=== PATIENT | male | born 1945 | race Caucasian/White ===

== ENCOUNTER 2017-03-20 10:05 | Inpatient (IN) | payer OTHER ==
[2017-03-20] MEDS ORDERED: PHARMACY CONSULT - DOSE _____ XX SCH (12:16)
[2017-03-20] MEDS ORDERED: TUSSIONEX PENNKINETIC SUSP PO PRN (12:16)
[2017-03-20] MEDS ORDERED: NS 1/2 1000 ML IV 1,000 ML IV ONE (12:22)
[2017-03-20] MEDS: NS 1/2 1000 ML IV 1,000 ML IV SCH (12:49)
[2017-03-20] MEDS: ROBITUSSIN DM PO SCH ×3 (12:49→21:16)
[2017-03-20] MEDS ORDERED: DUONEB 0.5 MG/3 MG ONE (12:56)
[2017-03-20] MEDS: DUONEB 0.5 MG/3 MG NEB SCH ×3 (13:00→20:25)
[2017-03-20 13:03] LABS: BASOPHILS # (AUTO) 0.1 X10^3/uL (0.0-0.1); BASOPHILS % (AUTO) 1.4 % (0.2-1.0); EOSINOPHILS # (AUTO) 0.2 x10^3/uL (0.0-0.2); HEMATOCRIT 32.6 % (42.0-54.0); HEMOGLOBIN 10.9 g/dL (13.5-18.0); LYMPHOCYTES # (AUTO) 0.4 X10^3/uL (1.3-2.9); LYMPHOCYTES % (AUTO) 7.9 % (21.0-51.0); MEAN CORPUSCULAR HEMOGLOBIN 26.4 pg (27.0-34.0); MEAN CORPUSCULAR HGB CONC 33.4 g/dL (33.0-35.0); MEAN CORPUSCULAR VOLUME 79.1 fL (80.0-100.0); MONOCYTES # (AUTO) 0.5 x10^3/uL (0.3-0.8); NEUTROPHILS # (AUTO) 4.2 x10^3/uL (2.2-4.8); NEUTROPHILS % (AUTO) 77.7 % (42.0-75.0); PLATELET COUNT 160 X10^3/uL (150.0-450.0); RED BLOOD COUNT 4.12 X10^6/uL (4.7-6.0); RED CELL DISTRIBUTION WIDTH 15.4 % (11.6-16.5); WHITE BLOOD COUNT 5.4 X10^3/uL (3.6-10.0)
[2017-03-20 13:10] LABS: ALANINE AMINOTRANSFERASE 14 Units/L (12-78); ALBUMIN 3.1 g/dL (3.4-5.0); ALKALINE PHOSPHATASE 97 Units/L (46-116); ASPARTATE AMINO TRANSFERASE 10 Units/L (15-37); BLOOD UREA NITROGEN 24 mg/dL (7-18); CARBON DIOXIDE 28.5 mmol/L (21-32); CHLORIDE 102 mmol/L (98-107); COR CA(FOR HYPOALB) 9.7 mg/dL (8.5-10.1); COR NA(FOR HYPERGLY) 138 mmol/L (136-145); CREATININE 0.86 mg/dL (0.70-1.30); SODIUM 136 mmol/L (136-145); TOTAL PROTEIN 6.6 g/dL (6.4-8.2); eGFR BLACK RACES > 60 (>60); eGFR NON BLACK RACES > 60 (>60)
[2017-03-20] MEDS ORDERED: SALINE 3% 15 ML NEB TX ONE (13:26)
[2017-03-20] MEDS ORDERED: SALINE 3% 15 ML NEB TX NEB ONE (13:27)
[2017-03-20] MEDS: LEVAQUIN PREMIX IV 750 MG 750 MG/150 ML BAG IV SCH (13:53)
[2017-03-20] MEDS: FORTAZ or TAZICEF INJ 1 GM in NS 100 ML IV + SPIKE MINIBAG* 100 ML IV SCH ×2 (13:53→21:16)
[2017-03-20 16:23] VITALS: BMI 35.6
--- NOTE | 2017-03-20 18:06 | RAD ---
CHEST RADIOGRAPHS PA AND LATERAL VIEWS CLINICAL HISTORY: 71-year-old male with shortness of breath and pneumonia. COMPARISON: None. FINDINGS: Partially imaged right shoulder arthroplasty. Right chest wall chemo port via subclavian ap proach with distal tip overlying the superior vena cava. The cardiopericardial silhouette is enlarged and silhouetted on the left secondary to elevation of left hemidiaphragm, basilar atelectasis and co nsolidation with air bronchograms within the left suprahilar distribution. No pneumothorax or large e ffusion. The lungs are well inflated. Pulmonary vascularity is normal. Imaged osseous structures are intact. Soft tissues are unremarkable. IMPRESSION: Consolidation left suprahilar distribution with air bronchograms with elevated left hemidiaphragm and left basilar airspace opacities. Consider CT thorax to evaluate for underlying neoplastic process pr oducing postobstructive atelectasis versus multifocal multi lobar pneumonia. Reported By:
[2017-03-20] MEDS: TYLENOL 325 MG TAB PO PRN (21:16)
[2017-03-20] MEDS: VALIUM PO PRN (22:55)
[2017-03-21] MEDS: DUONEB 0.5 MG/3 MG NEB SCH ×6 (00:57→20:16)
[2017-03-21] MEDS: NS 1/2 1000 ML IV 1,000 ML IV SCH ×2 (04:10→16:56)
[2017-03-21] MEDS: FORTAZ or TAZICEF INJ 1 GM in NS 100 ML IV + SPIKE MINIBAG* 100 ML IV SCH ×3 (06:07→21:05)
--- NOTE | 2017-03-21 06:27 | RAD ---
Examination: Portable AP chest History: SOB Comparison 03/20/2017 Findings: Stable cardiac size and position. Grossly clear right lung. No change in position of right subclavian catheter. Persistent low volume left lung with extensive areas of airspace consolidation, left diaphragm elevation. No complicating pneumothorax. Impression: No change since 1 day prior. See previously offered differential. Chest CT recommended if diagnosis has not been established. Reported By:
[2017-03-21 06:33] LABS: BASOPHILS # (AUTO) 0.1 X10^3/uL (0.0-0.1); BASOPHILS % (AUTO) 1.4 % (0.2-1.0); EOSINOPHILS # (AUTO) 0.2 x10^3/uL (0.0-0.2); EOSINOPHILS % (AUTO) 3.9 % (0.9-2.9); HEMATOCRIT 29.6 % (42.0-54.0); HEMOGLOBIN 10.2 g/dL (13.5-18.0); LYMPHOCYTES # (AUTO) 0.5 X10^3/uL (1.3-2.9); LYMPHOCYTES % (AUTO) 10.6 % (21.0-51.0); MEAN CORPUSCULAR HEMOGLOBIN 26.6 pg (27.0-34.0); MEAN CORPUSCULAR HGB CONC 34.3 g/dL (33.0-35.0); MEAN CORPUSCULAR VOLUME 77.6 fL (80.0-100.0); MEAN PLATELET VOLUME 7.1 fL (7.4-11.0); MONOCYTES # (AUTO) 0.5 x10^3/uL (0.3-0.8); MONOCYTES % (AUTO) 9.7 % (0.0-13.0); NEUTROPHILS # (AUTO) 3.6 x10^3/uL (2.2-4.8); NEUTROPHILS % (AUTO) 74.4 % (42.0-75.0); PLATELET COUNT 141 X10^3/uL (150.0-450.0); RED BLOOD COUNT 3.81 X10^6/uL (4.7-6.0); RED CELL DISTRIBUTION WIDTH 15.6 % (11.6-16.5); WHITE BLOOD COUNT 4.8 X10^3/uL (3.6-10.0)
[2017-03-21 06:50] LABS: ALANINE AMINOTRANSFERASE 13 Units/L (12-78); ALBUMIN 2.9 g/dL (3.4-5.0); ALKALINE PHOSPHATASE 84 Units/L (46-116); ASPARTATE AMINO TRANSFERASE 11 Units/L (15-37); BLOOD UREA NITROGEN 18 mg/dL (7-18); CALCIUM 8.4 mg/dL (8.5-10.1); CARBON DIOXIDE 25.1 mmol/L (21-32); CHLORIDE 103 mmol/L (98-107); COR CA(FOR HYPOALB) 9.3 mg/dL (8.5-10.1); COR NA(FOR HYPERGLY) 136 mmol/L (136-145); CREATININE 0.75 mg/dL (0.70-1.30); SODIUM 135 mmol/L (136-145); TOTAL PROTEIN 6.2 g/dL (6.4-8.2); eGFR BLACK RACES > 60 (>60); eGFR NON BLACK RACES > 60 (>60)
[2017-03-21] MEDS: ROBITUSSIN DM PO SCH ×4 (08:51→21:06)
[2017-03-21] MEDS: TYLENOL 325 MG TAB PO PRN (08:55)
[2017-03-21] MEDS: LEVAQUIN PREMIX IV 750 MG 750 MG/150 ML BAG IV SCH (13:32)
[2017-03-21] MEDS: HumuLIN R SUBCUT PRN ×3 (14:00→21:07)
[2017-03-21] MEDS: ALBUMIN HUMAN 25%- 100ML 100 ML IV SCH (14:16)
[2017-03-21] MEDS: HEMOCYTE-PLUS PO SCH (14:17)
[2017-03-21] MEDS: LYRICA CAP 75 MG PO SCH ×2 (14:17→21:07)
[2017-03-21] MEDS: ZOCOR TAB 40 MG PO SCH ×2 (16:11→21:07)
[2017-03-21] MEDS ORDERED: NS 1/2 1000 ML IV 1,000 ML IV ONE (16:53)
[2017-03-21] MEDS ORDERED: COLACE CAP 100 MG PO SCH (19:00)
[2017-03-21] MEDS: PULMICORT NEB TX 0.5 MG NEB SCH (20:16)
[2017-03-21] MEDS: MILK OF MAGNESIA PO SCH (21:06)
[2017-03-21] MEDS: COLACE CAP 100 MG PO SCH (21:06)
[2017-03-21] MEDS: FLOMAX PO SCH (21:07)
[2017-03-21] MEDS: SNACK - Diabetic Appropriate PO SCH (22:14)
[2017-03-22] MEDS: DUONEB 0.5 MG/3 MG NEB SCH ×6 (00:10→20:44)
[2017-03-22] MEDS: FORTAZ or TAZICEF INJ 1 GM in NS 100 ML IV + SPIKE MINIBAG* 100 ML IV SCH ×3 (05:35→22:32)
[2017-03-22] MEDS: NS 1/2 1000 ML IV 1,000 ML IV SCH ×2 (05:35→19:39)
[2017-03-22] MEDS: HumuLIN R SUBCUT PRN ×4 (05:36→20:50)
[2017-03-22 06:17] LABS: BASOPHILS # (AUTO) 0.1 X10^3/uL (0.0-0.1); EOSINOPHILS # (AUTO) 0.2 x10^3/uL (0.0-0.2); EOSINOPHILS % (AUTO) 4.8 % (0.9-2.9); HEMOGLOBIN 10.1 g/dL (13.5-18.0); LYMPHOCYTES # (AUTO) 0.4 X10^3/uL (1.3-2.9); LYMPHOCYTES % (AUTO) 8.9 % (21.0-51.0); MEAN CORPUSCULAR HEMOGLOBIN 26.4 pg (27.0-34.0); MEAN CORPUSCULAR HGB CONC 33.8 g/dL (33.0-35.0); MEAN CORPUSCULAR VOLUME 78.3 fL (80.0-100.0); MONOCYTES # (AUTO) 0.5 x10^3/uL (0.3-0.8); MONOCYTES % (AUTO) 11.2 % (0.0-13.0); NEUTROPHILS # (AUTO) 3.6 x10^3/uL (2.2-4.8); NEUTROPHILS % (AUTO) 74.1 % (42.0-75.0); PLATELET COUNT 149 X10^3/uL (150.0-450.0); RED BLOOD COUNT 3.83 X10^6/uL (4.7-6.0); RED CELL DISTRIBUTION WIDTH 15.8 % (11.6-16.5); WHITE BLOOD COUNT 4.9 X10^3/uL (3.6-10.0)
[2017-03-22 06:55] LABS: ALANINE AMINOTRANSFERASE 14 Units/L (12-78); ALKALINE PHOSPHATASE 80 Units/L (46-116); ASPARTATE AMINO TRANSFERASE 10 Units/L (15-37); BLOOD UREA NITROGEN 14 mg/dL (7-18); CALCIUM 8.6 mg/dL (8.5-10.1); CHLORIDE 103 mmol/L (98-107); COR CA(FOR HYPOALB) 9.4 mg/dL (8.5-10.1); COR NA(FOR HYPERGLY) 139 mmol/L (136-145); CREATININE 0.74 mg/dL (0.70-1.30); SODIUM 137 mmol/L (136-145); TOTAL PROTEIN 6.3 g/dL (6.4-8.2); eGFR BLACK RACES > 60 (>60); eGFR NON BLACK RACES > 60 (>60)
[2017-03-22] MEDS: LYRICA CAP 75 MG PO SCH ×2 (08:32→20:50)
[2017-03-22] MEDS: MILK OF MAGNESIA PO SCH ×2 (08:32→20:49)
[2017-03-22] MEDS: ROBITUSSIN DM PO SCH ×4 (08:32→20:50)
[2017-03-22] MEDS: HEMOCYTE-PLUS PO SCH (08:32)
--- NOTE | 2017-03-22 08:32 | RAD ---
Examination: Chest, PA and lateral views History: Pneumonia Comparison 03/21/2017 Findings: Stable cardiac size with grossly clear right lung. Extensive masslike consolidation left up per lobe with internal air bronchogram. Elevation left diaphragm as before. No pneumothorax or large pleural effusion. Impression: Persistent masslike consolidation left upper lobe consistent with bacterial pneumonia n eoplasm should be excluded although the air bronchogram visualized is usually associated with benign pathology. Chest CT is recommended if definitive diagnosis has not been established. Reported By:
[2017-03-22] MEDS: ALBUMIN HUMAN 25%- 100ML 100 ML IV SCH (08:33)
[2017-03-22] MEDS: PULMICORT NEB TX 0.5 MG NEB SCH ×2 (08:50→20:44)
[2017-03-22] MEDS: LEVAQUIN PREMIX IV 750 MG 750 MG/150 ML BAG IV SCH (13:45)
[2017-03-22] MEDS: TYLENOL 325 MG TAB PO PRN ×2 (13:50→22:40)
[2017-03-22] MEDS ORDERED: NS 1/2 1000 ML IV 1,000 ML IV ONE (19:37)
[2017-03-22] MEDS: ZOCOR TAB 40 MG PO SCH (20:49)
[2017-03-22] MEDS: COLACE CAP 100 MG PO SCH (20:49)
[2017-03-22] MEDS: SNACK - Diabetic Appropriate PO SCH (22:31)
[2017-03-22] MEDS: FLOMAX PO SCH (22:32)
[2017-03-23] MEDS: VALIUM PO PRN ×3 (00:23→22:10)
[2017-03-23] MEDS: DUONEB 0.5 MG/3 MG NEB SCH ×6 (00:45→20:39)
[2017-03-23] MEDS: HumuLIN R SUBCUT PRN ×4 (06:08→21:11)
[2017-03-23] MEDS: FORTAZ or TAZICEF INJ 1 GM in NS 100 ML IV + SPIKE MINIBAG* 100 ML IV SCH ×3 (06:08→20:59)
[2017-03-23 06:29] LABS: BASOPHILS # (AUTO) 0.1 X10^3/uL (0.0-0.1); BASOPHILS % (AUTO) 1.1 % (0.2-1.0); EOSINOPHILS # (AUTO) 0.3 x10^3/uL (0.0-0.2); EOSINOPHILS % (AUTO) 5.8 % (0.9-2.9); HEMATOCRIT 30.1 % (42.0-54.0); HEMOGLOBIN 10.3 g/dL (13.5-18.0); LYMPHOCYTES # (AUTO) 0.5 X10^3/uL (1.3-2.9); LYMPHOCYTES % (AUTO) 10.7 % (21.0-51.0); MEAN CORPUSCULAR HEMOGLOBIN 26.8 pg (27.0-34.0); MEAN CORPUSCULAR HGB CONC 34.2 g/dL (33.0-35.0); MEAN CORPUSCULAR VOLUME 78.3 fL (80.0-100.0); MEAN PLATELET VOLUME 6.9 fL (7.4-11.0); MONOCYTES # (AUTO) 0.5 x10^3/uL (0.3-0.8); MONOCYTES % (AUTO) 10.5 % (0.0-13.0); NEUTROPHILS # (AUTO) 3.3 x10^3/uL (2.2-4.8); NEUTROPHILS % (AUTO) 71.9 % (42.0-75.0); PLATELET COUNT 148 X10^3/uL (150.0-450.0); RED BLOOD COUNT 3.84 X10^6/uL (4.7-6.0); RED CELL DISTRIBUTION WIDTH 15.3 % (11.6-16.5); WHITE BLOOD COUNT 4.6 X10^3/uL (3.6-10.0)
[2017-03-23 06:43] LABS: ALANINE AMINOTRANSFERASE 14 Units/L (12-78); ALBUMIN 3.2 g/dL (3.4-5.0); ALKALINE PHOSPHATASE 79 Units/L (46-116); ASPARTATE AMINO TRANSFERASE 9 Units/L (15-37); BLOOD UREA NITROGEN 15 mg/dL (7-18); CALCIUM 8.6 mg/dL (8.5-10.1); CARBON DIOXIDE 28.3 mmol/L (21-32); CHLORIDE 102 mmol/L (98-107); COR CA(FOR HYPOALB) 9.2 mg/dL (8.5-10.1); COR NA(FOR HYPERGLY) 138 mmol/L (136-145); CREATININE 0.74 mg/dL (0.70-1.30); SODIUM 136 mmol/L (136-145); TOTAL PROTEIN 6.6 g/dL (6.4-8.2); eGFR BLACK RACES > 60 (>60); eGFR NON BLACK RACES > 60 (>60)
--- NOTE | 2017-03-23 06:53 | RAD ---
Examination: AP chest History: Pneumonia Comparison 03/22/2017 Findings: There is persistent opacification in the left upper chest as before. Detail is limited; rad iographic artifact obscures portions of the left base. The right lung remains grossly clear. Impression: No definite change in [address] recommended if diagnosis of the left upper lobe les ion has not been previously established. Reported By:
[2017-03-23] MEDS: TYLENOL 325 MG TAB PO PRN ×2 (07:52→14:03)
[2017-03-23] MEDS: PULMICORT NEB TX 0.5 MG NEB SCH ×2 (08:51→20:39)
[2017-03-23] MEDS: HEMOCYTE-PLUS PO SCH (10:30)
[2017-03-23] MEDS: LYRICA CAP 75 MG PO SCH ×2 (10:30→20:50)
[2017-03-23] MEDS: ALBUMIN HUMAN 25%- 100ML 100 ML IV SCH (10:30)
[2017-03-23] MEDS: MILK OF MAGNESIA PO SCH ×2 (10:31→20:50)
[2017-03-23] MEDS: ROBITUSSIN DM PO SCH ×4 (10:31→20:50)
--- NOTE | 2017-03-23 10:57 | DR.UPDATE ---
H&P Update History and Physical Update: WAS SEEN IN THE OFFICE ON 03/19/2017. PATIENT RETURNED THE FOLLOWING DAY WITH SAME COMPLAINTS AND NO IMPROVEMENT IN SYMPTOMS. PATIENT WAS ADMITTED TO THE HOSPITAL ON THE PNEUMONIA PROTOCOL FOR FURTHER TREATMENT AND EVALUATION. H&P WAS COMPLETED PRIOR TO ADMISSION. PATIENT HAS BEEN SEEN AND EXAMINED WITH NO CHANGES NOTED TO H&P. Changes noted: NO Yes with the following:
[2017-03-23] MEDS: NS 1/2 1000 ML IV 1,000 ML IV SCH ×2 (11:25→19:25)
[2017-03-23] MEDS: LEVAQUIN PREMIX IV 750 MG 750 MG/150 ML BAG IV SCH (13:00)
--- NOTE | 2017-03-23 16:18 | CT ---
HISTORY: Lung cancer left upper lobe Study: CT chest with contrast Comparison: Same day radiograph Technique: Multiple axial images of the chest were obtained from the thoracic inlet to the upper abdo men after the administration of IV contrast. Dose reduction techniques including Automated Exposure Control (AEC) and adjustment of mA and kV were utilized. Findings: There is a right chest wall port terminating in the SVC. Normal-sized heart with calcified plaque see n in the coronary arteries. The aorta is normal in caliber. There is a small pericardial effusion. Th ere is left lung volume loss. There is consolidation with air bronchograms seen in the left perihilar region. The findings could represent pneumonia. Post treatment changes such as of the patient is pat ent history of previous radiation in this region could also have a similar appearance. There is a sma ll loculated effusion in the posterior left lung base. No bulky adenopathy is seen. There are degener ative changes of the bony thorax with diffuse osteopenia multilevel spondylosis noted. No acute findi ngs are seen in visualized upper abdomen. IMPRESSION: 1. Left lung volume loss with perihilar consolidation with air bronchograms that may represent pneumo chelsi. Post radiation changes may also have a similar appearance; Correlation with any previous cross-s ectional imaging, if available, may be beneficial to exclude recurrent disease. There is a small locu lated effusion at the posterior left lung base. 2. Small pericardial effusion. Reported By:
[2017-03-23] MEDS ORDERED: NS 1/2 1000 ML IV 1,000 ML IV ONE (19:26)
--- NOTE | 2017-03-23 20:33 | PCM.PROG ---
Progress Note - Progress Note for Day of Date: 03/21/17 - Subjective Subjective: IS BEING TREATED FOR BRONCHOPNEUMONIA. TODAY, HE IS ALERT AND ORIENTED, LYING IN BED ON MORNING ROUNDS. HE CONTINUES WITH COMPLAINTS OF SHORTNESS OF BREATH AND PRODUCTIVE COUGH. THICK, YELLOW SPUTUM IS NOTED IN CONTAINER AT BEDSIDE. ON EXAMINATION, HEART IS REGULAR IN RATE AND RHYTHM. BILATERAL LUNGS ARE NOTED WITH SCATTERED WHEEZING AND RHONCHI. HE IS CURRENTLY UTILIZING OXYGEN VIA NASAL CANNULA AT 2L/MIN. ABDOMEN IS ROUND, SOFT, AND NON- TENDER WITH NORMAL BOWEL SOUNDS NOTED IN ALL QUADRANTS. THERE IS NORMAL RANGE OF MOTION NOTED TO ALL EXTREMITIES. HIS VITALS THIS MORNING ARE 97.7-88-22-96%- 141/74. LABS WERE OBTAINED. ABNORMAL LAB VALUES INCLUDE THE FOLLOWING: RBC 3.81 , HGB 10.2, HCT 29.6, SODIUM 135, GLUCOSE 154, CALCIUM 8.4, AST 11, TOTAL PROTEIN 6.2, ALBUMIN 2.9. A CHEST XRAY WAS OBTAINED TODAY AND REPORTED PERSISTENT LOW VOLUME LEFT LUNG WITH EXTENSIVE AREAS OF AIRSPACE CONSOLIDATION, LEFT DIAPHRAGM ELEVATION. TODAY, WE WILL START ALBUMIN 25% IV DAILY, PULMCORT NEB TX, AND SLIDING SCALE INSULIN. WE WILL RESUME HOME MEDICATIONS. OTHERWISE, WE WILL CONTINUE WITH CURRENT PLAN OF CARE. WE PLAN TO FOLLOW UP WITH AM LABS AND CONTINUE TO MONITOR PATIENT. - Past Medical Family Social History Past Med/Fam/Surg Hx: No changes since H&P Allergies: Allergies No Known Drug Allergies Allergy (Verified 03/20/17 12:15) - Review of Systems ROS: No change since H&P - Vital Signs and I&O's Vital Signs: Temperature 98.4 F Pulse Rate [Left Brachial] 87 Pulse Rate [Left] 92 Pulse Rate [Right Brachial] 90 Pulse Rate 89 Respiratory Rate 20 Blood Pressure [Left Arm] 139/84 Blood Pressure [Right Arm] 185/95 O2 Sat by Pulse Oximetry 98 Intake and Output: Intake & Output 03/21/17 03/22/17 03/23/17 03/24/17 11:59 11:59 11:59 11:59 Intake Total 1515 3160 3320 1340 Output Total 925 3900 2725 850 Balance 590 -740 595 490 - Physical Exam Oriented: Normal Eyes: Normal. negative: Blurred Vision, Diplopia, Discharge, Pain, Redness, Photophobia, Other Ear: Normal. negative: Right, Left, Swelling, Ecchymosis, Hemotypanum, Abrasion , Laceration Nose: Normal Throat: Normal Respiratory: Right, Left, Generalized, Wheezes, Rhonchi Cardiovascular: Normal : Normal. negative: Dysuria, Hematuria, Frequency, Discharge, Testicular Pain , Bleeding, , Other Auscultation: Bowel Sounds: Normal. negative: Bruit, Absent, Increased, Decreased, High Pitched, Other Palpation: Normal Tenderness: Normal. negative: Rebound, Guarding, Rigidity Skin: Normal Musculoskeletal: Normal Psychiatric: Normal. negative: Anxiety, Depression, Agitation, Other Mood Description: Calm Affect: negative: Angry, Anxious, Depressed, Flat, Hysterical, Quiet, Violent, Normal Speech Pattern: Clear, Appropriate - Laboratory and Diagnostics Result Diagrams: 03/23/17 05:43 03/23/17 05:43 Labs: 03/20/17 12:45 Blood Blood Culture - Preliminary 03/20/17 12:38 Blood Blood Culture - Preliminary 03/20/17 14:00 Sputum - Expectorated Sputum Sputum Culture - Final 03/20/17 14:00 Sputum - Expectorated Sputum - Final Laboratory WBC 4.6 X10^3/uL (3.6-10.0) 03/23/17 05:43 RBC 3.84 X10^6/uL (4.7-6.0) L 03/23/17 05:43 Hgb 10.3 g/dL (13.5-18.0) L 03/23/17 05:43 Hct 30.1 % (42.0-54.0) L 03/23/17 05:43 MCV 78.3 fL (80.0-100.0) L 03/23/17 05:43 MCH 26.8 pg (27.0-34.0) L 03/23/17 05:43 MCHC 34.2 g/dL (33.0-35.0) 03/23/17 05:43 RDW 15.3 % (11.6-16.5) 03/23/17 05:43 Plt Count 148 X10^3/uL (150.0-450.0) L 03/23/17 05:43 MPV 6.9 fL (7.4-11.0) L 03/23/17 05:43 Neut % 71.9 % (42.0-75.0) 03/23/17 05:43 Lymph % 10.7 % (21.0-51.0) L 03/23/17 05:43 [place] % 10.5 % (0.0-13.0) 03/23/17 05:43 Eos % 5.8 % (0.9-2.9) H 03/23/17 05:43 Baso % 1.1 % (0.2-1.0) H 03/23/17 05:43 Neut # 3.3 x10^3/uL (2.2-4.8) 03/23/17 05:43 Lymph # 0.5 X10^3/uL (1.3-2.9) L 03/23/17 05:43 [place] # 0.5 x10^3/uL (0.3-0.8) 03/23/17 05:43 Eos # 0.3 x10^3/uL (0.0-0.2) H 03/23/17 05:43 Baso # 0.1 X10^3/uL (0.0-0.1) 03/23/17 05:43 Absolute Nucleated RBC 0.0 /100WBC 03/23/17 05:43 Sodium 136 mmol/L (136-145) 03/23/17 05:43 Corrected Sodium 138 mmol/L (136-145) 03/23/17 05:43 Potassium 4.6 mmol/L (3.5-5.1) 03/23/17 05:43 Chloride 102 mmol/L (98-107) 03/23/17 05:43 Carbon Dioxide 28.3 mmol/L (21-32) 03/23/17 05:43 BUN 15 mg/dL (7-18) 03/23/17 05:43 Creatinine 0.74 mg/dL (0.70-1.30) 03/23/17 05:43 Est GFR (MDRD) Af Amer > 60 (>60) 03/23/17 05:43 Est GFR (MDRD) Non-Af > 60 (>60) 03/23/17 05:43 Glucose 197 mg/dL (65-99) H 03/23/17 05:43 POC Glucose (mg/dL) 229 mg/dL (65-99) H 03/23/17 20:16 Calcium 8.6 mg/dL (8.5-10.1) 03/23/17 05:43 Corrected Calcium 9.2 mg/dL (8.5-10.1) 03/23/17 05:43 Total Bilirubin 0.40 mg/dL (0.2-1.0) 03/23/17 05:43 AST 9 Units/L (15-37) L 03/23/17 05:43 ALT 14 Units/L (12-78) 03/23/17 05:43 Alkaline Phosphatase 79 Units/L (46-116) 03/23/17 05:43 Total Protein 6.6 g/dL (6.4-8.2) 03/23/17 05:43 Albumin 3.2 g/dL (3.4-5.0) L 03/23/17 05:43 Globulin 3.4 g/dL (2.5-4.5) 03/23/17 05:43 Albumin/Globulin Ratio 0.9 Ratio (1.1-2.1) L 03/23/17 05:43 - Plan (1) Bronchopneumonia Status: Acute Plan: CONTINUE PNEUMONIA PROTOCOL, BREATHING TX, IV ANTIBIOTICS, SUPPLEMENTAL OXYGEN (2) Diabetes Status: Chronic Qualifiers: Diabetes mellitus type: type 2 Diabetes mellitus complication status: without complication Diabetes mellitus skilled nursing insulin use: with skilled nursing use Qualified Code(s): E11.9 - Type 2 diabetes mellitus without complications ; Z79.4 - shelter (current) use of insulin; Z79.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 of insulin; Z79.4 - shelter (current) use of insulin; Z79.4 - terminal gauger supervisor ( current) use of insulin Plan: SLIDING SCALE INSULIN, CONTINUE TO MONITOR (3) Anemia Status: Chronic Qualifiers: Anemia type: iron deficiency Iron deficiency anemia type: unspecified iron deficiency Qualified Code(s): D50.9 - Iron deficiency anemia, unspecified Plan: HEMOCYTE PLUS 1 TABLET DAILY, CONTINUE TO MONITOR (4) Diabetic neuropathy Status: Chronic Qualifiers: Diabetes mellitus type: type 2 Diabetes mellitus complication detail: diabetic autonomic neuropathy Qualified Code(s): E11.43 - Type 2 diabetes mellitus with diabetic autonomic (poly)neuropathy Plan: CONTINUE LYRICA, CONTINUE TO MONITOR (5) Hyperlipidemia Status: Chronic Qualifiers: Hyperlipidemia type: mixed hyperlipidemia Qualified Code(s): E78.2 - Mixed hyperlipidemia Plan: CONTINUE ZOCOR, CONTINUE TO MONITOR (6) Anxiety Status: Chronic Plan: CONTINUE VALIUM, CONTINUE TO MONITOR
[2017-03-23] MEDS: FLOMAX PO SCH (20:50)
[2017-03-23] MEDS: COLACE CAP 100 MG PO SCH (20:50)
[2017-03-23] MEDS: ZOCOR TAB 40 MG PO SCH (20:50)
[2017-03-23] MEDS: SNACK - Diabetic Appropriate PO SCH (21:05)
[2017-03-24] MEDS: DUONEB 0.5 MG/3 MG NEB SCH ×4 (00:58→11:55)
[2017-03-24] MEDS: TYLENOL 325 MG TAB PO PRN (00:59)
[2017-03-24] MEDS: NS 1/2 1000 ML IV 1,000 ML IV SCH (01:00)
[2017-03-24] MEDS: FORTAZ or TAZICEF INJ 1 GM in NS 100 ML IV + SPIKE MINIBAG* 100 ML IV SCH (05:58)
[2017-03-24] MEDS: HumuLIN R SUBCUT PRN ×3 (05:59→06:02)
[2017-03-24 06:16] LABS: EOSINOPHILS # (AUTO) 0.3 x10^3/uL (0.0-0.2); EOSINOPHILS % (AUTO) 6.6 % (0.9-2.9); HEMATOCRIT 31.8 % (42.0-54.0); HEMOGLOBIN 10.6 g/dL (13.5-18.0); LYMPHOCYTES # (AUTO) 0.5 X10^3/uL (1.3-2.9); LYMPHOCYTES % (AUTO) 10.1 % (21.0-51.0); MEAN CORPUSCULAR HEMOGLOBIN 26.2 pg (27.0-34.0); MEAN CORPUSCULAR HGB CONC 33.3 g/dL (33.0-35.0); MEAN CORPUSCULAR VOLUME 78.8 fL (80.0-100.0); MEAN PLATELET VOLUME 6.9 fL (7.4-11.0); MONOCYTES # (AUTO) 0.5 x10^3/uL (0.3-0.8); MONOCYTES % (AUTO) 10.3 % (0.0-13.0); NEUTROPHILS # (AUTO) 3.3 x10^3/uL (2.2-4.8); PLATELET COUNT 167 X10^3/uL (150.0-450.0); RED BLOOD COUNT 4.03 X10^6/uL (4.7-6.0); RED CELL DISTRIBUTION WIDTH 15.5 % (11.6-16.5); WHITE BLOOD COUNT 4.6 X10^3/uL (3.6-10.0)
[2017-03-24 06:40] LABS: ALANINE AMINOTRANSFERASE 15 Units/L (12-78); ALBUMIN 3.2 g/dL (3.4-5.0); ALKALINE PHOSPHATASE 82 Units/L (46-116); ASPARTATE AMINO TRANSFERASE 6 Units/L (15-37); BLOOD UREA NITROGEN 15 mg/dL (7-18); CALCIUM 8.8 mg/dL (8.5-10.1); CARBON DIOXIDE 28.9 mmol/L (21-32); CHLORIDE 100 mmol/L (98-107); COR CA(FOR HYPOALB) 9.4 mg/dL (8.5-10.1); COR NA(FOR HYPERGLY) 139 mmol/L (136-145); SODIUM 136 mmol/L (136-145); TOTAL PROTEIN 6.7 g/dL (6.4-8.2); eGFR BLACK RACES > 60 (>60); eGFR NON BLACK RACES > 60 (>60)
[2017-03-24] MEDS: PULMICORT NEB TX 0.5 MG NEB SCH (08:24)
[2017-03-24] MEDS: ALBUMIN HUMAN 25%- 100ML 100 ML IV SCH (10:01)
[2017-03-24] MEDS: LEVAQUIN PREMIX IV 750 MG 750 MG/150 ML BAG IV SCH (10:02)
[2017-03-24] MEDS: HEMOCYTE-PLUS PO SCH (10:02)
[2017-03-24] MEDS: LYRICA CAP 75 MG PO SCH (10:02)
[2017-03-24] MEDS: ROBITUSSIN DM PO SCH (10:03)
[2017-03-24] MEDS: MILK OF MAGNESIA PO SCH (10:03)
[2017-03-24 12:15] VITALS: BP 194/91
--- NOTE | 2017-03-24 12:18 | PCM.PROG ---
Progress Note - Progress Note for Day of Date: 03/22/17 - Subjective Subjective: IS BEING TREATED FOR BRONCHOPNEUMONIA. TODAY, HE IS ALERT AND ORIENTED, LYING IN BED ON MORNING ROUNDS. HE CONTINUES WITH COMPLAINTS OF SHORTNESS OF BREATH AND PRODUCTIVE COUGH. ON EXAMINATION, HEART IS REGULAR IN RATE AND RHYTHM. BILATERAL LUNGS ARE NOTED WITH SCATTERED WHEEZING AND RHONCHI. HE IS CURRENTLY UTILIZING OXYGEN VIA NASAL CANNULA AT 2L/MIN. ABDOMEN IS ROUND, SOFT, AND NON-TENDER WITH NORMAL BOWEL SOUNDS NOTED IN ALL QUADRANTS. THERE IS NORMAL RANGE OF MOTION NOTED TO ALL EXTREMITIES. HIS VITALS THIS MORNING ARE 98.0-94-22-97%-144/88. LABS WERE OBTAINED. ABNORMAL LAB VALUES INCLUDE THE FOLLOWING: RBC 3.83, HGB 10.1, HCT 30.0, PLT COUNT 149, GLUCOSE 197, AST 9, ALBUMIN 3.2. A CHEST XRAY WAS OBTAINED TODAY AND REPORTED PERSISTENT MASSLIKE CONSOLIDATION LEFT UPPER LOBE CONSISTENT WITH BACTERIAL PNEUMONIA. NEOPLASM SHOULD BE EXCLUDED ALTHOUGH THE AIR BRONCHOGRAM VISUALIZED IS USUALLY ASSOCIATED WITH BENIGN PATHOLOGY. TODAY, WE WILL CONTINUE WITH IV ANTIBIOTICS, RESPIRATORY TREATMENTS, AND CURRENT PLAN OF CARE. WE PLAN TO FOLLOW UP WITH AM LABS AND CHEST XRAY AND CONTINUE TO MONITOR PATIENT. - Past Medical Family Social History Past Med/Fam/Surg Hx: No changes since H&P Allergies: Allergies No Known Drug Allergies Allergy (Verified 03/20/17 12:15) - Review of Systems ROS: No change since H&P - Vital Signs and I&O's Vital Signs: Temperature 98 F Pulse Rate [Left Brachial] 100 Pulse Rate [Left] 92 Pulse Rate [Right Brachial] 90 Pulse Rate 89 Respiratory Rate 22 Blood Pressure [Left Arm] 194/91 Blood Pressure [Right Arm] 185/95 O2 Sat by Pulse Oximetry 99 Intake and Output: Intake & Output 03/22/17 03/23/17 03/24/17 03/25/17 11:59 11:59 11:59 11:59 Intake Total 3160 3320 2780 Output Total 3900 2725 3100 Balance -740 595 -320 - Physical Exam Oriented: Normal Eyes: Normal. negative: Blurred Vision, Diplopia, Discharge, Pain, Redness, Photophobia, Other Ear: Normal. negative: Right, Left, Swelling, Ecchymosis, Hemotypanum, Abrasion , Laceration Nose: Normal Throat: Normal Respiratory: Right, Left, Generalized, Wheezes, Rhonchi Cardiovascular: Normal : Normal. negative: Dysuria, Hematuria, Frequency, Discharge, Testicular Pain , Bleeding, , Other Auscultation: Bowel Sounds: Normal. negative: Bruit, Absent, Increased, Decreased, High Pitched, Other Palpation: Normal Tenderness: Normal. negative: Rebound, Guarding, Rigidity Skin: Normal Musculoskeletal: Normal Psychiatric: Normal. negative: Anxiety, Depression, Agitation, Other Mood Description: Calm Affect: negative: Angry, Anxious, Depressed, Flat, Hysterical, Quiet, Violent, Normal Speech Pattern: Clear, Appropriate - Laboratory and Diagnostics Result Diagrams: 03/24/17 05:40 03/24/17 05:40 Labs: 03/20/17 12:45 Blood Blood Culture - Preliminary 03/20/17 12:38 Blood Blood Culture - Preliminary 03/20/17 14:00 Sputum - Expectorated Sputum Sputum Culture - Final 03/20/17 14:00 Sputum - Expectorated Sputum - Final Laboratory WBC 4.6 X10^3/uL (3.6-10.0) 03/24/17 05:40 RBC 4.03 X10^6/uL (4.7-6.0) L 03/24/17 05:40 Hgb 10.6 g/dL (13.5-18.0) L 03/24/17 05:40 Hct 31.8 % (42.0-54.0) L 03/24/17 05:40 MCV 78.8 fL (80.0-100.0) L 03/24/17 05:40 MCH 26.2 pg (27.0-34.0) L 03/24/17 05:40 MCHC 33.3 g/dL (33.0-35.0) 03/24/17 05:40 RDW 15.5 % (11.6-16.5) 03/24/17 05:40 Plt Count 167 X10^3/uL (150.0-450.0) 03/24/17 05:40 MPV 6.9 fL (7.4-11.0) L 03/24/17 05:40 Neut % 72.0 % (42.0-75.0) 03/24/17 05:40 Lymph % 10.1 % (21.0-51.0) L 03/24/17 05:40 [place] % 10.3 % (0.0-13.0) 03/24/17 05:40 Eos % 6.6 % (0.9-2.9) H 03/24/17 05:40 Baso % 1.0 % (0.2-1.0) 03/24/17 05:40 Neut # 3.3 x10^3/uL (2.2-4.8) 03/24/17 05:40 Lymph # 0.5 X10^3/uL (1.3-2.9) L 03/24/17 05:40 [place] # 0.5 x10^3/uL (0.3-0.8) 03/24/17 05:40 Eos # 0.3 x10^3/uL (0.0-0.2) H 03/24/17 05:40 Baso # 0.0 X10^3/uL (0.0-0.1) 03/24/17 05:40 Absolute Nucleated RBC 0.0 /100WBC 03/24/17 05:40 Sodium 136 mmol/L (136-145) 03/24/17 05:40 Corrected Sodium 139 mmol/L (136-145) 03/24/17 05:40 Potassium 4.6 mmol/L (3.5-5.1) 03/24/17 05:40 Chloride 100 mmol/L (98-107) 03/24/17 05:40 Carbon Dioxide 28.9 mmol/L (21-32) 03/24/17 05:40 BUN 15 mg/dL (7-18) 03/24/17 05:40 Creatinine 0.80 mg/dL (0.70-1.30) 03/24/17 05:40 Est GFR (MDRD) Af Amer > 60 (>60) 03/24/17 05:40 Est GFR (MDRD) Non-Af > 60 (>60) 03/24/17 05:40 Glucose 241 mg/dL (65-99) H 03/24/17 05:40 POC Glucose (mg/dL) 249 mg/dL (65-99) H 03/24/17 11:49 Calcium 8.8 mg/dL (8.5-10.1) 03/24/17 05:40 Corrected Calcium 9.4 mg/dL (8.5-10.1) 03/24/17 05:40 Total Bilirubin 0.50 mg/dL (0.2-1.0) 03/24/17 05:40 AST 6 Units/L (15-37) L 03/24/17 05:40 ALT 15 Units/L (12-78) 03/24/17 05:40 Alkaline Phosphatase 82 Units/L (46-116) 03/24/17 05:40 Total Protein 6.7 g/dL (6.4-8.2) 03/24/17 05:40 Albumin 3.2 g/dL (3.4-5.0) L 03/24/17 05:40 Globulin 3.5 g/dL (2.5-4.5) 03/24/17 05:40 Albumin/Globulin Ratio 0.9 Ratio (1.1-2.1) L 03/24/17 05:40 - Plan (1) Bronchopneumonia Status: Acute Plan: CONTINUE PNEUMONIA PROTOCOL, BREATHING TX, IV ANTIBIOTICS, SUPPLEMENTAL OXYGEN (2) Diabetes Status: Chronic Qualifiers: Diabetes mellitus type: type 2 Diabetes mellitus complication status: without complication Diabetes mellitus petroleum terminal plant operator insulin use: with senior care use Qualified Code(s): E11.9 - Type 2 diabetes mellitus without complications ; Z79.4 - intermediate (current) use of insulin; Z79.4 - petroleum terminal plant operator (current) use of insulin; Z79.4 - petroleum terminal plant operator (current) use of insulin; Z79.4 - intermediate ( current) use of insulin Plan: SLIDING SCALE INSULIN, CONTINUE TO MONITOR (3) Anemia Status: Chronic Qualifiers: Anemia type: iron deficiency Iron deficiency anemia type: unspecified iron deficiency Qualified Code(s): D50.9 - Iron deficiency anemia, unspecified Plan: HEMOCYTE PLUS 1 TABLET DAILY, CONTINUE TO MONITOR (4) Diabetic neuropathy Status: Chronic Qualifiers: Diabetes mellitus type: type 2 Diabetes mellitus complication detail: diabetic autonomic neuropathy Qualified Code(s): E11.43 - Type 2 diabetes mellitus with diabetic autonomic (poly)neuropathy Plan: CONTINUE LYRICA, CONTINUE TO MONITOR (5) Hyperlipidemia Status: Chronic Qualifiers: Hyperlipidemia type: mixed hyperlipidemia Qualified Code(s): E78.2 - Mixed hyperlipidemia Plan: CONTINUE ZOCOR, CONTINUE TO MONITOR (6) Anxiety Status: Chronic Plan: CONTINUE VALIUM, CONTINUE TO MONITOR
--- NOTE | 2017-03-24 12:27 | PCM.PROG ---
Progress Note - Progress Note for Day of Date: 03/23/17 - Subjective Subjective: IS BEING TREATED FOR BRONCHOPNEUMONIA. TODAY, HE IS ALERT AND ORIENTED, LYING IN BED ON MORNING ROUNDS. HE CONTINUES WITH COMPLAINTS OF SHORTNESS OF BREATH AND PRODUCTIVE COUGH. HE REPORTS THAT THE SHORTNESS OF BREATH HAS INCREASED SINCE YESTERDAY. ON EXAMINATION, HEART IS REGULAR IN RATE AND RHYTHM. BILATERAL LUNGS CONTINUE WITH SCATTERED WHEEZING AND RHONCHI. HE IS CURRENTLY UTILIZING OXYGEN VIA NASAL CANNULA AT 2L/MIN. ABDOMEN IS ROUND, SOFT, AND NON-TENDER WITH NORMAL BOWEL SOUNDS NOTED IN ALL QUADRANTS. THERE IS NORMAL RANGE OF MOTION NOTED TO ALL EXTREMITIES. HIS VITALS THIS MORNING ARE 97.7-92-24 -97%-139/84. LABS WERE OBTAINED. HE REMAINS HEMODYNAMICALLY STABLE TODAY. A CHEST XRAY WAS OBTAINED TODAY AND REPORTED PERSISTENT OPACIFICATION IN THE LEFT UPPER CHEST. DUE TO INCREASED SHORTNESS OF BREATH AND HISTORY OF LUNG CANCER, A CHEST CT WITH CONTRAST WILL BE ORDERED FOR TODAY. OTHERWISE, WE WILL CONTINUE WITH IV ANTIBIOTICS, RESPIRATORY TREATMENTS, AND CURRENT PLAN OF CARE. WE PLAN TO FOLLOW UP WITH AM LABS AND CHEST XRAY AND CONTINUE TO MONITOR PATIENT. - Past Medical Family Social History Past Med/Fam/Surg Hx: No changes since H&P Allergies: Allergies No Known Drug Allergies Allergy (Verified 03/20/17 12:15) - Review of Systems ROS: No change since H&P - Vital Signs and I&O's Vital Signs: Temperature 98 F Pulse Rate [Left Brachial] 100 Pulse Rate [Left] 92 Pulse Rate [Right Brachial] 90 Pulse Rate 89 Respiratory Rate 22 Blood Pressure [Left Arm] 194/91 Blood Pressure [Right Arm] 185/95 O2 Sat by Pulse Oximetry 99 Intake and Output: Intake & Output 03/22/17 03/23/17 03/24/17 03/25/17 11:59 11:59 11:59 11:59 Intake Total 3160 3320 2780 Output Total 3900 2725 3100 Balance -740 595 -320 - Physical Exam Oriented: Normal Eyes: Normal. negative: Blurred Vision, Diplopia, Discharge, Pain, Redness, Photophobia, Other Ear: Normal. negative: Right, Left, Swelling, Ecchymosis, Hemotypanum, Abrasion , Laceration Nose: Normal Throat: Normal Respiratory: Right, Left, Generalized, Wheezes, Rhonchi Cardiovascular: Normal : Normal. negative: Dysuria, Hematuria, Frequency, Discharge, Testicular Pain , Bleeding, , Other Auscultation: Bowel Sounds: Normal. negative: Bruit, Absent, Increased, Decreased, High Pitched, Other Palpation: Normal Tenderness: Normal. negative: Rebound, Guarding, Rigidity Skin: Normal Musculoskeletal: Normal Psychiatric: Normal. negative: Anxiety, Depression, Agitation, Other Mood Description: Calm Affect: negative: Angry, Anxious, Depressed, Flat, Hysterical, Quiet, Violent, Normal Speech Pattern: Clear, Appropriate - Laboratory and Diagnostics Result Diagrams: 03/24/17 05:40 03/24/17 05:40 Labs: 03/20/17 12:45 Blood Blood Culture - Preliminary 03/20/17 12:38 Blood Blood Culture - Preliminary 03/20/17 14:00 Sputum - Expectorated Sputum Sputum Culture - Final 03/20/17 14:00 Sputum - Expectorated Sputum - Final Laboratory WBC 4.6 X10^3/uL (3.6-10.0) 03/24/17 05:40 RBC 4.03 X10^6/uL (4.7-6.0) L 03/24/17 05:40 Hgb 10.6 g/dL (13.5-18.0) L 03/24/17 05:40 Hct 31.8 % (42.0-54.0) L 03/24/17 05:40 MCV 78.8 fL (80.0-100.0) L 03/24/17 05:40 MCH 26.2 pg (27.0-34.0) L 03/24/17 05:40 MCHC 33.3 g/dL (33.0-35.0) 03/24/17 05:40 RDW 15.5 % (11.6-16.5) 03/24/17 05:40 Plt Count 167 X10^3/uL (150.0-450.0) 03/24/17 05:40 MPV 6.9 fL (7.4-11.0) L 03/24/17 05:40 Neut % 72.0 % (42.0-75.0) 03/24/17 05:40 Lymph % 10.1 % (21.0-51.0) L 03/24/17 05:40 [place] % 10.3 % (0.0-13.0) 03/24/17 05:40 Eos % 6.6 % (0.9-2.9) H 03/24/17 05:40 Baso % 1.0 % (0.2-1.0) 03/24/17 05:40 Neut # 3.3 x10^3/uL (2.2-4.8) 03/24/17 05:40 Lymph # 0.5 X10^3/uL (1.3-2.9) L 03/24/17 05:40 [place] # 0.5 x10^3/uL (0.3-0.8) 03/24/17 05:40 Eos # 0.3 x10^3/uL (0.0-0.2) H 03/24/17 05:40 Baso # 0.0 X10^3/uL (0.0-0.1) 03/24/17 05:40 Absolute Nucleated RBC 0.0 /100WBC 03/24/17 05:40 Sodium 136 mmol/L (136-145) 03/24/17 05:40 Corrected Sodium 139 mmol/L (136-145) 03/24/17 05:40 Potassium 4.6 mmol/L (3.5-5.1) 03/24/17 05:40 Chloride 100 mmol/L (98-107) 03/24/17 05:40 Carbon Dioxide 28.9 mmol/L (21-32) 03/24/17 05:40 BUN 15 mg/dL (7-18) 03/24/17 05:40 Creatinine 0.80 mg/dL (0.70-1.30) 03/24/17 05:40 Est GFR (MDRD) Af Amer > 60 (>60) 03/24/17 05:40 Est GFR (MDRD) Non-Af > 60 (>60) 03/24/17 05:40 Glucose 241 mg/dL (65-99) H 03/24/17 05:40 POC Glucose (mg/dL) 249 mg/dL (65-99) H 03/24/17 11:49 Calcium 8.8 mg/dL (8.5-10.1) 03/24/17 05:40 Corrected Calcium 9.4 mg/dL (8.5-10.1) 03/24/17 05:40 Total Bilirubin 0.50 mg/dL (0.2-1.0) 03/24/17 05:40 AST 6 Units/L (15-37) L 03/24/17 05:40 ALT 15 Units/L (12-78) 03/24/17 05:40 Alkaline Phosphatase 82 Units/L (46-116) 03/24/17 05:40 Total Protein 6.7 g/dL (6.4-8.2) 03/24/17 05:40 Albumin 3.2 g/dL (3.4-5.0) L 03/24/17 05:40 Globulin 3.5 g/dL (2.5-4.5) 03/24/17 05:40 Albumin/Globulin Ratio 0.9 Ratio (1.1-2.1) L 03/24/17 05:40 - Plan (1) Bronchopneumonia Status: Acute Plan: CONTINUE PNEUMONIA PROTOCOL, BREATHING TX, IV ANTIBIOTICS, SUPPLEMENTAL OXYGEN (2) Shortness of breath Status: Acute Plan: OBTAIN CHEST CT WITH CONTRAST, CONTINUE TO MONITOR (3) Diabetes Status: Chronic Qualifiers: Diabetes mellitus type: type 2 Diabetes mellitus complication status: without complication Diabetes mellitus keno terminal operator insulin use: with keno terminal operator use Qualified Code(s): E11.9 - Type 2 diabetes mellitus without complications ; Z79.4 - terminal press operator (current) use of insulin; Z79.4 - half-way (current) use of insulin; Z79.4 - terminal press operator (current) use of insulin; Z79.4 - terminal press operator ( current) use of insulin Plan: SLIDING SCALE INSULIN, CONTINUE TO MONITOR (4) Anemia Status: Chronic Qualifiers: Anemia type: iron deficiency Iron deficiency anemia type: unspecified iron deficiency Qualified Code(s): D50.9 - Iron deficiency anemia, unspecified Plan: HEMOCYTE PLUS 1 TABLET DAILY, CONTINUE TO MONITOR (5) Diabetic neuropathy Status: Chronic Qualifiers: Diabetes mellitus type: type 2 Diabetes mellitus complication detail: diabetic autonomic neuropathy Qualified Code(s): E11.43 - Type 2 diabetes mellitus with diabetic autonomic (poly)neuropathy Plan: CONTINUE LYRICA, CONTINUE TO MONITOR (6) Hyperlipidemia Status: Chronic Qualifiers: Hyperlipidemia type: mixed hyperlipidemia Qualified Code(s): E78.2 - Mixed hyperlipidemia Plan: CONTINUE ZOCOR, CONTINUE TO MONITOR (7) Anxiety Status: Chronic Plan: CONTINUE VALIUM, CONTINUE TO MONITOR
== END 2017-03-24 12:30 | disposition home or self-care (01) | DRG 195 ==
LOC: MED/SURG 10:05 → UNDOADMIN 10:05 → MED/SURG 11:44
PROVIDERS: ADMIT Internal Medicine; ATTEND Internal Medicine
DX: J18.0 Bronchopneumonia, unspecified organism (principal); E11.65 Type 2 diabetes mellitus with hyperglycemia; E78.2 Mixed hyperlipidemia; R06.02 Shortness of breath; Z79.4 Long term (current) use of insulin; D50.9 Iron deficiency anemia, unspecified; E11.43 Type 2 diabetes mellitus with diabetic autonomic (poly)neuropathy; F41.8 Other specified anxiety disorders; Z85.118 Personal history of other malignant neoplasm of bronchus and lung
CPT/HCPCS: 36415; 71045; 71046; 71260; 80053; 85025; 87040; 87070; 87205; 94640; 94760; A4222; P9047; J0713; J1815; J1956; J7620; J7626

== ENCOUNTER → 2017-06-29 | Outpatient (CLI) | payer OTHER ==
[~2017-06-29] MED LIST: NS 100 ML IV 100 ML IV ONE
[2017-06-29 09:50] LABS: CREATININE 0.96 mg/dL (0.70-1.30)
--- NOTE | 2017-06-29 12:09 | CT ---
History: Increasing shortness of breath, history of left upper lobe cancer Study: CT chest with contrast Findings: [address] imaging through the chest is performed during the intravenous administratio n 100 mL of Omnipaque 350. Coronal and sagittal reformatted images are submitted as well. Comparison is made to a previous study of 03/23/2017. Myrtle artifacts from a right humeral head prosthesis is ag ain noted. The right subclavian Port-A-Cath remains in place. Consolidated lung within the left mid l trevor field is again noted and unchanged. Loss of left lung volume with elevation left hemidiaphragm is again noted. There has been decrease in size of a loculated left pleural effusion in the posterior i nferior aspect of the left catracho thorax. The right lung remains clear. Imaging through the upper abdom en demonstrates absence of the gallbladder. There are advanced spondylitic changes of the thoracic sp ine with resultant ankylosis as before. No lytic or sclerotic lesions are demonstrated. Impression: Chronic consolidation within the left upper lobe with loss of lung volume and elevation l eft hemidiaphragm is again noted. Decrease in size of a loculated left pleural effusion. Small to moderate-sized pericardial effusion is now demonstrated measuring almost 2 cm in maximal thi ckness. Previous cholecystectomy. Reported By:
== END | disposition home or self-care (01) ==
LOC: RAD 09:00
PROVIDERS: ATTEND Internal Medicine
DX: J44.9 Chronic obstructive pulmonary disease, unspecified (principal); C34.90 Malignant neoplasm of unspecified part of unspecified bronchus or lung; I31.3 Pericardial effusion (noninflammatory); R06.02 Shortness of breath; J98.4 Other disorders of lung
CPT/HCPCS: 36415; 71260; 82565; 84520; A4222

== ENCOUNTER 2018-04-23 17:20 | Inpatient (IN) ==
--- NOTE | 2018-04-23 18:03 | RAD ---
History: Shortness of breath Exam: Portable chest Comparison: 03/23/2017 Technique: Multiple grayscale and color flow Doppler images of the pelvis were obtained. Findings: The heart is mildly enlarged but unchanged. The pulmonary vessels are less prominent centrally . There is a right Port-A-Cath in place which is unchanged. There is volume loss throughout the left hemithorax with hazy and irregular left hilar fullness with perihilar opacity extending laterally and inferiorly which is less prominent . There is minimal blunting of left costophrenic sulcus which is less prominent. IMPRESSION: Left hilar fullness which is less prominent with hazy left perihilar and lower lobe opacities which have decreased. Recommend follow-up. Questionable tiny left pleural effusion which is less prominent. Stable mild cardiomegaly with resolving central pulmonary congestion. No change in the right Port-A-Cath. Reported By:
--- NOTE | 2018-04-23 18:04 | DR.GENAD ---
HPI Time Seen Time Seen by Provider: 04/23/18 17:56 PCP Primary Care Physician: syeda Complaint/Symptoms Chief Complaint Doctors Comments: Patient presents to the ED with complaint of severe shortness of breath. He has COPD on four liters; denies cigarettes. Shortness of breath onset this AM. He denies productive cough or fever. Chief Complaint:: pt stated he has been having speels of shortness of breath and light headed since thi morning Source History Provided: Patient Mode of Arrival Mode of Arrival: Ambulatory Timing Onset of Chief Complaint: 04/23/18 PMH PMH Past Medical History: Yes Past Medical History: COPD, Diabetes and Kidney Stones Past Surgical History: Yes Surgical History: Cholecystectomy, Ortho Surgery and Other Family History History of Family Medical Conditions: No Social History Does patient currently use any type of tobacco product: No Have you used tobacco products in the last 12 months: No Type of Tobacco Use: None Does any household member use tobacco: No Alcohol Use: None Do you use any recreational Drugs:: No Lives With: Family Lives Where: Home infectious screening In the last 2 months have you had wt loss of >10#?: NO Have you had fever, night sweats or hemotysis?: No Have you traveled outside the country in the last 6 months?: No Isolation: Standard PE Vital Signs Vitals: Temperature 98.1 F Pulse Rate [Left] 111 Pulse Rate 103 Respiratory Rate 20 Blood Pressure [Left Arm] 125/93 Blood Pressure [Right Arm] 185/95 Blood Pressure 123/71 O2 Sat by Pulse Oximetry 98 COURSE Consultation Called: 20:00 Consultation Comments: Dr. Baltazar agreed to admit for further evaluation and treatment ROR Labs Reviewed Laboratory Results Reviewed?: Yes Result Diagrams: 04/23/18 18:22 04/23/18 19:00 Laboratory: WBC 6.8 X10^3/uL (3.6-10.0) 04/23/18 18: RBC 2.16 X10^6/uL (4.7-6.0) L 04/23/18 18:22 Hgb 6.6 g/dL (13.5-18.0) L* 04/23/18 18: Hct 19.4 % (42.0-54.0) L* 04/23/18 18: MCV 89.9 fL (80.0-100.0) 04/23/18 18:22 MCH 30.6 pg (27.0-34.0) 04/23/18 18: MCHC 34.0 g/dL (33.0-35.0) 04/23/18 18: RDW 16.9 % (11.6-16.5) H 04/23/18 18: Plt Count 133 X10^3/uL (150.0-450.0) L 04/23/18 18: Plt Count Comment Adequate (ADEQUATE) 04/23/18: MPV 7.4 fL (7.4-11.0) 04/23/18 18: Neut % (Auto) 81.3 % (42.0-75.0) H 04/23/18 18: Lymph % (Auto) 8.0 % (21.0-51.0) L 04/23/18 18: [place] % (Auto) 8.8 % (0.0-13.0) 04/23/18 18: Eos % (Auto) 0.7 % (0.9-2.9) L 04/23/18 18: Baso % (Auto) 1.2 % (0.2-1.0) H 04/23/18 18: Neut # (Auto) 5.5 x10^3/uL (2.2-4.8) H 04/23/18 18:22 Lymph # (Auto) 0.5 X10^3/uL (1.3-2.9) L 04/23/18 18: [place] # (Auto) 0.6 x10^3/uL (0.3-0.8) 04/23/18 18: Eos # (Auto) 0.0 x10^3/uL (0.0-0.2) 04/23/18 18: Baso # (Auto) 0.1 X10^3/uL (0.0-0.1) 04/23/18 18: Absolute Nucleated RBC 0.1 /100WBC 04/23/18 18: Plt Morphology Comment Normal (NORMAL) 04/23/18 18: RBC Morphology Abnormal (NORMAL) 04/23/18 18: Hypochromasia 1+ A 04/23/18 18:22 Anisocytosis 1+ A 04/23/18 18:22 D-Dimer 655 ng/mL (0-400) H* 04/23/18 19:00 Sodium 141 mmol/L (136-145) 04/23/18 19:00 Corrected Sodium 142 mmol/L (136-145) 04/23/18 19:00 Potassium 4.8 mmol/L (3.5-5.1) 04/23/18 19:00 Chloride 107 mmol/L (98-107) 04/23/18 19:00 Carbon Dioxide 26.8 mmol/L (21-32) 04/23/18 19:00 BUN 75 mg/dL (7-18) H 04/23/18 19:00 Creatinine 1.07 mg/dL (0.70-1.30) 04/23/18 19:00 Est GFR (MDRD) Af Amer > 60 (>60) 04/23/18 19:00 Est GFR (MDRD) Non-Af > 60 (>60) 04/23/18 19:00 Glucose 143 mg/dL (65-99) H 04/23/18 19:00 Calcium 9.5 mg/dL (8.5-10.1) 04/23/18 19:00 Corrected Calcium 10.5 mg/dL (8.5-10.1) H 04/23/18 19:00 Total Bilirubin 0.30 mg/dL (0.2-1.0) 04/23/18 19:00 AST 18 Units/L (15-37) 04/23/18 19:00 ALT 21 Units/L (12-78) 04/23/18 19:00 Alkaline Phosphatase 99 Units/L (46-116) 04/23/18 19:00 B-Natriuretic Peptide 131 pg/mL (0-79) H 04/23/18 19:00 Total Protein 5.6 g/dL (6.4-8.2) L 04/23/18 19:00 Albumin 2.7 g/dL (3.4-5.0) L 04/23/18 19:00 Globulin 2.9 g/dL (2.5-4.5) 04/23/18 19:00 Albumin/Globulin Ratio 0.9 Ratio (1.1-2.1) L 04/23/18 19:00 Specimen Type Catherized urine 04/23/18 Urine Color Pale yellow (YELLOW) 04/23/18 Urine Appearance Clear (CLEAR) 04/23/18 Urine pH 6.0 (5.0 - 8.0) 04/23/18 Ur Specific [place] 1.005 (1.000-1.030) 04/23/18: Urine Protein 2+ (NEGATIVE) 04/23/18 Urine Glucose (UA) Negative (NEGATIVE) 04/23/18 Urine Ketones Negative (NEGATIVE) 04/23/18 Urine Occult Blood 1+ (NEGATIVE) 04/23/18 Urine Nitrite Negative (NEGATIVE) 04/23/18 Urine Bilirubin Negative (NEGATIVE) 04/23/18 Urine Urobilinogen Normal (NORMAL) 04/23/18 Ur Leukocyte Esterase 1+ (NEGATIVE) 04/23/18 Urine RBC 3-5 /HPF (NONE SEEN) 04/23/18 Urine WBC 3-5 /HPF (NONE SEEN) 04/23/18 Ur Squamous Epith Cells Rare /HPF (NEGATIVE) 04/23/18 Urine Bacteria Negative /HPF (NEGATIVE) 04/23/18 Hyaline Casts Few /LPF (NEGATIVE) 04/23/18 Ur Culture Indicated? No/not indicated 04/23/18 Blood Type O NEGATIVE 04/23/18 19:00 Antibody Screen Negative 04/23/18 19:00 Crossmatch See Detail 04/23/18 19:00 Other Results Comments: Chest compared to 03/23/17: The heart is mildly enlarged but unchanged. The pulmonary vessels are less prominent centrally. There is a right Port-A-Cath in place which is unchanged. There is volume loss throughout the left hemothorax with hazy and irregular left hilar fullness with perihilar opacity extending laterally and inferiorly which is less prominent. There is minimal blunting of left costophrenic sulcus which is less prominent. Impression: left hilar fullness which is less prominent with lazy left perihilar and lower lobe opacities which have decreased. Questionable tiny left pleural effusion which is less prominent. Stable mild cardiomegaly with resolving central pulmonary congnestion. No change in the right Port-A-Cath. 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 Moderate sized pericardial effusion and coronary atherosclerotic disease. Stable right infrahilar lymph node . Suboptimal contrast bolus timing. No large central pulmonary embolus identified however cannot evaluate segmental and subsegmental branches. XRAY XRAY Interpreted by: Radiologist Diagnosis Discharge Problem: Severe anemia, Dehydration, Elevated d-dimer COPD (chronic obstructive pulmonary disease) Qualifiers: COPD type: unspecified COPD Qualified Code(s): J44.9 - Chronic obstructive pulmonary disease, unspecified
[2018-04-23 18:53] LABS: ALANINE AMINOTRANSFERASE 21 Units/L (12-78); ALBUMIN 2.7 g/dL (3.4-5.0); ALKALINE PHOSPHATASE 99 Units/L (46-116); ASPARTATE AMINO TRANSFERASE 18 Units/L (15-37); BLOOD UREA NITROGEN 75 mg/dL (7-18); CALCIUM 9.5 mg/dL (8.5-10.1); CARBON DIOXIDE 26.8 mmol/L (21-32); CHLORIDE 107 mmol/L (98-107); COR CA(FOR HYPOALB) 10.5 mg/dL (8.5-10.1); COR NA(FOR HYPERGLY) 142 mmol/L (136-145); CREATININE 1.07 mg/dL (0.70-1.30); SODIUM 141 mmol/L (136-145); TOTAL PROTEIN 5.6 g/dL (6.4-8.2); eGFR NON BLACK RACES > 60 (>60)
[2018-04-23 18:57] LABS: B-TYPE NATRIURETIC PEPTIDE 131 pg/mL (0-79)
[2018-04-23 19:29] LABS: BASOPHILS # (AUTO) 0.1 X10^3/uL (0.0-0.1); BASOPHILS % (AUTO) 1.2 % (0.2-1.0); EOSINOPHILS % (AUTO) 0.7 % (0.9-2.9); LYMPHOCYTES # (AUTO) 0.5 X10^3/uL (1.3-2.9); MEAN CORPUSCULAR HEMOGLOBIN 30.6 pg (27.0-34.0); MEAN CORPUSCULAR VOLUME 89.9 fL (80.0-100.0); MEAN PLATELET VOLUME 7.4 fL (7.4-11.0); MONOCYTES # (AUTO) 0.6 x10^3/uL (0.3-0.8); MONOCYTES % (AUTO) 8.8 % (0.0-13.0); NEUTROPHILS # (AUTO) 5.5 x10^3/uL (2.2-4.8); NEUTROPHILS % (AUTO) 81.3 % (42.0-75.0); PLATELET COUNT 133 X10^3/uL (150.0-450.0); RED BLOOD COUNT 2.16 X10^6/uL (4.7-6.0); RED CELL DISTRIBUTION WIDTH 16.9 % (11.6-16.5); WHITE BLOOD COUNT 6.8 X10^3/uL (3.6-10.0)
[2018-04-23 19:32] LABS: HEMOGLOBIN 6.6 g/dL (13.5-18.0)
[2018-04-23 19:33] LABS: HEMATOCRIT 19.4 % (42.0-54.0)
[2018-04-23 19:34] LABS: ANISOCYTOSIS 1+; HYPOCHROMASIA 1+; PLATELET MORPHOLOGY COMMENT NORMAL (NORMAL)
[2018-04-23] MEDS ORDERED: NS 100 ML IV 100 ML ONE (20:48)
--- NOTE | 2018-04-23 21:36 | CT ---
HISTORY: Shortness of breath, lightheaded, history of left upper lobe cancer Study: CTA chest Comparison: 06/29/2017 Technique: Multiple axial images of the chest were obtained after the administration of IV contrast. 3D reconstructions were performed utilizing radial maximum intensity projection imaging. Dose reduction techniques including Automated Exposure Control (AEC) and adjustment of mA and kV were utilized. Findings: Contrast bolus timing is suboptimal. No large central pulmonary embolus is identified however cannot evaluate segmental and subsegmental branches. There are chronic post treatment changes in the left upper lobe with volume loss and consolidation that may be related to post radiation changes. Overall this has a stable appearance from prior exam. There is a moderate-sized pericardial effusion. Aorta is normal in caliber. There is callus fluid plaque in the coronary arteries. Right lung is clear. There is a stable right infrahilar lymph node measuring 2.9 x 1.8 cm. No new mass or adenopathy is identified. There are advanced degenerative changes of the bony thorax with severe degenerative changes of the spine without evidence of aggressive osseous lesion or pathologic fracture. Gallbladder is removed. There is a right chest wall port in place. IMPRESSION: 1. 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 2. Moderate-sized pericardial effusion and coronary atherosclerotic disease. 3. Stable right infrahilar lymph node as described. 4. Suboptimal contrast bolus timing. No large central pulmonary embolus identified however cannot evaluate segmental and subsegmental branches. Reported By:
[2018-04-23 22:40] LABS: BILIRUBIN,URINE NEGATIVE (NEGATIVE); BLOOD/HEMOGLOBIN,URINE 1+ (NEGATIVE); GLUCOSE, URINE NEGATIVE (NEGATIVE); KETONES,URINE NEGATIVE (NEGATIVE); LEUKOCYTE ESTERASE ,URINE 1+ (NEGATIVE); NITRITES,URINE NEGATIVE (NEGATIVE); PROTEIN,URINE 2+ (NEGATIVE); UROBILINOGEN,URINE NORMAL (NORMAL)
[2018-04-23] MEDS ORDERED: TYLENOL 325 MG TAB PO ONE ×2 (22:51→22:53)
[2018-04-23] MEDS ORDERED: BENADRYL INJ 50 MG VIAL IVP ONE (22:51)
[2018-04-23 22:52] LABS: APPEARANCE,URINE CLEAR (CLEAR); BACTERIA,URINE NEGATIVE /HPF (NEGATIVE); COLOR,URINE PALE YELLOW (YELLOW); HYALINE CASTS, URINE FEW /LPF (NEGATIVE); SQUAMOUS EPITHELIAL CELL,UR RARE /HPF (NEGATIVE)
[2018-04-23] MEDS ORDERED: BENADRYL INJ 50 MG VIAL ONE (22:53)
[2018-04-23] MEDS ORDERED: PATIENT'S HOME MEDICATION (Albuterol Sulfate [Proair Hfa] 2 PUFF) INH PRN (23:21)
[2018-04-24] MEDS ORDERED: NS 250 ML IV 250 ML ONE (00:06)
[2018-04-24] MEDS ORDERED: NS 500 ML IV 500 ML ONE ×2 (00:15→13:28)
[2018-04-24] MEDS: ATIVAN TAB 0.5 MG PO PRN ×2 (01:21→22:38)
[2018-04-24] MEDS ORDERED: VISTARIL PO ONE (04:33)
[2018-04-24] MEDS: VISTARIL PO PRN (04:37)
[2018-04-24] MEDS: NS 1000 ML 1,000 ML IV SCH ×2 (04:48→13:32)
[2018-04-24] MEDS: DUONEB 0.5 MG/3 MG NEB SCH ×5 (05:00→20:30)
[2018-04-24 05:34] LABS: ALANINE AMINOTRANSFERASE 21 Units/L (12-78); ALBUMIN 2.6 g/dL (3.4-5.0); ALKALINE PHOSPHATASE 82 Units/L (46-116); ASPARTATE AMINO TRANSFERASE 16 Units/L (15-37); BLOOD UREA NITROGEN 86 mg/dL (7-18); CALCIUM 8.9 mg/dL (8.5-10.1); CHLORIDE 106 mmol/L (98-107); COR NA(FOR HYPERGLY) 142 mmol/L (136-145); CREATININE 1.07 mg/dL (0.70-1.30); SODIUM 140 mmol/L (136-145); TOTAL PROTEIN 5.2 g/dL (6.4-8.2); eGFR NON BLACK RACES > 60 (>60)
[2018-04-24] MEDS ORDERED: GLUCOPHAGE ONE ×2 (06:17→17:06)
[2018-04-24] MEDS: GLUCOPHAGE PO SCH ×2 (06:26→17:17)
[2018-04-24] MEDS: TESSALON PERLES PO SCH ×3 (06:26→21:06)
[2018-04-24 08:26] LABS: STOOL FOR WBC NEGATIVE (NEGATIVE)
[2018-04-24] MEDS: MUCINEX EXPECTORANT PO SCH ×2 (08:26→21:06)
[2018-04-24] MEDS: LYRICA CAP 50 MG PO SCH ×2 (08:26→21:07)
[2018-04-24] MEDS: ACCUPRIL PO SCH (08:26)
[2018-04-24 08:48] VITALS: BMI 37.1
[2018-04-24] MEDS ORDERED: TIOTROPIUM BROMIDE INH SCH (09:00)
[2018-04-24 09:35] LABS: BASOPHILS # (AUTO) 0.1 X10^3/uL (0.0-0.1); BASOPHILS % (AUTO) 1.3 % (0.2-1.0); EOSINOPHILS # (AUTO) 0.1 x10^3/uL (0.0-0.2); EOSINOPHILS % (AUTO) 1.1 % (0.9-2.9); LYMPHOCYTES # (AUTO) 0.5 X10^3/uL (1.3-2.9); LYMPHOCYTES % (AUTO) 8.3 % (21.0-51.0); MEAN CORPUSCULAR HEMOGLOBIN 31.3 pg (27.0-34.0); MEAN CORPUSCULAR HGB CONC 34.2 g/dL (33.0-35.0); MEAN CORPUSCULAR VOLUME 91.5 fL (80.0-100.0); MEAN PLATELET VOLUME 7.8 fL (7.4-11.0); MONOCYTES # (AUTO) 0.6 x10^3/uL (0.3-0.8); MONOCYTES % (AUTO) 10.8 % (0.0-13.0); NEUTROPHILS # (AUTO) 4.6 x10^3/uL (2.2-4.8); NEUTROPHILS % (AUTO) 78.5 % (42.0-75.0); PLATELET COUNT 109 X10^3/uL (150.0-450.0); RED BLOOD COUNT 2.15 X10^6/uL (4.7-6.0); RED CELL DISTRIBUTION WIDTH 16.5 % (11.6-16.5); WHITE BLOOD COUNT 5.9 X10^3/uL (3.6-10.0)
[2018-04-24 09:38] LABS: HEMATOCRIT 19.7 % (42.0-54.0); HEMOGLOBIN 6.7 g/dL (13.5-18.0)
[2018-04-24] MEDS ORDERED: VALIUM INJ IVP PRN (09:54)
[2018-04-24] MEDS ORDERED: ROBITUSSIN DM ONE (10:00)
[2018-04-24] MEDS ORDERED: VALIUM ONE (10:02)
[2018-04-24] MEDS: ROBITUSSIN DM PO PRN (10:07)
[2018-04-24] MEDS: VALIUM PO PRN ×2 (10:07→21:07)
[2018-04-24] MEDS ORDERED: LASIX IVP ONE (10:55)
[2018-04-24] MEDS: PROVENTIL NEB TX 0.083% 2.5MG/ 3ML NEB PRN ×3 (12:13→16:50)
--- NOTE | 2018-04-24 12:30 | DR.H&P ---
H&P - History & Physical for Day of: H&P Date: 04/23/18 - Chief Complaint Chief Complaint: SOB, WEAKNESS - History of Present Illness History of Present Illness: 72WM ER ADMISSION WITH CO severe shortness of breath. He has COPD on four liters O2 at home; denies cigarettes. Shortness of breath onset this AM. He denies productive cough or fever. PT HAS PMH OF "CHF" DENIES ANY BYPASS OR STENT PLACEMENT. PT HAS HX OF LUNG CA, STATES HE IS IN REMISSION, UNDER THE CARE OF DR DE SOUZA. PT DENIES HX OF ANEMIA, HGB 6.6 IN ER. PT HAD CTA OF CHEST. PT ADMITTED FOR TREATMENT OF SYMPTOMATIC ANEMIA, RESP DISTRESS. - Past Medical History Past Medical History: Anxiety, Arthritis, COPD, Diabetes, GERD, Hypertension, Kidney Stones Additional Medical History: HX LUNG CANCER - Past Surgical History Surgical History: Cholecystectomy, Ortho Surgery, Other - Family History Family Medical History: Hypertension - Social History Does patient currently use any type of tobacco product: No Have you used tobacco products in the last 12 months: No Type of Tobacco Use: None Does any household member use tobacco: No Alcohol Use: None Drug Use: None - Medications Home Medications: No Known Drug Allergies Allergy (Verified 04/23/18 17:31) CONTINUE taking the following medications cholecalciferol (vitamin D3) 5,000 unit PO DAILY 04/23/18 [History] [id number] [Trelegy Ellipta] 1 inh INHALATION QDAY 04/23/18 [History] folic acid 1 mg PO BID 04/23/18 [History] furosemide 40 mg PO BID 04/23/18 [History] glycopyrrolate-formoterol [Bevespi Aerosphere] 2 inh INHALATION BID 04/23/18 [History] iron-folic acid-mv, min cmb#15 [Hemocyte-Plus] 1 cap PO DAILY 04/23/18 [History] magnesium oxide 250 mg PO BID 04/23/18 [History] - Review of Systems Constitutional: Weakness Eyes: No Symptoms Reported ENT: No Symptoms Reported Respiratory: Shortness of Breath, SOB with Excertion Cardiovascular: Edema, Light Headedness Gastrointestinal: Nausea Genitourinary: No Symptoms Reported Musculoskeletal: Back Pain Skin: No Symptoms Reported Neurological: Weakness - Physical Exam Vital Signs: Temperature 97.6 F Pulse Rate [Left] 93 Pulse Rate 101 Respiratory Rate 20 Blood Pressure [Left Arm] 125/93 Blood Pressure [Right Arm] 126/79 Blood Pressure 123/71 O2 Sat by Pulse Oximetry 98 Oriented: Normal Eyes: Normal Ear: Normal Nose: Normal Throat: Normal Respiratory: Diminished Throughout Cardiovascular: Tachycardia, Edema : Normal Auscultation: Bowel Sounds: Normal Palpation: Normal Tenderness: Normal Skin: Decreased Turgur Musculoskeletal: Back:Lumbar Psychiatric: Anxiety Affect: Anxious Speech Pattern: Clear, Appropriate, Excessive - Assessment/Plan (1) Severe anemia Status: Acute Plan: ADMIT, TRANSFUSE PRBC. ANEMIA PANEL, OCCULT STOOL. BP AND CARDIAC MONITORING. CTA CHEST IN ER ON ADMISSION. UA, CBC CMP. VERIFY HOME MEDICATION, RESP CONSULT (2) Respiratory distress Status: Acute (3) Hx of cancer of lung Status: Acute (4) Diabetes Qualifiers: Diabetes mellitus type: type 2 Diabetes mellitus edger machine operator insulin use: with edger machine operator use Diabetes mellitus complication status: without complication Qualified Code(s): E11.9 - Type 2 diabetes mellitus without complications; Z79.4 - navy fighter pilot (current) use of insulin; Z79.4 - prison (current) use of insulin; Z79.4 - prison (current) use of insulin; Z79.4 - navy fighter pilot (current) use of insulin Status: Chronic (5) Elevated d-dimer Status: Acute (6) COPD (chronic obstructive pulmonary disease) Qualifiers: COPD type: unspecified COPD Qualified Code(s): J44.9 - Chronic obstructive pulmonary disease, unspecified Status: Acute - Allergies Allergies/Adverse Reactions: Allergies Allergy/AdvReac Type Severity Reaction Status Date / Time No Known Drug Allergies Allergy Verified 04/23/18 17:31
--- NOTE | 2018-04-24 12:37 | PCM.PROG ---
Progress Note - Progress Note for Day of Date of Exam: 04/24/18 - Subjective Subjective: 72 WM ER ADMISSION WITH SOB, SYMPTOMATIC ANEMIA. PT IS S/P TRANSFUSION 2 UNITS PRBC. PT HGB ON ADMISSION 6.6, 6.7 THIS AM. PT CONTINUES WITH SOB, DIMINISHED LUNGS SOUNDS. PT CURRENTLY ON SUPPLEMENTAL O2. ABG ORDERED. RESP THERAPY, LASIX IV, INFUSE 3RD UNIT PRBC. OCCULT STOOL NEGATIVE. CONTINUE BP AND BS CONTROL - Past Medical Family Social History Past Med/Fam/Surg Hx: No changes since H&P Allergies: Allergies No Known Drug Allergies Allergy (Verified 04/23/18 17:31) - Review of Systems ROS: No change since H&P - Vital Signs and I&O's Vital Signs: Temperature 97.6 F Pulse Rate [Left] 93 Pulse Rate 101 Respiratory Rate 20 Blood Pressure [Left Arm] 125/93 Blood Pressure [Right Arm] 126/79 Blood Pressure 123/71 O2 Sat by Pulse Oximetry 98 Intake and Output: Intake & Output 04/22/18 04/23/18 04/24/18 04/25/18 11:59 11:59 11:59 11:59 Intake Total 354 / 354 Output Total 1000 / 1000 Balance -646 / -646 - Physical Exam Oriented: Normal Eyes: Normal Ear: Normal Nose: Normal Throat: Normal Respiratory: Diminished Cardiovascular: Tachycardia, Edema : Normal Auscultation: Bowel Sounds: Normal Tenderness: Normal Skin: Decreased Turgur Musculoskeletal: Back:Lumbar Psychiatric: Anxiety Affect: Anxious Speech Pattern: Clear, Appropriate, Excessive - Laboratory and Diagnostics Result Diagrams: 04/24/18 09:10 04/24/18 04:52 Labs: 04/24/18 11:40 Sputum - Expectorated Sputum - Final 04/24/18 07:42 Stool - Final Laboratory WBC 5.9 X10^3/uL (3.6-10.0) 04/24/18 09:10 RBC 2.15 X10^6/uL (4.7-6.0) L 04/24/18 09:10 Hgb 6.7 g/dL (13.5-18.0) L* 04/24/18 09:10 Hct 19.7 % (42.0-54.0) L* 04/24/18 09:10 MCV 91.5 fL (80.0-100.0) 04/24/18 09:10 MCH 31.3 pg (27.0-34.0) 04/24/18 09:10 MCHC 34.2 g/dL (33.0-35.0) 04/24/18 09:10 RDW 16.5 % (11.6-16.5) 04/24/18 09:10 Plt Count 109 X10^3/uL (150.0-450.0) L 04/24/18 09:10 Plt Count Comment Adequate (ADEQUATE) 04/23/18 18:22 MPV 7.8 fL (7.4-11.0) 04/24/18 09:10 Neut % (Auto) 78.5 % (42.0-75.0) H 04/24/18 09:10 Lymph % (Auto) 8.3 % (21.0-51.0) L 04/24/18 09:10 [place] % (Auto) 10.8 % (0.0-13.0) 04/24/18 09:10 Eos % (Auto) 1.1 % (0.9-2.9) 04/24/18 09:10 Baso % (Auto) 1.3 % (0.2-1.0) H 04/24/18 09:10 Neut # (Auto) 4.6 x10^3/uL (2.2-4.8) 04/24/18 09:10 Lymph # (Auto) 0.5 X10^3/uL (1.3-2.9) L 04/24/18 09:10 [place] # (Auto) 0.6 x10^3/uL (0.3-0.8) 04/24/18 09:10 Eos # (Auto) 0.1 x10^3/uL (0.0-0.2) 04/24/18 09:10 Baso # (Auto) 0.1 X10^3/uL (0.0-0.1) 04/24/18 09:10 Absolute Nucleated RBC 0.1 /100WBC 04/24/18 09:10 Plt Morphology Comment Normal (NORMAL) 04/23/18 18:22 RBC Morphology Abnormal (NORMAL) 04/23/18 18:22 Hypochromasia 1+ A 04/23/18 18:22 Anisocytosis 1+ A 04/23/18 18:22 D-Dimer 655 ng/mL (0-400) H* 04/23/18 19:00 Sodium 140 mmol/L (136-145) 04/24/18 04:52 Corrected Sodium 142 mmol/L (136-145) 04/24/18 04:52 Potassium 4.6 mmol/L (3.5-5.1) 04/24/18 04:52 Chloride 106 mmol/L (98-107) 04/24/18 04:52 Carbon Dioxide 26.0 mmol/L (21-32) 04/24/18 04:52 BUN 86 mg/dL (7-18) H 04/24/18 04:52 Creatinine 1.07 mg/dL (0.70-1.30) 04/24/18 04:52 Est GFR (MDRD) Af Amer > 60 (>60) 04/24/18 04:52 Est GFR (MDRD) Non-Af > 60 (>60) 04/24/18 04:52 Glucose 188 mg/dL (65-99) H 04/24/18 04:52 POC Glucose (mg/dL) 169 mg/dL (65-99) H 04/24/18 12:02 Calcium 8.9 mg/dL (8.5-10.1) 04/24/18 04:52 Corrected Calcium 10.0 mg/dL (8.5-10.1) 04/24/18 04:52 Total Bilirubin 0.70 mg/dL (0.2-1.0) 04/24/18 04:52 AST 16 Units/L (15-37) 04/24/18 04:52 ALT 21 Units/L (12-78) 04/24/18 04:52 Alkaline Phosphatase 82 Units/L (46-116) 04/24/18 04:52 B-Natriuretic Peptide 131 pg/mL (0-79) H 04/23/18 19:00 Total Protein 5.2 g/dL (6.4-8.2) L 04/24/18 04:52 Albumin 2.6 g/dL (3.4-5.0) L 04/24/18 04:52 Globulin 2.6 g/dL (2.5-4.5) 04/24/18 04:52 Albumin/Globulin Ratio 1.0 Ratio (1.1-2.1) L 04/24/18 04:52 Specimen Type Catherized urine 04/23/18 22: Urine Color Pale yellow (YELLOW) 04/23/18 22: Urine Appearance Clear (CLEAR) 04/23/18 22: Urine pH 6.0 (5.0 - 8.0) 04/23/18 22: Ur Specific [place] 1.005 (1.000-1.030) 04/23/18 22: Urine Protein 2+ (NEGATIVE) 04/23/18 22: Urine Glucose (UA) Negative (NEGATIVE) 04/23/18: Urine Ketones Negative (NEGATIVE) 04/23/18: Urine Occult Blood 1+ (NEGATIVE) 04/23/18: Urine Nitrite Negative (NEGATIVE) 04/23/18: Urine Bilirubin Negative (NEGATIVE) 04/23/18: Urine Urobilinogen Normal (NORMAL) 04/23/18 22: Ur Leukocyte Esterase 1+ (NEGATIVE) 04/23/18 22: Urine RBC 3-5 /HPF (NONE SEEN) 04/23/18 22: Urine WBC 3-5 /HPF (NONE SEEN) 04/23/18 22: Ur Squamous Epith Cells Rare /HPF (NEGATIVE) 04/23/18: Urine Bacteria Negative /HPF (NEGATIVE) 04/23/18: Hyaline Casts Few /LPF (NEGATIVE) 04/23/18 22: Ur Culture Indicated? No/not indicated 04/23/18 22: Stool Description See comment 04/24/18 07:42 Stl Occult Blood (IFOB) Negative (NEGATIVE) 04/24/18 07:42 Stool for White Cells Negative (NEGATIVE) 04/24/18 07:42 Blood Type O NEGATIVE 04/23/18 19:00 Antibody Screen Negative 04/23/18 19:00 Crossmatch See Detail 04/23/18 19:00 - Plan (1) Severe anemia Status: Acute Plan: TRANSFUSE PRBC. ANEMIA PANEL, OCCULT STOOL. BP AND CARDIAC MONITORING. CTA CHEST IN ER ON ADMISSION, IV LASIX, STRICT I & OS, MENA CATH CARE, CE AND EKG. UA, CBC CMP. VERIFY HOME MEDICATION, RESP CONSULT (2) Respiratory distress Status: Acute (3) Hx of cancer of lung Status: Acute (4) Diabetes Status: Chronic Qualifiers: Diabetes mellitus type: type 2 Diabetes mellitus fci insulin use: with moth exterminator use Diabetes mellitus complication status: without complication Qualified Code(s): E11.9 - Type 2 diabetes mellitus without complications; Z79.4 - retirement (current) use of insulin; Z79.4 - termite renewal inspector (current) use of insulin; Z79.4 - retirement (current) use of insulin; Z79.4 - termite renewal inspector (current) use of insulin (5) Elevated d-dimer Status: Acute (6) COPD (chronic obstructive pulmonary disease) Status: Acute Qualifiers: COPD type: unspecified COPD Qualified Code(s): J44.9 - Chronic obstructive pulmonary disease, unspecified
[2018-04-24 13:08] LABS: ABG ALLEN TEST POS; ABG BASE EXCESS 3.1 mmol/L (-2.0-2.0)
[2018-04-24 17:35] LABS: HEMATOCRIT 22.2 % (42.0-54.0); HEMOGLOBIN 7.6 g/dL (13.5-18.0)
[2018-04-24] MEDS: SNACK - Diabetic Appropriate PO SCH (21:00)
[2018-04-24] MEDS: ZOCOR TAB 40 MG PO SCH (21:06)
[2018-04-24] MEDS: FLOMAX PO SCH (21:07)
[2018-04-24] MEDS: LASIX IVP SCH (21:07)
[2018-04-24] MEDS: LANTUS SC SCH (22:36)
[2018-04-25] MEDS: NS 1000 ML 1,000 ML IV SCH (01:10)
[2018-04-25] MEDS ORDERED: PHENERGAN INJ 25 MG IM PRN (01:55)
[2018-04-25] MEDS ORDERED: NORCO 5/325 MG TAB ONE (02:07)
[2018-04-25] MEDS: VISTARIL PO PRN (02:13)
[2018-04-25] MEDS: NORCO 5/325 MG TAB PO PRN ×2 (02:14→08:17)
[2018-04-25] MEDS: DUONEB 0.5 MG/3 MG NEB SCH ×4 (05:00→20:42)
[2018-04-25] MEDS ORDERED: GLUCOPHAGE ONE (05:32)
[2018-04-25] MEDS: TESSALON PERLES PO SCH ×3 (05:43→21:48)
[2018-04-25 05:58] LABS: BASOPHILS # (AUTO) 0.1 X10^3/uL (0.0-0.1); BASOPHILS % (AUTO) 1.2 % (0.2-1.0); EOSINOPHILS # (AUTO) 0.2 x10^3/uL (0.0-0.2); EOSINOPHILS % (AUTO) 3.4 % (0.9-2.9); LYMPHOCYTES # (AUTO) 0.4 X10^3/uL (1.3-2.9); LYMPHOCYTES % (AUTO) 8.8 % (21.0-51.0); MEAN CORPUSCULAR HEMOGLOBIN 32.2 pg (27.0-34.0); MEAN PLATELET VOLUME 7.9 fL (7.4-11.0); MONOCYTES # (AUTO) 0.4 x10^3/uL (0.3-0.8); MONOCYTES % (AUTO) 8.5 % (0.0-13.0); NEUTROPHILS # (AUTO) 3.7 x10^3/uL (2.2-4.8); NEUTROPHILS % (AUTO) 78.1 % (42.0-75.0); PLATELET COUNT 87 X10^3/uL (150.0-450.0); RED BLOOD COUNT 1.99 X10^6/uL (4.7-6.0); RED CELL DISTRIBUTION WIDTH 16.7 % (11.6-16.5); WHITE BLOOD COUNT 4.8 X10^3/uL (3.6-10.0)
[2018-04-25 06:09] LABS: ALANINE AMINOTRANSFERASE 24 Units/L (12-78); ALBUMIN 2.6 g/dL (3.4-5.0); ALKALINE PHOSPHATASE 73 Units/L (46-116); ASPARTATE AMINO TRANSFERASE 20 Units/L (15-37); BLOOD UREA NITROGEN 65 mg/dL (7-18); CALCIUM 9.2 mg/dL (8.5-10.1); CARBON DIOXIDE 29.4 mmol/L (21-32); CHLORIDE 111 mmol/L (98-107); COR CA(FOR HYPOALB) 10.3 mg/dL (8.5-10.1); COR NA(FOR HYPERGLY) 147 mmol/L (136-145); CREATININE 1.08 mg/dL (0.70-1.30); SODIUM 146 mmol/L (136-145); TOTAL PROTEIN 5.4 g/dL (6.4-8.2); eGFR NON BLACK RACES > 60 (>60)
[2018-04-25 06:15] LABS: HEMATOCRIT 18.3 % (42.0-54.0)
[2018-04-25 06:16] LABS: HEMOGLOBIN 6.4 g/dL (13.5-18.0)
[2018-04-25] MEDS: GLUCOPHAGE PO SCH ×2 (06:23→18:42)
[2018-04-25 06:31] LABS: IRON 36 ug/dL (50-175)
--- NOTE | 2018-04-25 07:41 | RAD ---
HISTORY: Shortness of breath and lightheaded Study: Single-view chest Comparison: 04/23/2018 Findings: The trachea is midline. The cardiac silhouette is stable as is a right-sided Port-A-Cath.. There is a stable left hilar fullness which is unchanged probable small effusion associated infiltrate left lung base. These findings appear similar to prior.. The bony thorax is unremarkable. IMPRESSION: 1. Stable left hilar fullness and left lower lobe infiltrate/effusion. Reported By:
[2018-04-25] MEDS: LYRICA CAP 50 MG PO SCH ×2 (08:16→21:48)
[2018-04-25] MEDS: ACCUPRIL PO SCH (08:16)
[2018-04-25] MEDS: MUCINEX EXPECTORANT PO SCH ×2 (08:17→21:48)
[2018-04-25] MEDS: LASIX IVP SCH ×2 (08:17→21:47)
[2018-04-25] MEDS: ROBITUSSIN DM PO PRN (08:33)
[2018-04-25] MEDS: VALIUM PO PRN (08:33)
[2018-04-25] MEDS ORDERED: BENADRYL INJ 50 MG VIAL IVP ONE (09:28)
[2018-04-25] MEDS ORDERED: NS 250 ML IV 250 ML IV ONE (09:30)
[2018-04-25] MEDS ORDERED: NS 250 ML IV 250 ML ONE (10:32)
[2018-04-25] MEDS ORDERED: BENADRYL INJ 50 MG VIAL ONE (10:32)
[2018-04-25] MEDS: PROTONIX INJ 40 MG VIAL IVP SCH ×2 (14:49→21:47)
[2018-04-25] MEDS: PROVENTIL NEB TX 0.083% 2.5MG/ 3ML NEB PRN (16:22)
--- NOTE | 2018-04-25 18:59 | CT ---
HISTORY: Abdominal distension and anemia. Study: CT abdomen and pelvis without contrast Comparison: CT abdomen and pelvis without contrast dated 10/09/2017 Technique: Multiple axial images of the abdomen and pelvis were obtained from the lung bases to the pubic symphysis without the administration of IV contrast. Oral contrast was administered Findings: A ventral wall abdominal hernia containing loop of small bowel is similar in appearance to prior examination. Oral contrast is able to traverse this area arguing against obstruction. Decompressed stomach is unremarkable. Liver, spleen, pancreas and adrenals are similar in appearance to prior examination. The appendix is normal. Small pericardial effusion is present. Small bibasilar pleural effusions are evident. Moderate to severe aortoiliac atherosclerotic disease is present. A Covarrubias catheter is present. No destructive osseous process is apparent. Prior postsurgical appearances the lumbosacral spine. IMPRESSION: Ventral wall abdominal hernia contains loop of small bowel with oral contrast traversing this segment arguing against an obstructive process. Stable ancillary findings as above. Small pericardial effusion. Small bibasilar pleural effusions. Reported By:
[2018-04-25] MEDS ORDERED: NS 1/2 1000 ML IV 1,000 ML ONE (21:44)
[2018-04-25] MEDS: ZOCOR TAB 40 MG PO SCH (21:48)
[2018-04-25] MEDS: FLOMAX PO SCH (21:48)
[2018-04-25] MEDS: SNACK - Diabetic Appropriate PO SCH (21:48)
[2018-04-25] MEDS: NS 1/2 1000 ML IV 1,000 ML IV SCH (21:48)
[2018-04-25] MEDS: LANTUS SC SCH (22:00)
[2018-04-25 23:29] LABS: HEMATOCRIT 23.6 % (42.0-54.0); HEMOGLOBIN 8.1 g/dL (13.5-18.0)
[2018-04-26] MEDS: NORCO 5/325 MG TAB PO PRN (02:59)
[2018-04-26] MEDS: VISTARIL PO PRN (02:59)
[2018-04-26] MEDS ORDERED: GLUCOPHAGE ONE (04:51)
[2018-04-26] MEDS: TESSALON PERLES PO SCH ×3 (05:45→21:29)
[2018-04-26] MEDS: GLUCOPHAGE PO SCH ×2 (06:02→19:17)
[2018-04-26 06:04] LABS: ALANINE AMINOTRANSFERASE 26 Units/L (12-78); ALBUMIN 2.6 g/dL (3.4-5.0); ALKALINE PHOSPHATASE 72 Units/L (46-116); ASPARTATE AMINO TRANSFERASE 20 Units/L (15-37); BLOOD UREA NITROGEN 50 mg/dL (7-18); CALCIUM 9.1 mg/dL (8.5-10.1); CARBON DIOXIDE 30.1 mmol/L (21-32); CHLORIDE 109 mmol/L (98-107); COR CA(FOR HYPOALB) 10.2 mg/dL (8.5-10.1); COR NA(FOR HYPERGLY) 145 mmol/L (136-145); CREATININE 1.07 mg/dL (0.70-1.30); SODIUM 145 mmol/L (136-145); TOTAL PROTEIN 5.5 g/dL (6.4-8.2); eGFR NON BLACK RACES > 60 (>60)
[2018-04-26 06:09] LABS: BASOPHILS # (AUTO) 0.1 X10^3/uL (0.0-0.1); BASOPHILS % (AUTO) 1.2 % (0.2-1.0); EOSINOPHILS # (AUTO) 0.2 x10^3/uL (0.0-0.2); EOSINOPHILS % (AUTO) 3.3 % (0.9-2.9); HEMATOCRIT 22.3 % (42.0-54.0); HEMOGLOBIN 7.7 g/dL (13.5-18.0); LYMPHOCYTES # (AUTO) 0.4 X10^3/uL (1.3-2.9); LYMPHOCYTES % (AUTO) 8.1 % (21.0-51.0); MEAN CORPUSCULAR HEMOGLOBIN 31.9 pg (27.0-34.0); MEAN CORPUSCULAR HGB CONC 34.4 g/dL (33.0-35.0); MEAN CORPUSCULAR VOLUME 92.8 fL (80.0-100.0); MEAN PLATELET VOLUME 8.1 fL (7.4-11.0); MONOCYTES # (AUTO) 0.4 x10^3/uL (0.3-0.8); MONOCYTES % (AUTO) 8.3 % (0.0-13.0); NEUTROPHILS # (AUTO) 3.9 x10^3/uL (2.2-4.8); NEUTROPHILS % (AUTO) 79.1 % (42.0-75.0); PLATELET COUNT 82 X10^3/uL (150.0-450.0); RED CELL DISTRIBUTION WIDTH 16.1 % (11.6-16.5); WHITE BLOOD COUNT 4.9 X10^3/uL (3.6-10.0)
[2018-04-26] MEDS: DUONEB 0.5 MG/3 MG NEB SCH ×3 (06:20→20:16)
[2018-04-26 07:00] LABS: HYPOCHROMASIA SLIGHT; PLATELET MORPHOLOGY COMMENT NORMAL (NORMAL)
[2018-04-26] MEDS ORDERED: PEPCID 20 MG IV PREMIX* 20 MG/50 ML BAG ONE (08:20)
[2018-04-26] MEDS ORDERED: PATIENT'S HOME MEDICATION (Fluticasone-Umeclidin-Vilanter [Trelegy Ellipta] 1 INH) IN SCH (08:30)
[2018-04-26] MEDS: MUCINEX EXPECTORANT PO SCH ×2 (08:38→21:29)
[2018-04-26] MEDS: PEPCID 20 MG IV PREMIX* 20 MG/50 ML BAG IV SCH ×2 (08:38→21:29)
[2018-04-26] MEDS: ACCUPRIL PO SCH (08:38)
[2018-04-26] MEDS: LYRICA CAP 50 MG PO SCH ×2 (08:38→21:30)
[2018-04-26] MEDS: PROTONIX INJ 40 MG VIAL IVP SCH ×2 (08:39→21:29)
[2018-04-26] MEDS ORDERED: HEMOCYTE-PLUS PO SCH (09:00)
[2018-04-26] MEDS ORDERED: GLYCOPYRROLATE FORMOTEROL IN SCH (09:00)
[2018-04-26] MEDS ORDERED: MAGNESIUM OXIDE 250 MG PO SCH (09:00)
[2018-04-26] MEDS: MAG-OX TAB PO SCH ×2 (10:17→21:30)
[2018-04-26] MEDS ORDERED: STERILE WATER IRRIGATION ONE (13:01)
[2018-04-26] MEDS: VITAMIN D3 PO SCH (13:49)
[2018-04-26] MEDS: NS 1/2 1000 ML IV 1,000 ML IV SCH (14:21)
[2018-04-26] MEDS ORDERED: DIPRIVAN VIAL 20 ML ONE (14:42)
[2018-04-26] MEDS ORDERED: EPHEDRINE SULFATE INJ ONE (14:54)
[2018-04-26] MEDS ORDERED: NULYTELY or GO-LYTELY PO SCH (15:00)
--- NOTE | 2018-04-26 15:24 | OR.GENERIC ---
Post-Op Note Generic - Post-Op Note Operative Report: EGD was done .. finding : Gastro duodenitis .No active bleeding . no ulcers, newplasm or varices . will start bowel prep ,for colonoscopy in am..
[2018-04-26 17:14] LABS: HEMATOCRIT 23.6 % (42.0-54.0)
[2018-04-26] MEDS: PULMICORT NEB TX 0.5 MG NEB SCH (20:16)
[2018-04-26] MEDS: LANTUS SC SCH (21:30)
[2018-04-26] MEDS: ZOCOR TAB 40 MG PO SCH (21:30)
[2018-04-26] MEDS: SNACK - Diabetic Appropriate PO SCH (21:30)
[2018-04-26] MEDS: FLOMAX PO SCH (21:30)
[2018-04-26] MEDS: ATIVAN TAB 0.5 MG PO PRN (23:09)
[2018-04-27] MEDS: DUONEB 0.5 MG/3 MG NEB SCH ×4 (04:35→20:05)
[2018-04-27] MEDS: TESSALON PERLES PO SCH ×3 (05:48→22:31)
[2018-04-27 06:09] LABS: ALANINE AMINOTRANSFERASE 29 Units/L (12-78); ALBUMIN 2.7 g/dL (3.4-5.0); ALKALINE PHOSPHATASE 79 Units/L (46-116); ASPARTATE AMINO TRANSFERASE 28 Units/L (15-37); BLOOD UREA NITROGEN 36 mg/dL (7-18); CARBON DIOXIDE 31.3 mmol/L (21-32); CHLORIDE 109 mmol/L (98-107); CREATININE 1.06 mg/dL (0.70-1.30); SODIUM 146 mmol/L (136-145); TOTAL PROTEIN 5.6 g/dL (6.4-8.2); eGFR NON BLACK RACES > 60 (>60)
[2018-04-27 06:10] LABS: BASOPHILS % (AUTO) 0.9 % (0.2-1.0); EOSINOPHILS # (AUTO) 0.1 x10^3/uL (0.0-0.2); EOSINOPHILS % (AUTO) 3.2 % (0.9-2.9); HEMOGLOBIN 7.8 g/dL (13.5-18.0); LYMPHOCYTES # (AUTO) 0.4 X10^3/uL (1.3-2.9); LYMPHOCYTES % (AUTO) 10.1 % (21.0-51.0); MEAN CORPUSCULAR HEMOGLOBIN 31.8 pg (27.0-34.0); MEAN CORPUSCULAR HGB CONC 34.1 g/dL (33.0-35.0); MEAN CORPUSCULAR VOLUME 93.3 fL (80.0-100.0); MEAN PLATELET VOLUME 8.2 fL (7.4-11.0); MONOCYTES # (AUTO) 0.4 x10^3/uL (0.3-0.8); MONOCYTES % (AUTO) 9.4 % (0.0-13.0); NEUTROPHILS # (AUTO) 3.4 x10^3/uL (2.2-4.8); NEUTROPHILS % (AUTO) 76.4 % (42.0-75.0); PLATELET COUNT 90 X10^3/uL (150.0-450.0); RED BLOOD COUNT 2.46 X10^6/uL (4.7-6.0); RED CELL DISTRIBUTION WIDTH 16.1 % (11.6-16.5); WHITE BLOOD COUNT 4.5 X10^3/uL (3.6-10.0)
[2018-04-27] MEDS ORDERED: D50W ABBOJECT SYR IV ONE (06:11)
[2018-04-27] MEDS: GLUCOPHAGE PO SCH ×2 (06:24→17:05)
[2018-04-27 06:51] LABS: ANISOCYTOSIS SLIGHT; HYPOCHROMASIA SLIGHT; PLATELET MORPHOLOGY COMMENT NORMAL (NORMAL)
[2018-04-27] MEDS: PROVENTIL NEB TX 0.083% 2.5MG/ 3ML NEB PRN ×2 (09:00→16:48)
[2018-04-27] MEDS: PULMICORT NEB TX 0.5 MG NEB SCH ×2 (09:00→20:05)
--- NOTE | 2018-04-27 09:13 | PCM.PROG ---
Progress Note - Progress Note for Day of Date of Exam: 04/26/18 - Subjective Subjective: WAS ADMITTED FOR SYMPTOMATIC ANEMIA, DEHYDRATION, AND COPD. HE HAS RECEIVED 5 UNITS OF PACKED RED BLOOD CELLS SINCE ADMISSION. TODAY, HE IS ALERT AND ORIENTED, LYING IN BED ON MORNING ROUNDS. HE REPORTS GENERALIZED WEAKNESS, SHORTNESS OF BREATH, AND DARK, TARRY STOOLS TODAY. ON EXAMINATION, HEART IS REGULAR IN RATE AND RHYTHM. BILATERAL LUNGS ARE NOTED WITH DIMINISHED LUNG SOUNDS THROUGHOUT. ABDOMEN IS ROUND, SOFT, AND NOTED WITH MILD, DIFFUSE TENDERNESS. NORMAL BOWEL SOUNDS NOTED IN ALL QUADRANTS. HIS VITALS THIS MORNING ARE 97.4-80-22-98%-159/55. LABS WERE OBTAINED. ABNORMAL LAB VALUES INCLUDE THE FOLLOWING: RBC 2.40, HGB7.7, HCT 22.3, PLT COUNT 82, CHLORIDE 109, BUN 50, GLUCOSE 112, TOTAL PROTEIN 5.5, ALBUMIN 2.6. AN ABDOMEN/PELVIS CT WAS OBTAINED ON ADMISSION AND REVALED: Ventral wall abdominal hernia contains loop of small bowel with oral contrast traversing this segment arguing against an obstructive process. Stable ancillary findings as above. Small pericardial effusion. Small bibasilar pleural effusions. TODAY, WE WILL CONSULT , GENERAL SURGEON FOR EGD AND COLONOSCOPY. WE WILL OBTAIN STOOL STUDIES AND START PEPCID 20MG IV BID. OTHERWISE, WE WILL CONTINUE WITH CURRENT PLAN OF CARE. WE PLAN TO FOLLOW UP WITH AM LABS AND CONTINUE TO MONITOR. - Past Medical Family Social History Past Med/Fam/Surg Hx: No changes since H&P Allergies: Allergies No Known Drug Allergies Allergy (Verified 04/23/18 17:31) - Review of Systems ROS: No change since H&P - Vital Signs and I&O's Vital Signs: Temperature 98.9 F Pulse Rate [Left] 88 Pulse Rate 88 Respiratory Rate 19 Blood Pressure [Left Arm] 159/55 Blood Pressure [Right Arm] 172/83 Blood Pressure 123/71 O2 Sat by Pulse Oximetry 99 Intake and Output: Intake & Output 04/24/18 04/25/18 04/26/18 04/27/18 11:59 11:59 11:59 11:59 Intake Total 354 / 354 3150 / 3150 2680 / 2680 3465 / 3465 Output Total 1000 / 1000 3550 / 3550 4025 / 4025 1045 / 1045 Balance -646 / -646 -400 / -400 -1345 / -1345 2420 / 2420 - Physical Exam Oriented: Normal Eyes: Normal Ear: Normal Nose: Normal Throat: Normal Respiratory: Diminished Cardiovascular: Normal : Normal Auscultation: Bowel Sounds: Normal Tenderness: Normal Skin: Decreased Turgur Musculoskeletal: Back:Lumbar Psychiatric: Anxiety Affect: Anxious Speech Pattern: Clear, Appropriate - Laboratory and Diagnostics Result Diagrams: 04/27/18 05:39 04/27/18 05:39 Labs: 04/24/18 07:42 Stool Stool Culture - Final 04/24/18 07:42 Stool - Final 04/24/18 11:40 Sputum - Expectorated Sputum Sputum Culture - Final 04/24/18 11:40 Sputum - Expectorated Sputum - Final Laboratory WBC 4.5 X10^3/uL (3.6-10.0) 04/27/18 05:39 RBC 2.46 X10^6/uL (4.7-6.0) L 04/27/18 05:39 Hgb 7.8 g/dL (13.5-18.0) L 04/27/18 05:39 Hct 23.0 % (42.0-54.0) L 04/27/18 05:39 MCV 93.3 fL (80.0-100.0) 04/27/18 05:39 MCH 31.8 pg (27.0-34.0) 04/27/18 05:39 MCHC 34.1 g/dL (33.0-35.0) 04/27/18 05:39 RDW 16.1 % (11.6-16.5) 04/27/18 05:39 Plt Count 90 X10^3/uL (150.0-450.0) L 04/27/18 05:39 Plt Count Comment Decreased (ADEQUATE) 04/27/18 05:39 MPV 8.2 fL (7.4-11.0) 04/27/18 05:39 Neut % (Auto) 76.4 % (42.0-75.0) H 04/27/18 05:39 Lymph % (Auto) 10.1 % (21.0-51.0) L 04/27/18 05:39 [place] % (Auto) 9.4 % (0.0-13.0) 04/27/18 05:39 Eos % (Auto) 3.2 % (0.9-2.9) H 04/27/18 05:39 Baso % (Auto) 0.9 % (0.2-1.0) 04/27/18 05:39 Neut # (Auto) 3.4 x10^3/uL (2.2-4.8) 04/27/18 05:39 Lymph # (Auto) 0.4 X10^3/uL (1.3-2.9) L 04/27/18 05:39 [place] # (Auto) 0.4 x10^3/uL (0.3-0.8) 04/27/18 05:39 Eos # (Auto) 0.1 x10^3/uL (0.0-0.2) 04/27/18 05:39 Baso # (Auto) 0.0 X10^3/uL (0.0-0.1) 04/27/18 05:39 Absolute Nucleated RBC 0.2 /100WBC 04/27/18 05:39 Plt Morphology Comment Normal (NORMAL) 04/27/18 05:39 RBC Morphology Abnormal (NORMAL) 04/27/18 05:39 Hypochromasia Slight A 04/27/18 05:39 Anisocytosis Slight A 04/27/18 05:39 D-Dimer 655 ng/mL (0-400) H* 04/23/18 19:00 Sample Site Rr 04/24/18 13:05 ABG pH 7.460 (7.35-7.45) H 04/24/18 13:05 ABG pCO2 38.0 mmHg (35.0-45.0) 04/24/18 13:05 ABG pO2 110.0 mmHg (80.0-100.0) H 04/24/18 13:05 ABG HCO3 27.0 mmol/L (22-26) H 04/24/18 13:05 ABG O2 Saturation 99.0 % (90-100) 04/24/18 13:05 ABG Base Excess 3.1 mmol/L (-2.0-2.0) H 04/24/18 13:05 Gerardo Test Pos 04/24/18 13:05 A-a Gradient 42.0 mmHg 04/24/18 13:05 FiO2 28.0 04/24/18 13:05 Blood Gas Comments Pt nigel well. cdn 04/24/18 13:05 Sodium 146 mmol/L (136-145) H 04/27/18 05:39 Corrected Sodium TNP 04/27/18 05:39 Potassium 4.1 mmol/L (3.5-5.1) 04/27/18 05:39 Chloride 109 mmol/L (98-107) H 04/27/18 05:39 Carbon Dioxide 31.3 mmol/L (21-32) 04/27/18 05:39 BUN 36 mg/dL (7-18) H 04/27/18 05:39 Creatinine 1.06 mg/dL (0.70-1.30) 04/27/18 05:39 Est GFR (MDRD) Af Amer > 60 (>60) 04/27/18 05:39 Est GFR (MDRD) Non-Af > 60 (>60) 04/27/18 05:39 Glucose 61 mg/dL (65-99) L 04/27/18 05:39 POC Glucose (mg/dL) 67 mg/dL (65-99) 04/27/18 05:45 Calcium 9.0 mg/dL (8.5-10.1) 04/27/18 05:39 Corrected Calcium 10.0 mg/dL (8.5-10.1) 04/27/18 05:39 Iron 36 ug/dL (50-175) L 04/25/18 04:52 Transferrin 200 mg/dL (202-364) L 04/25/18 04:52 Ferritin 70 ng/mL (26-388) 04/25/18 04:52 Total Bilirubin 0.60 mg/dL (0.2-1.0) 04/27/18 05:39 AST 28 Units/L (15-37) 04/27/18 05:39 ALT 29 Units/L (12-78) 04/27/18 05:39 Alkaline Phosphatase 79 Units/L (46-116) 04/27/18 05:39 B-Natriuretic Peptide 131 pg/mL (0-79) H 04/23/18 19:00 Total Protein 5.6 g/dL (6.4-8.2) L 04/27/18 05:39 Albumin 2.7 g/dL (3.4-5.0) L 04/27/18 05:39 Globulin 2.9 g/dL (2.5-4.5) 04/27/18 05:39 Albumin/Globulin Ratio 0.9 Ratio (1.1-2.1) L 04/27/18 05:39 Vitamin B12 291 pg/mL (193-986) 04/25/18 04:52 Folate > 20.0 ng/mL (>8.6) 04/25/18 04:52 Specimen Type Catherized urine 04/23/18 22:27 Urine Color Pale yellow (YELLOW) 04/23/18 22: Urine Appearance Clear (CLEAR) 04/23/18 22: Urine pH 6.0 (5.0 - 8.0) 04/23/18 22: Ur Specific [place] 1.005 (1.000-1.030) 04/23/18 22: Urine Protein 2+ (NEGATIVE) 04/23/18 22: Urine Glucose (UA) Negative (NEGATIVE) 04/23/18 22: Urine Ketones Negative (NEGATIVE) 04/23/18 22:27 Urine Occult Blood 1+ (NEGATIVE) 04/23/18 22:27 Urine Nitrite Negative (NEGATIVE) 04/23/18 22: Urine Bilirubin Negative (NEGATIVE) 04/23/18 22:27 Urine Urobilinogen Normal (NORMAL) 04/23/18 22:27 Ur Leukocyte Esterase 1+ (NEGATIVE) 04/23/18 22:27 Urine RBC 3-5 /HPF (NONE SEEN) 04/23/18 22:27 Urine WBC 3-5 /HPF (NONE SEEN) 04/23/18 22:27 Ur Squamous Epith Cells Rare /HPF (NEGATIVE) 04/23/18 22:27 Urine Bacteria Negative /HPF (NEGATIVE) 04/23/18 22:27 Hyaline Casts Few /LPF (NEGATIVE) 04/23/18 22:27 Ur Culture Indicated? No/not indicated 04/23/18 22:27 Stool Description 100 g. black/liquid 04/27/18 02:12 Stl Occult Blood (IFOB) Positive (NEGATIVE) A 04/27/18 02:12 Stool for White Cells Negative (NEGATIVE) 04/24/18 07:42 Tissue Pathology To follow 04/26/18 14:48 Blood Type O NEGATIVE 04/23/18 19:00 Antibody Screen Negative 04/23/18 19:00 Crossmatch See Detail 04/23/18 19:00 - Plan (1) Severe anemia Status: Acute Plan: MONITOR H&H AND TRANSFUSE PRBC IF HGB FALLS BELOW 7, CONSULT FOR EGD/COLONOSCOPY (2) COPD (chronic obstructive pulmonary disease) Status: Chronic Qualifiers: COPD type: unspecified COPD Qualified Code(s): J44.9 - Chronic obstructive pulmonary disease, unspecified
[2018-04-27] MEDS: VITAMIN D3 PO SCH (10:00)
[2018-04-27] MEDS: MUCINEX EXPECTORANT PO SCH ×2 (10:01→21:09)
[2018-04-27] MEDS: ACCUPRIL PO SCH ×2 (10:01→10:20)
[2018-04-27] MEDS: LYRICA CAP 50 MG PO SCH ×3 (10:01→21:09)
[2018-04-27] MEDS: MAG-OX TAB PO SCH ×2 (10:01→21:09)
[2018-04-27] MEDS: NORCO 5/325 MG TAB PO PRN ×2 (10:21→21:36)
[2018-04-27] MEDS: PROTONIX INJ 40 MG VIAL IVP SCH ×2 (10:21→21:11)
[2018-04-27] MEDS: PEPCID 20 MG IV PREMIX* 20 MG/50 ML BAG IV SCH ×2 (10:21→21:10)
[2018-04-27] MEDS: ATIVAN TAB 0.5 MG PO PRN ×2 (10:22→22:31)
[2018-04-27 11:41] LABS: HEMATOCRIT 21.8 % (42.0-54.0); HEMOGLOBIN 7.4 g/dL (13.5-18.0)
[2018-04-27] MEDS ORDERED: STERILE WATER IRRIGATION ONE (12:53)
[2018-04-27] MEDS ORDERED: NS 500 ML IV 500 ML ONE (14:43)
[2018-04-27] MEDS ORDERED: DIPRIVAN VIAL 20 ML ONE (14:50)
[2018-04-27] MEDS ORDERED: DULCOLAX TAB EC 5 MG PO ONE (15:11)
[2018-04-27 15:39] LABS: HEMATOCRIT 21.1 % (42.0-54.0); HEMOGLOBIN 7.2 g/dL (13.5-18.0)
[2018-04-27] MEDS ORDERED: MIRALAX POWDER (255 GRAMS BTL) PO NR (16:00)
--- NOTE | 2018-04-27 16:17 | OR.GENERIC ---
Post-Op Note Generic - Post-Op Note Operative Report: limited colonoscopy to distal TC .. prep was not satisfactory . up to that level there was no bleeding , neoplasm or IBD . will give more prep and repeat colonoscopy in am ..
[2018-04-27] MEDS ORDERED: NS 1/2 1000 ML IV 1,000 ML ONE (16:51)
[2018-04-27] MEDS: NS 1/2 1000 ML IV 1,000 ML IV SCH (17:04)
[2018-04-27] MEDS ORDERED: LASIX IVP ONE (19:03)
[2018-04-27 19:32] LABS: HEMATOCRIT 22.8 % (42.0-54.0); HEMOGLOBIN 7.7 g/dL (13.5-18.0)
[2018-04-27] MEDS: SNACK - Diabetic Appropriate PO SCH (21:08)
[2018-04-27] MEDS: FLOMAX PO SCH (21:09)
[2018-04-27] MEDS: ZOCOR TAB 40 MG PO SCH (21:11)
[2018-04-27] MEDS: VISTARIL PO PRN (21:36)
--- NOTE | 2018-04-27 22:17 | PCM.PROG ---
Progress Note - Progress Note for Day of Date of Exam: 04/27/18 - Subjective Subjective: WAS ADMITTED FOR SYMPTOMATIC ANEMIA, DEHYDRATION, AND COPD. HE HAS RECEIVED 5 UNITS OF PACKED RED BLOOD CELLS SINCE ADMISSION. TODAY, HE IS ALERT AND ORIENTED, LYING IN BED ON MORNING ROUNDS. HE CONTINUES WITH GENERALIZED WEAKNESS, SHORTNESS OF BREATH, AND DARK, TARRY STOOLS TODAY. ON EXAMINATION, HEART IS REGULAR IN RATE AND RHYTHM. BILATERAL LUNGS ARE NOTED WITH DIMINISHED LUNG SOUNDS THROUGHOUT. ABDOMEN IS ROUND, SOFT, AND NOTED WITH MILD, DIFFUSE TENDERNESS. NORMAL BOWEL SOUNDS NOTED IN ALL QUADRANTS. HIS VITALS THIS MORNING ARE 97.4-92-29-100%-143/73. LABS WERE OBTAINED. ABNORMAL LAB VALUES INCLUDE THE FOLLOWING: RBC 2.46, HGB 7.8, HCT 23.0, PLT COUNT 90, SODIUM 146, C HLORIDE 109, BUN 36, GLUCOSE 61, TOTAL PROTEIN 5.6, ALBUMIN 2.7. STOOL POSITIVE FOR OCCULT BLOOD. , GENERAL SURGEON WAS CONSULTED. HE PERFORMED AN EGD YESTERDAY. IT REVEALED: GASTRO DUODENITIS. NO ACTIVE BLEEDING, ULCERS, NEOPLASMS, OR VARICIES. HE WILL OBTAIN A COLONOSCOPY TODAY. WE DICKENS IN AGREEMENT WITH PLAN. WE WILL CONTINUE WITH CURRENT PLAN OF CARE TODAY AND MONITOR H&H. IF HEMOGLOBIN FALLS BELOW 7, WE WILL TRANSFUSE TWO UNITS OF PRBC. OTHERWISE, WE PLAN TO FOLLOW UP WITH AM LABS AND CONTINUE TO MONITOR. - Past Medical Family Social History Past Med/Fam/Surg Hx: No changes since H&P Allergies: Allergies No Known Drug Allergies Allergy (Verified 04/23/18 17:31) - Review of Systems ROS: No change since H&P - Vital Signs and I&O's Vital Signs: Temperature 97.8 F Pulse Rate [Left] 94 Pulse Rate 88 Respiratory Rate 19 Blood Pressure [Left Arm] 159/55 Blood Pressure [Right Arm] 124/60 Blood Pressure 123/71 O2 Sat by Pulse Oximetry 93 Intake and Output: Intake & Output 04/25/18 04/26/18 04/27/18 04/28/18 11:59 11:59 11:59 11:59 Intake Total 3150 / 3150 2680 / 2680 3465 / 3465 2764 / 2764 Output Total 3550 / 3550 4025 / 4025 1045 / 1045 400 / 400 Balance -400 / -400 -1345 / -1345 2420 / 2420 2364 / 2364 - Physical Exam Oriented: Normal Eyes: Normal Ear: Normal Nose: Normal Throat: Normal Respiratory: Diminished Cardiovascular: Normal : Normal Auscultation: Bowel Sounds: Normal Tenderness: Normal Skin: Decreased Turgur Musculoskeletal: Back:Lumbar Psychiatric: Anxiety Affect: Anxious Speech Pattern: Clear, Appropriate - Laboratory and Diagnostics Result Diagrams: 04/27/18 19:22 04/27/18 05:39 Labs: 04/24/18 07:42 Stool Stool Culture - Final 04/24/18 07:42 Stool - Final 04/24/18 11:40 Sputum - Expectorated Sputum Sputum Culture - Final 04/24/18 11:40 Sputum - Expectorated Sputum - Final Laboratory WBC 4.5 X10^3/uL (3.6-10.0) 04/27/18 05:39 RBC 2.46 X10^6/uL (4.7-6.0) L 04/27/18 05:39 Hgb 7.7 g/dL (13.5-18.0) L 04/27/18 19:22 Hct 22.8 % (42.0-54.0) L 04/27/18 19:22 MCV 93.3 fL (80.0-100.0) 04/27/18 05:39 MCH 31.8 pg (27.0-34.0) 04/27/18 05:39 MCHC 34.1 g/dL (33.0-35.0) 04/27/18 05:39 RDW 16.1 % (11.6-16.5) 04/27/18 05:39 Plt Count 90 X10^3/uL (150.0-450.0) L 04/27/18 05:39 Plt Count Comment Decreased (ADEQUATE) 04/27/18 05:39 MPV 8.2 fL (7.4-11.0) 04/27/18 05:39 Neut % (Auto) 76.4 % (42.0-75.0) H 04/27/18 05:39 Lymph % (Auto) 10.1 % (21.0-51.0) L 04/27/18 05:39 [place] % (Auto) 9.4 % (0.0-13.0) 04/27/18 05:39 Eos % (Auto) 3.2 % (0.9-2.9) H 04/27/18 05:39 Baso % (Auto) 0.9 % (0.2-1.0) 04/27/18 05:39 Neut # (Auto) 3.4 x10^3/uL (2.2-4.8) 04/27/18 05:39 Lymph # (Auto) 0.4 X10^3/uL (1.3-2.9) L 04/27/18 05:39 [place] # (Auto) 0.4 x10^3/uL (0.3-0.8) 04/27/18 05:39 Eos # (Auto) 0.1 x10^3/uL (0.0-0.2) 04/27/18 05:39 Baso # (Auto) 0.0 X10^3/uL (0.0-0.1) 04/27/18 05:39 Absolute Nucleated RBC 0.2 /100WBC 04/27/18 05:39 Plt Morphology Comment Normal (NORMAL) 04/27/18 05:39 RBC Morphology Abnormal (NORMAL) 04/27/18 05:39 Hypochromasia Slight A 04/27/18 05:39 Anisocytosis Slight A 04/27/18 05:39 D-Dimer 655 ng/mL (0-400) H* 04/23/18 19:00 Sample Site Rr 04/24/18 13:05 ABG pH 7.460 (7.35-7.45) H 04/24/18 13:05 ABG pCO2 38.0 mmHg (35.0-45.0) 04/24/18 13:05 ABG pO2 110.0 mmHg (80.0-100.0) H 04/24/18 13:05 ABG HCO3 27.0 mmol/L (22-26) H 04/24/18 13:05 ABG O2 Saturation 99.0 % (90-100) 04/24/18 13:05 ABG Base Excess 3.1 mmol/L (-2.0-2.0) H 04/24/18 13:05 Gerardo Test Pos 04/24/18 13:05 A-a Gradient 42.0 mmHg 04/24/18 13:05 FiO2 28.0 04/24/18 13:05 Blood Gas Comments Pt nigel well. cdn 04/24/18 13:05 Sodium 146 mmol/L (136-145) H 04/27/18 05:39 Corrected Sodium TNP 04/27/18 05:39 Potassium 4.1 mmol/L (3.5-5.1) 04/27/18 05:39 Chloride 109 mmol/L (98-107) H 04/27/18 05:39 Carbon Dioxide 31.3 mmol/L (21-32) 04/27/18 05:39 BUN 36 mg/dL (7-18) H 04/27/18 05:39 Creatinine 1.06 mg/dL (0.70-1.30) 04/27/18 05:39 Est GFR (MDRD) Af Amer > 60 (>60) 04/27/18 05:39 Est GFR (MDRD) Non-Af > 60 (>60) 04/27/18 05:39 Glucose 61 mg/dL (65-99) L 04/27/18 05:39 POC Glucose (mg/dL) 172 mg/dL (65-99) H 04/27/18 21:16 Calcium 9.0 mg/dL (8.5-10.1) 04/27/18 05:39 Corrected Calcium 10.0 mg/dL (8.5-10.1) 04/27/18 05:39 Iron 36 ug/dL (50-175) L 04/25/18 04:52 Transferrin 200 mg/dL (202-364) L 04/25/18 04:52 Ferritin 70 ng/mL (26-388) 04/25/18 04:52 Total Bilirubin 0.60 mg/dL (0.2-1.0) 04/27/18 05:39 AST 28 Units/L (15-37) 04/27/18 05:39 ALT 29 Units/L (12-78) 04/27/18 05:39 Alkaline Phosphatase 79 Units/L (46-116) 04/27/18 05:39 B-Natriuretic Peptide 131 pg/mL (0-79) H 04/23/18 19:00 Total Protein 5.6 g/dL (6.4-8.2) L 04/27/18 05:39 Albumin 2.7 g/dL (3.4-5.0) L 04/27/18 05:39 Globulin 2.9 g/dL (2.5-4.5) 04/27/18 05:39 Albumin/Globulin Ratio 0.9 Ratio (1.1-2.1) L 04/27/18 05:39 Vitamin B12 291 pg/mL (193-986) 04/25/18 04:52 Folate > 20.0 ng/mL (>8.6) 04/25/18 04:52 Specimen Type Catherized urine 04/23/18 22:27 Urine Color Pale yellow (YELLOW) 04/23/18 22: Urine Appearance Clear (CLEAR) 04/23/18 22: Urine pH 6.0 (5.0 - 8.0) 04/23/18 22: Ur Specific [place] 1.005 (1.000-1.030) 04/23/18 22:27 Urine Protein 2+ (NEGATIVE) 04/23/18 22: Urine Glucose (UA) Negative (NEGATIVE) 04/23/18 22: Urine Ketones Negative (NEGATIVE) 04/23/18 22:27 Urine Occult Blood 1+ (NEGATIVE) 04/23/18 22:27 Urine Nitrite Negative (NEGATIVE) 04/23/18 22: Urine Bilirubin Negative (NEGATIVE) 04/23/18 22:27 Urine Urobilinogen Normal (NORMAL) 04/23/18 22:27 Ur Leukocyte Esterase 1+ (NEGATIVE) 04/23/18 22:27 Urine RBC 3-5 /HPF (NONE SEEN) 04/23/18 22:27 Urine WBC 3-5 /HPF (NONE SEEN) 04/23/18 22:27 Ur Squamous Epith Cells Rare /HPF (NEGATIVE) 04/23/18 22:27 Urine Bacteria Negative /HPF (NEGATIVE) 04/23/18 22:27 Hyaline Casts Few /LPF (NEGATIVE) 04/23/18 22:27 Ur Culture Indicated? No/not indicated 04/23/18 22:27 Stool Description 100 g. black/liquid 04/27/18 02:12 Stl Occult Blood (IFOB) Positive (NEGATIVE) A 04/27/18 02:12 Stool for White Cells Negative (NEGATIVE) 04/24/18 07:42 Tissue Pathology To follow 04/26/18 14:48 Blood Type O NEGATIVE 04/27/18 19:37 Antibody Screen Negative 04/27/18 19:37 Crossmatch See Detail 04/27/18 19:37 - Plan (1) Severe anemia Status: Acute Plan: MONITOR H&H AND TRANSFUSE PRBC IF HGB FALLS BELOW 7, COLONOSCOPY TODAY (2) COPD (chronic obstructive pulmonary disease) Status: Chronic Qualifiers: COPD type: unspecified COPD Qualified Code(s): J44.9 - Chronic obstructive pulmonary disease, unspecified
[2018-04-27] MEDS: VALIUM PO PRN (22:34)
[2018-04-27 23:28] LABS: HEMATOCRIT 24.4 % (42.0-54.0); HEMOGLOBIN 8.3 g/dL (13.5-18.0)
[2018-04-27] MEDS ORDERED: PHENERGAN INJ 25 MG IM PRN (23:33)
[2018-04-28 03:26] LABS: HEMATOCRIT 23.8 % (42.0-54.0); HEMOGLOBIN 8.1 g/dL (13.5-18.0)
[2018-04-28] MEDS: DUONEB 0.5 MG/3 MG NEB SCH ×3 (05:23→20:25)
[2018-04-28] MEDS: TESSALON PERLES PO SCH ×3 (06:39→21:10)
[2018-04-28] MEDS: NORCO 5/325 MG TAB PO PRN ×3 (06:40→20:42)
[2018-04-28] MEDS: GLUCOPHAGE PO SCH ×2 (07:13→16:16)
[2018-04-28 07:48] LABS: BASOPHILS % (AUTO) 0.3 % (0.2-1.0); EOSINOPHILS % (AUTO) 0.1 % (0.9-2.9); HEMATOCRIT 20.9 % (42.0-54.0); HEMOGLOBIN 7.2 g/dL (13.5-18.0); LYMPHOCYTES # (AUTO) 0.3 X10^3/uL (1.3-2.9); LYMPHOCYTES % (AUTO) 2.5 % (21.0-51.0); MEAN CORPUSCULAR HEMOGLOBIN 31.9 pg (27.0-34.0); MEAN CORPUSCULAR HGB CONC 34.4 g/dL (33.0-35.0); MEAN CORPUSCULAR VOLUME 92.6 fL (80.0-100.0); MEAN PLATELET VOLUME 8.4 fL (7.4-11.0); MONOCYTES # (AUTO) 0.5 x10^3/uL (0.3-0.8); MONOCYTES % (AUTO) 5.4 % (0.0-13.0); NEUTROPHILS % (AUTO) 91.7 % (42.0-75.0); PLATELET COUNT 102 X10^3/uL (150.0-450.0); RED BLOOD COUNT 2.26 X10^6/uL (4.7-6.0); RED CELL DISTRIBUTION WIDTH 15.8 % (11.6-16.5); WHITE BLOOD COUNT 9.8 X10^3/uL (3.6-10.0)
[2018-04-28 07:57] LABS: ALANINE AMINOTRANSFERASE 29 Units/L (12-78); ALBUMIN 2.6 g/dL (3.4-5.0); ALKALINE PHOSPHATASE 73 Units/L (46-116); ASPARTATE AMINO TRANSFERASE 25 Units/L (15-37); BLOOD UREA NITROGEN 25 mg/dL (7-18); CALCIUM 8.1 mg/dL (8.5-10.1); CARBON DIOXIDE 29.6 mmol/L (21-32); CHLORIDE 104 mmol/L (98-107); COR CA(FOR HYPOALB) 9.2 mg/dL (8.5-10.1); COR NA(FOR HYPERGLY) 140 mmol/L (136-145); CREATININE 1.09 mg/dL (0.70-1.30); SODIUM 139 mmol/L (136-145); TOTAL PROTEIN 5.4 g/dL (6.4-8.2); eGFR NON BLACK RACES > 60 (>60)
[2018-04-28 07:58] LABS: ANISOCYTOSIS SLIGHT; HYPOCHROMASIA SLIGHT; PLATELET MORPHOLOGY COMMENT NORMAL (NORMAL)
[2018-04-28] MEDS: PULMICORT NEB TX 0.5 MG NEB SCH ×2 (08:22→20:25)
[2018-04-28] MEDS: MUCINEX EXPECTORANT PO SCH ×2 (08:29→20:41)
[2018-04-28] MEDS: MAG-OX TAB PO SCH ×2 (08:29→20:41)
[2018-04-28] MEDS: VITAMIN D3 PO SCH (08:30)
[2018-04-28] MEDS: PROTONIX INJ 40 MG VIAL IVP SCH ×2 (08:30→20:42)
[2018-04-28] MEDS: PEPCID 20 MG IV PREMIX* 20 MG/50 ML BAG IV SCH ×2 (08:30→20:42)
[2018-04-28] MEDS ORDERED: DIPRIVAN VIAL 20 ML ONE (10:25)
[2018-04-28] MEDS ORDERED: FENTANYL INJ 100 mcg ONE (10:27)
[2018-04-28] MEDS ORDERED: NS 1000 ML 1,000 ML ONE (10:30)
[2018-04-28] MEDS: ACCUPRIL PO SCH (11:52)
[2018-04-28] MEDS: LYRICA CAP 50 MG PO SCH ×2 (11:52→20:41)
--- NOTE | 2018-04-28 11:58 | PCM.PROG ---
Progress Note - Progress Note for Day of Date of Exam: 04/28/18 - Subjective Subjective: WAS ADMITTED FOR SYMPTOMATIC ANEMIA, DEHYDRATION, AND COPD. HE HAS RECEIVED 5 UNITS OF PACKED RED BLOOD CELLS SINCE ADMISSION. TODAY, HE IS ALERT AND ORIENTED, LYING IN BED ON MORNING ROUNDS. HE CONTINUES WITH WEAKNESS, DIFFUSE ABDOMINAL PAIN, AND SHORTNESS OF BREATH TODAY. ON EXAMINATION, HEART IS REGULAR IN RATE AND RHYTHM. BILATERAL LUNGS ARE NOTED WITH CRACKLES AND SCATTERED RHONCHI. ABDOMEN IS ROUND, SOFT, AND NOTED WITH MILD, DIFFUSE TENDERNESS. NORMAL BOWEL SOUNDS NOTED IN ALL QUADRANTS. HIS VITALS THIS MORNING ARE 98.3-82-16-98%-93/54. LABS WERE OBTAINED. ABNORMAL LAB VALUES INCLUDE THE FOLLOWING: RBC 2.26, HGB 7.2, HYCT 20.9, PLT COUNT 102, BUN 25, GLUCOSE 155, QUYNH CIUM 8.1, TOTAL PROTEIN 5.4, ALBUMIN 2.6. PERFORMED AN EGD THURSDAY. IT REVEALED: GASTRO DUODENITIS. NO ACTIVE BLEEDING, ULCERS, NEOPLASMS, OR VARICIES. A COLONOSCOPY WAS ATTEMPTED YESTERDAY, HOWEVER, DUE TO POOR PREP IT WILL BE ATTEMPTED AGAIN TODAY. WE DICKENS IN AGREEMENT WITH PLAN. WE WILL CONTINUE WITH CURRENT PLAN OF CARE TODAY AND MONITOR H&H. IF HEMOGLOBIN FALLS BELOW 7, WE WILL TRANSFUSE TWO UNITS OF PRBC. WE WILL ALSO OBTAIN A CHEST XRAY, BNP, AND START LASIX 20MG IV BID. OTHERWISE, WE PLAN TO FOLLOW UP WITH AM LABS AND CONTINUE TO MONITOR. - Past Medical Family Social History Past Med/Fam/Surg Hx: No changes since H&P Allergies: Allergies No Known Drug Allergies Allergy (Verified 04/23/18 17:31) - Review of Systems ROS: No change since H&P - Vital Signs and I&O's Vital Signs: Temperature 98.3 F Pulse Rate [Left] 83 Pulse Rate 83 Respiratory Rate 18 Blood Pressure [Left Arm] 159/55 Blood Pressure [Right Arm] 132/80 Blood Pressure 123/71 O2 Sat by Pulse Oximetry 96 Intake and Output: Intake & Output 04/25/18 04/26/18 04/27/18 04/28/18 11:59 11:59 11:59 11:59 Intake Total 3150 / 3150 2680 / 2680 3465 / 3465 5014 / 5014 Output Total 3550 / 3550 4025 / 4025 1045 / 1045 1400 / 1400 Balance -400 / -400 -1345 / -1345 2420 / 2420 3614 / 3614 - Physical Exam Oriented: Normal Eyes: Normal Ear: Normal Nose: Normal Throat: Normal Respiratory: Generalized, Rhonchi, OTHER (CRACKLES ) Cardiovascular: Normal : Normal Auscultation: Bowel Sounds: Normal Palpation: Normal Tenderness: Normal Skin: Decreased Turgur Musculoskeletal: Back:Lumbar Psychiatric: Anxiety Affect: Anxious Speech Pattern: Clear, Appropriate - Laboratory and Diagnostics Result Diagrams: 04/28/18 07:28 04/28/18 07:28 Labs: 04/24/18 07:42 Stool Stool Culture - Final 04/24/18 07:42 Stool - Final 04/24/18 11:40 Sputum - Expectorated Sputum Sputum Culture - Final 04/24/18 11:40 Sputum - Expectorated Sputum - Final Laboratory WBC 9.8 X10^3/uL (3.6-10.0) 04/28/18 07:28 RBC 2.26 X10^6/uL (4.7-6.0) L 04/28/18 07:28 Hgb 7.2 g/dL (13.5-18.0) L 04/28/18 07:28 Hct 20.9 % (42.0-54.0) L 04/28/18 07:28 MCV 92.6 fL (80.0-100.0) 04/28/18 07:28 MCH 31.9 pg (27.0-34.0) 04/28/18 07:28 MCHC 34.4 g/dL (33.0-35.0) 04/28/18 07:28 RDW 15.8 % (11.6-16.5) 04/28/18 07:28 Plt Count 102 X10^3/uL (150.0-450.0) L 04/28/18 07:28 Plt Count Comment Decreased (ADEQUATE) 04/28/18 07:28 MPV 8.4 fL (7.4-11.0) 04/28/18 07:28 Neut % (Auto) 91.7 % (42.0-75.0) H 04/28/18 07:28 Lymph % (Auto) 2.5 % (21.0-51.0) L 04/28/18 07:28 [place] % (Auto) 5.4 % (0.0-13.0) 04/28/18 07:28 Eos % (Auto) 0.1 % (0.9-2.9) L 04/28/18 07:28 Baso % (Auto) 0.3 % (0.2-1.0) 04/28/18 07:28 Neut # (Auto) 9.0 x10^3/uL (2.2-4.8) H 04/28/18 07:28 Lymph # (Auto) 0.3 X10^3/uL (1.3-2.9) L 04/28/18 07:28 [place] # (Auto) 0.5 x10^3/uL (0.3-0.8) 04/28/18 07:28 Eos # (Auto) 0.0 x10^3/uL (0.0-0.2) 04/28/18 07:28 Baso # (Auto) 0.0 X10^3/uL (0.0-0.1) 04/28/18 07:28 Absolute Nucleated RBC 0.3 /100WBC 04/28/18 07:28 Total Counted 100 04/28/18 07:28 Neutrophils % (Manual) 85 % (39-76) H 04/28/18 07:28 Band Neutrophils % 310 % (0-10) H 04/28/18 07:28 Lymphocytes % (Manual) 2 % (13-43) L 04/28/18 07:28 Plt Morphology Comment Normal (NORMAL) 04/28/18 07:28 RBC Morphology Abnormal (NORMAL) 04/28/18 07:28 Hypochromasia Slight A 04/28/18 07:28 Anisocytosis Slight A 04/28/18 07:28 D-Dimer 655 ng/mL (0-400) H* 04/23/18 19:00 Sample Site Rr 04/24/18 13:05 ABG pH 7.460 (7.35-7.45) H 04/24/18 13:05 ABG pCO2 38.0 mmHg (35.0-45.0) 04/24/18 13:05 ABG pO2 110.0 mmHg (80.0-100.0) H 04/24/18 13:05 ABG HCO3 27.0 mmol/L (22-26) H 04/24/18 13:05 ABG O2 Saturation 99.0 % (90-100) 04/24/18 13:05 ABG Base Excess 3.1 mmol/L (-2.0-2.0) H 04/24/18 13:05 Gerardo Test Pos 04/24/18 13:05 A-a Gradient 42.0 mmHg 04/24/18 13:05 FiO2 28.0 04/24/18 13:05 Blood Gas Comments Pt nigel well. cdn 04/24/18 13:05 Sodium 139 mmol/L (136-145) 04/28/18 07:28 Corrected Sodium 140 mmol/L (136-145) 04/28/18 07:28 Potassium 4.1 mmol/L (3.5-5.1) 04/28/18 07:28 Chloride 104 mmol/L (98-107) 04/28/18 07:28 Carbon Dioxide 29.6 mmol/L (21-32) 04/28/18 07:28 BUN 25 mg/dL (7-18) H 04/28/18 07:28 Creatinine 1.09 mg/dL (0.70-1.30) 04/28/18 07:28 Est GFR (MDRD) Af Amer > 60 (>60) 04/28/18 07:28 Est GFR (MDRD) Non-Af > 60 (>60) 04/28/18 07:28 Glucose 155 mg/dL (65-99) H 04/28/18 07:28 POC Glucose (mg/dL) 152 mg/dL (65-99) H 04/28/18 05:27 Calcium 8.1 mg/dL (8.5-10.1) L 04/28/18 07:28 Corrected Calcium 9.2 mg/dL (8.5-10.1) 04/28/18 07:28 Iron 36 ug/dL (50-175) L 04/25/18 04:52 Transferrin 200 mg/dL (202-364) L 04/25/18 04:52 Ferritin 70 ng/mL (26-388) 04/25/18 04:52 Total Bilirubin 0.60 mg/dL (0.2-1.0) 04/28/18 07:28 AST 25 Units/L (15-37) 04/28/18 07:28 ALT 29 Units/L (12-78) 04/28/18 07:28 Alkaline Phosphatase 73 Units/L (46-116) 04/28/18 07:28 B-Natriuretic Peptide 114 pg/mL (0-79) H 04/28/18 07:28 Total Protein 5.4 g/dL (6.4-8.2) L 04/28/18 07:28 Albumin 2.6 g/dL (3.4-5.0) L 04/28/18 07:28 Globulin 2.8 g/dL (2.5-4.5) 04/28/18 07:28 Albumin/Globulin Ratio 0.9 Ratio (1.1-2.1) L 04/28/18 07:28 Vitamin B12 291 pg/mL (193-986) 04/25/18 04:52 Folate > 20.0 ng/mL (>8.6) 04/25/18 04:52 Specimen Type Catherized urine 04/23/18 22: Urine Color Pale yellow (YELLOW) 04/23/18 22: Urine Appearance Clear (CLEAR) 04/23/18 22: Urine pH 6.0 (5.0 - 8.0) 04/23/18 22: Ur Specific [place] 1.005 (1.000-1.030) 04/23/18 22: Urine Protein 2+ (NEGATIVE) 04/23/18 22: Urine Glucose (UA) Negative (NEGATIVE) 04/23/18 22: Urine Ketones Negative (NEGATIVE) 04/23/18 22: Urine Occult Blood 1+ (NEGATIVE) 04/23/18 22: Urine Nitrite Negative (NEGATIVE) 04/23/18 22: Urine Bilirubin Negative (NEGATIVE) 04/23/18 22: Urine Urobilinogen Normal (NORMAL) 04/23/18 22: Ur Leukocyte Esterase 1+ (NEGATIVE) 04/23/18 22: Urine RBC 3-5 /HPF (NONE SEEN) 04/23/18 22:27 Urine WBC 3-5 /HPF (NONE SEEN) 04/23/18 22:27 Ur Squamous Epith Cells Rare /HPF (NEGATIVE) 04/23/18 22: Urine Bacteria Negative /HPF (NEGATIVE) 04/23/18 22:27 Hyaline Casts Few /LPF (NEGATIVE) 04/23/18 22:27 Ur Culture Indicated? No/not indicated 04/23/18 22:27 Stool Description 100 g. black/liquid 04/27/18 02:12 Stl Occult Blood (IFOB) Positive (NEGATIVE) A 04/27/18 02:12 Stool for White Cells Negative (NEGATIVE) 04/24/18 07:42 Tissue Pathology To follow 04/28/18 11:32 Blood Type O NEGATIVE 04/27/18 19:37 Antibody Screen Negative 04/27/18 19:37 Crossmatch See Detail 04/27/18 19:37 - Plan (1) Severe anemia Status: Acute Plan: MONITOR H&H AND TRANSFUSE PRBC IF HGB FALLS BELOW 7, COLONOSCOPY TODAY (2) COPD (chronic obstructive pulmonary disease) Status: Chronic Qualifiers: COPD type: unspecified COPD Qualified Code(s): J44.9 - Chronic obstructive pulmonary disease, unspecified (3) Fluid overload Status: Acute Qualifiers: Hypervolemia type: unspecified Qualified Code(s): E87.70 - Fluid overload, unspecified Plan: LASIX 20MG IV BID, OBTAIN BNP, OBTAIN CHEST XRAY, CONTINUE TO MONITOR
[2018-04-28] MEDS: LASIX IVP SCH ×2 (12:59→20:44)
[2018-04-28] MEDS: NS 1/2 1000 ML IV 1,000 ML IV SCH (13:00)
[2018-04-28] MEDS: VALIUM PO PRN (13:01)
[2018-04-28] MEDS ORDERED: STERILE WATER IRRIGATION ONE (13:02)
--- NOTE | 2018-04-28 15:04 | RAD ---
History: Shortness of breath and left upper lobe lung cancer Study: Portable upright AP chest comparison: April 25 Findings: There is an unchanged right subclavian Port-A-Cath. The heart is enlarged. There is limited inspiration overall. There is chronic elevation of the left hemidiaphragm there is an unchanged wedge-shaped density in the left upper lobe extending from the left hilum. There is chronic interstitial lung disease. Impression: No change and no acute disease. Chronic findings include cardiomegaly, elevated left hilum and wedge-shaped left perihilar upper lobe density Reported By:
[2018-04-28 15:46] LABS: HEMATOCRIT 21.3 % (42.0-54.0); HEMOGLOBIN 7.3 g/dL (13.5-18.0)
[2018-04-28] MEDS ORDERED: GLUCOPHAGE ONE (15:55)
[2018-04-28] MEDS: PROVENTIL NEB TX 0.083% 2.5MG/ 3ML NEB PRN ×2 (17:20)
[2018-04-28 19:28] LABS: HEMATOCRIT 22.1 % (42.0-54.0); HEMOGLOBIN 7.4 g/dL (13.5-18.0)
[2018-04-28] MEDS: FLOMAX PO SCH (20:41)
[2018-04-28] MEDS: ZOCOR TAB 40 MG PO SCH (20:41)
[2018-04-28] MEDS: SNACK - Diabetic Appropriate PO SCH (20:43)
[2018-04-28] MEDS: VISTARIL PO PRN (20:53)
[2018-04-28 23:43] LABS: HEMATOCRIT 21.9 % (42.0-54.0); HEMOGLOBIN 7.5 g/dL (13.5-18.0)
[2018-04-29 03:56] LABS: BASOPHILS % (AUTO) 0.4 % (0.2-1.0); EOSINOPHILS # (AUTO) 0.1 x10^3/uL (0.0-0.2); HEMATOCRIT 20.7 % (42.0-54.0); LYMPHOCYTES # (AUTO) 0.3 X10^3/uL (1.3-2.9); LYMPHOCYTES % (AUTO) 6.5 % (21.0-51.0); MEAN CORPUSCULAR HEMOGLOBIN 31.7 pg (27.0-34.0); MEAN CORPUSCULAR HGB CONC 33.8 g/dL (33.0-35.0); MEAN CORPUSCULAR VOLUME 93.8 fL (80.0-100.0); MEAN PLATELET VOLUME 8.6 fL (7.4-11.0); MONOCYTES # (AUTO) 0.4 x10^3/uL (0.3-0.8); MONOCYTES % (AUTO) 7.7 % (0.0-13.0); NEUTROPHILS # (AUTO) 4.5 x10^3/uL (2.2-4.8); NEUTROPHILS % (AUTO) 83.4 % (42.0-75.0); PLATELET COUNT 94 X10^3/uL (150.0-450.0); RED BLOOD COUNT 2.21 X10^6/uL (4.7-6.0); RED CELL DISTRIBUTION WIDTH 16.4 % (11.6-16.5); WHITE BLOOD COUNT 5.4 X10^3/uL (3.6-10.0)
[2018-04-29 04:06] LABS: ALANINE AMINOTRANSFERASE 28 Units/L (12-78); ALBUMIN 2.4 g/dL (3.4-5.0); ALKALINE PHOSPHATASE 67 Units/L (46-116); ASPARTATE AMINO TRANSFERASE 22 Units/L (15-37); BLOOD UREA NITROGEN 27 mg/dL (7-18); CALCIUM 8.4 mg/dL (8.5-10.1); CARBON DIOXIDE 28.1 mmol/L (21-32); CHLORIDE 105 mmol/L (98-107); COR CA(FOR HYPOALB) 9.7 mg/dL (8.5-10.1); COR NA(FOR HYPERGLY) 143 mmol/L (136-145); CREATININE 1.22 mg/dL (0.70-1.30); SODIUM 140 mmol/L (136-145); TOTAL PROTEIN 5.4 g/dL (6.4-8.2); eGFR NON BLACK RACES > 60 (>60)
[2018-04-29 04:19] LABS: ANISOCYTOSIS SLIGHT; HYPOCHROMASIA SLIGHT; PLATELET MORPHOLOGY COMMENT NORMAL (NORMAL)
[2018-04-29] MEDS: DUONEB 0.5 MG/3 MG NEB SCH ×3 (05:10→21:00)
[2018-04-29] MEDS: TESSALON PERLES PO SCH ×3 (06:24→22:00)
--- NOTE | 2018-04-29 06:34 | RAD ---
History: Shortness of breath and history of left upper lobe lung cancer Study: Portable AP chest Comparison: Yesterday Findings: There is no significant change. There is a prominent wedge-shaped density extending from the left hilum into the left upper lobe. There is moderate elevation of the left hemidiaphragm. There is an unchanged Port-A-Cath via the right subclavian vein. The heart size appears prominent and probably enlarged. There is chronic interstitial lung disease. Partially visualized is a right shoulder prosthesis. Impression: Unchanged chronic findings of elevated left hemidiaphragm and prominent wedge-shaped density in the left upper lobe extending from the left hilum that may represent atelectasis consolidation or residual tumor. Reported By:
[2018-04-29] MEDS: VALIUM PO PRN ×2 (06:58→22:45)
[2018-04-29] MEDS ORDERED: GLUCOPHAGE ONE ×2 (06:58→19:17)
[2018-04-29] MEDS: GLUCOPHAGE PO SCH ×2 (06:58→19:20)
[2018-04-29] MEDS: NORCO 5/325 MG TAB PO PRN (06:58)
[2018-04-29] MEDS ORDERED: KLOR-CON PO PRN (07:12)
[2018-04-29] MEDS ORDERED: POTASSIUM CHL 40 MEQ/NS 0.45% 500 ML IV PRN (07:12)
[2018-04-29] MEDS ORDERED: POTASSIUM CHL 60 MEQ/NS 0.45% 500 ML IV PRN (07:12)
[2018-04-29] MEDS ORDERED: K-DUR TAB 20 MEQ PO PRN (07:12)
[2018-04-29] MEDS ORDERED: POTASSIUM CHLORIDE LIQ 20 MEQ UDC PO PRN (07:12)
[2018-04-29] MEDS ORDERED: MICRO K EXTEN CAP 10 MEQ PO PRN (07:12)
[2018-04-29] MEDS ORDERED: MAGNESIUM SULFATE 1 GRAM/100 mL PREMIX 1 GM/100 ML BAG IV PRN (07:12)
[2018-04-29] MEDS ORDERED: K-RIDER 10 MEQ/NS 100 ML 10 MEQ/100 ML BAG IV PRN (07:12)
[2018-04-29 07:59] LABS: HEMATOCRIT 21.7 % (42.0-54.0); HEMOGLOBIN 7.4 g/dL (13.5-18.0)
[2018-04-29] MEDS: PULMICORT NEB TX 0.5 MG NEB SCH ×2 (07:59→21:00)
[2018-04-29] MEDS: PROVENTIL NEB TX 0.083% 2.5MG/ 3ML NEB PRN (07:59)
[2018-04-29] MEDS: ACCUPRIL PO SCH ×2 (08:05→09:52)
[2018-04-29] MEDS: PEPCID 20 MG IV PREMIX* 20 MG/50 ML BAG IV SCH ×2 (08:05→20:39)
[2018-04-29] MEDS: MAG-OX TAB PO SCH ×2 (08:05→20:40)
[2018-04-29] MEDS: LYRICA CAP 50 MG PO SCH (08:05)
[2018-04-29] MEDS: PROTONIX INJ 40 MG VIAL IVP SCH ×2 (08:05→20:39)
[2018-04-29] MEDS: LASIX IVP SCH ×2 (08:05→20:39)
[2018-04-29] MEDS: MUCINEX EXPECTORANT PO SCH ×2 (08:05→20:39)
[2018-04-29 09:51] LABS: BAND NEUTROPHILS % 3 % (0-10)
[2018-04-29] MEDS: VITAMIN D3 PO SCH (09:54)
[2018-04-29] MEDS: LYRICA CAP 75 MG PO SCH ×2 (10:35→20:40)
[2018-04-29 12:45] LABS: HEMATOCRIT 21.7 % (42.0-54.0); HEMOGLOBIN 7.3 g/dL (13.5-18.0)
[2018-04-29] MEDS ORDERED: NS 500 ML IV 500 ML ONE (12:59)
--- NOTE | 2018-04-29 13:06 | DR.PROGNOT ---
Hospital Progress Notes - Progress Note for Day of: Progress Note Date: 04/29/18 - Chief Complaint Chief Complaint: no more bleeding today . Pt is more alert and comfortable . colonoscopy showed several colon polyps in the Rt colon and large diverticuli. no bleeding in the colon , no angiodyslpasia , IBD or neoplasm. - Past Medical Family Social History Past Med/Fam/Surg Hx: No changes since H&P Allergies: Allergies No Known Drug Allergies Allergy (Verified 04/23/18 17:31) - Review Of Systems ROS: No change since H&P - Vital Signs Vital Signs: Temperature 98.3 F Pulse Rate [Left] 86 Pulse Rate 82 Respiratory Rate 17 Blood Pressure [Left Arm] 159/55 Blood Pressure [Right Arm] 96/51 Blood Pressure 123/71 O2 Sat by Pulse Oximetry 96 - Physical Exam Oriented: Normal Eyes: Normal Ear: Normal Nose: Normal Throat: Normal Respiratory: Generalized, Rhonchi, OTHER (CRACKLES ) Cardiovascular: Normal : Normal GI:Auscultation: Normal GI:Palpation: Normal GI: Tenderness: Normal Skin: Decreased Turgur Musculoskeletal: Back:Lumbar Psychiatric: Anxiety Affect: Anxious Speech Pattern: Clear, Appropriate - Laboratory and Diagnostics Result Diagrams: 04/29/18 12:26 04/29/18 03:35 Labs: 04/24/18 07:42 Stool Stool Culture - Final 04/24/18 07:42 Stool - Final 04/24/18 11:40 Sputum - Expectorated Sputum Sputum Culture - Final 04/24/18 11:40 Sputum - Expectorated Sputum - Final Laboratory WBC 5.4 X10^3/uL (3.6-10.0) 04/29/18 03:35 RBC 2.21 X10^6/uL (4.7-6.0) L 04/29/18 03:35 Hgb 7.3 g/dL (13.5-18.0) L 04/29/18 12:26 Hct 21.7 % (42.0-54.0) L 04/29/18 12:26 MCV 93.8 fL (80.0-100.0) 04/29/18 03:35 MCH 31.7 pg (27.0-34.0) 04/29/18 03:35 MCHC 33.8 g/dL (33.0-35.0) 04/29/18 03:35 RDW 16.4 % (11.6-16.5) 04/29/18 03:35 Plt Count 94 X10^3/uL (150.0-450.0) L 04/29/18 03:35 Plt Count Comment Decreased (ADEQUATE) 04/29/18 03:35 MPV 8.6 fL (7.4-11.0) 04/29/18 03:35 Neut % (Auto) 83.4 % (42.0-75.0) H 04/29/18 03:35 Lymph % (Auto) 6.5 % (21.0-51.0) L 04/29/18 03:35 [place] % (Auto) 7.7 % (0.0-13.0) 04/29/18 03:35 Eos % (Auto) 2.0 % (0.9-2.9) 04/29/18 03:35 Baso % (Auto) 0.4 % (0.2-1.0) 04/29/18 03:35 Neut # (Auto) 4.5 x10^3/uL (2.2-4.8) 04/29/18 03:35 Lymph # (Auto) 0.3 X10^3/uL (1.3-2.9) L 04/29/18 03:35 [place] # (Auto) 0.4 x10^3/uL (0.3-0.8) 04/29/18 03:35 Eos # (Auto) 0.1 x10^3/uL (0.0-0.2) 04/29/18 03:35 Baso # (Auto) 0.0 X10^3/uL (0.0-0.1) 04/29/18 03:35 Absolute Nucleated RBC 0.1 /100WBC 04/29/18 03:35 Total Counted 100 04/28/18 07:28 Neutrophils % (Manual) 85 % (39-76) H 04/28/18 07:28 Band Neutrophils % 3 % (0-10) 04/28/18 07:28 Lymphocytes % (Manual) 10 % (13-43) L 04/28/18 07:28 Monocytes % (Manual) 2 % (4-9) L 04/28/18 07:28 Plt Morphology Comment Normal (NORMAL) 04/29/18 03:35 RBC Morphology Abnormal (NORMAL) 04/29/18 03:35 Hypochromasia Slight A 04/29/18 03:35 Anisocytosis Slight A 04/29/18 03:35 D-Dimer 655 ng/mL (0-400) H* 04/23/18 19:00 Sample Site Rr 04/24/18 13:05 ABG pH 7.460 (7.35-7.45) H 04/24/18 13:05 ABG pCO2 38.0 mmHg (35.0-45.0) 04/24/18 13:05 ABG pO2 110.0 mmHg (80.0-100.0) H 04/24/18 13:05 ABG HCO3 27.0 mmol/L (22-26) H 04/24/18 13:05 ABG O2 Saturation 99.0 % (90-100) 04/24/18 13:05 ABG Base Excess 3.1 mmol/L (-2.0-2.0) H 04/24/18 13:05 Gerardo Test Pos 04/24/18 13:05 A-a Gradient 42.0 mmHg 04/24/18 13:05 FiO2 28.0 04/24/18 13:05 Blood Gas Comments Pt nigel well. cdn 04/24/18 13:05 Sodium 140 mmol/L (136-145) 04/29/18 03:35 Corrected Sodium 143 mmol/L (136-145) 04/29/18 03:35 Potassium 3.8 mmol/L (3.5-5.1) 04/29/18 03:35 Chloride 105 mmol/L (98-107) 04/29/18 03:35 Carbon Dioxide 28.1 mmol/L (21-32) 04/29/18 03:35 BUN 27 mg/dL (7-18) H 04/29/18 03:35 Creatinine 1.22 mg/dL (0.70-1.30) 04/29/18 03:35 Est GFR (MDRD) Af Amer > 60 (>60) 04/29/18 03:35 Est GFR (MDRD) Non-Af > 60 (>60) 04/29/18 03:35 Glucose 226 mg/dL (65-99) H 04/29/18 03:35 POC Glucose (mg/dL) 232 mg/dL (65-99) H 04/29/18 11:32 Calcium 8.4 mg/dL (8.5-10.1) L 04/29/18 03:35 Corrected Calcium 9.7 mg/dL (8.5-10.1) 04/29/18 03:35 Magnesium 1.9 mg/dL (1.7-2.9) 04/29/18 03:35 Iron 36 ug/dL (50-175) L 04/25/18 04:52 Transferrin 200 mg/dL (202-364) L 04/25/18 04:52 Ferritin 70 ng/mL (26-388) 04/25/18 04:52 Total Bilirubin 0.50 mg/dL (0.2-1.0) 04/29/18 03:35 AST 22 Units/L (15-37) 04/29/18 03:35 ALT 28 Units/L (12-78) 04/29/18 03:35 Alkaline Phosphatase 67 Units/L (46-116) 04/29/18 03:35 B-Natriuretic Peptide 114 pg/mL (0-79) H 04/28/18 07:28 Total Protein 5.4 g/dL (6.4-8.2) L 04/29/18 03:35 Albumin 2.4 g/dL (3.4-5.0) L 04/29/18 03:35 Globulin 3.0 g/dL (2.5-4.5) 04/29/18 03:35 Albumin/Globulin Ratio 0.8 Ratio (1.1-2.1) L 04/29/18 03:35 Vitamin B12 291 pg/mL (193-986) 04/25/18 04:52 Folate > 20.0 ng/mL (>8.6) 04/25/18 04:52 Specimen Type Catherized urine 04/23/18 22:27 Urine Color Pale yellow (YELLOW) 04/23/18 22:27 Urine Appearance Clear (CLEAR) 04/23/18 22:27 Urine pH 6.0 (5.0 - 8.0) 04/23/18 22:27 Ur Specific [place] 1.005 (1.000-1.030) 04/23/18 22:27 Urine Protein 2+ (NEGATIVE) 04/23/18 22:27 Urine Glucose (UA) Negative (NEGATIVE) 04/23/18 22:27 Urine Ketones Negative (NEGATIVE) 04/23/18 22:27 Urine Occult Blood 1+ (NEGATIVE) 04/23/18 22:27 Urine Nitrite Negative (NEGATIVE) 04/23/18 22:27 Urine Bilirubin Negative (NEGATIVE) 04/23/18 22:27 Urine Urobilinogen Normal (NORMAL) 04/23/18 22:27 Ur Leukocyte Esterase 1+ (NEGATIVE) 04/23/18 22:27 Urine RBC 3-5 /HPF (NONE SEEN) 04/23/18 22:27 Urine WBC 3-5 /HPF (NONE SEEN) 04/23/18 22:27 Ur Squamous Epith Cells Rare /HPF (NEGATIVE) 04/23/18 22:27 Urine Bacteria Negative /HPF (NEGATIVE) 04/23/18 22:27 Hyaline Casts Few /LPF (NEGATIVE) 04/23/18 22:27 Ur Culture Indicated? No/not indicated 04/23/18 22:27 Stool Description 100 g. black/liquid 04/27/18 02:12 Stl Occult Blood (IFOB) Positive (NEGATIVE) A 04/27/18 02:12 Stool for White Cells Negative (NEGATIVE) 04/24/18 07:42 Tissue Pathology To follow 04/28/18 11:32 Blood Type O NEGATIVE 04/27/18 19:37 Antibody Screen Negative 04/27/18 19:37 Crossmatch See Detail 04/27/18 19:37 - Assessment and Plan 1: anemia with GI blood loss ( no bleeding now ). diverticulosis .. Rt colon polyps . Gastritis . will observe for more bleeding . - Problem Patient Problems: Patient Problems Fluid overload (Acute) E87.70 Respiratory distress (Acute) R06.03 Dehydration (Acute) E86.0 Severe anemia (Acute) D64.9 Elevated d-dimer (Acute) R79.89 COPD (chronic obstructive pulmonary disease) (Chronic) J44.9 Hx of cancer of lung (Chronic) Z85.118
[2018-04-29] MEDS: NS 1/2 1000 ML IV 1,000 ML IV SCH (13:08)
[2018-04-29] MEDS ORDERED: BENADRYL INJ 50 MG VIAL IVP ONE (13:15)
[2018-04-29] MEDS ORDERED: TYLENOL 325 MG TAB PO ONE (13:15)
[2018-04-29] MEDS: SNACK - Diabetic Appropriate PO SCH (20:00)
[2018-04-29] MEDS: FLOMAX PO SCH (20:39)
[2018-04-29] MEDS: ZOCOR TAB 40 MG PO SCH (20:40)
[2018-04-30 01:18] LABS: HEMATOCRIT 25.9 % (42.0-54.0); HEMOGLOBIN 8.9 g/dL (13.5-18.0)
[2018-04-30] MEDS: NORCO 5/325 MG TAB PO PRN ×4 (01:26→21:05)
[2018-04-30] MEDS: ATIVAN TAB 0.5 MG PO PRN (02:56)
[2018-04-30] MEDS: DUONEB 0.5 MG/3 MG NEB SCH ×3 (04:09→20:27)
[2018-04-30] MEDS: TESSALON PERLES PO SCH ×3 (05:44→22:17)
[2018-04-30 06:02] LABS: BASOPHILS % (AUTO) 0.8 % (0.2-1.0); EOSINOPHILS # (AUTO) 0.2 x10^3/uL (0.0-0.2); EOSINOPHILS % (AUTO) 3.1 % (0.9-2.9); HEMOGLOBIN 9.3 g/dL (13.5-18.0); LYMPHOCYTES # (AUTO) 0.3 X10^3/uL (1.3-2.9); LYMPHOCYTES % (AUTO) 5.6 % (21.0-51.0); MEAN CORPUSCULAR HEMOGLOBIN 31.6 pg (27.0-34.0); MEAN CORPUSCULAR HGB CONC 34.4 g/dL (33.0-35.0); MEAN CORPUSCULAR VOLUME 91.8 fL (80.0-100.0); MEAN PLATELET VOLUME 8.2 fL (7.4-11.0); MONOCYTES # (AUTO) 0.5 x10^3/uL (0.3-0.8); MONOCYTES % (AUTO) 9.2 % (0.0-13.0); NEUTROPHILS # (AUTO) 4.4 x10^3/uL (2.2-4.8); NEUTROPHILS % (AUTO) 81.3 % (42.0-75.0); PLATELET COUNT 124 X10^3/uL (150.0-450.0); RED BLOOD COUNT 2.95 X10^6/uL (4.7-6.0); WHITE BLOOD COUNT 5.4 X10^3/uL (3.6-10.0)
[2018-04-30 06:13] LABS: ALANINE AMINOTRANSFERASE 32 Units/L (12-78); ALBUMIN 2.7 g/dL (3.4-5.0); ALKALINE PHOSPHATASE 65 Units/L (46-116); ASPARTATE AMINO TRANSFERASE 23 Units/L (15-37); BLOOD UREA NITROGEN 24 mg/dL (7-18); CALCIUM 8.9 mg/dL (8.5-10.1); CHLORIDE 107 mmol/L (98-107); COR CA(FOR HYPOALB) 9.9 mg/dL (8.5-10.1); COR NA(FOR HYPERGLY) 144 mmol/L (136-145); CREATININE 1.24 mg/dL (0.70-1.30); SODIUM 142 mmol/L (136-145); TOTAL PROTEIN 6.1 g/dL (6.4-8.2); eGFR NON BLACK RACES > 60 (>60)
--- NOTE | 2018-04-30 06:55 | RAD ---
History: Shortness of breath Study: Portable AP chest Comparison: Yesterday Findings: There is no interval change. There is chronic elevation of the left hemidiaphragm and a large wedge-shaped density extending from the left hilum peripherally in the left upper lobe. There is chronic interstitial lung disease. There is a right sided subclavian Port-A-Cath unchanged. The heart size is prominent. Conclusion unchanged chronic findings as described Reported By:
[2018-04-30] MEDS ORDERED: GLUCOPHAGE ONE ×2 (07:33→16:28)
[2018-04-30] MEDS: GLUCOPHAGE PO SCH ×2 (07:45→16:32)
[2018-04-30] MEDS: PROVENTIL NEB TX 0.083% 2.5MG/ 3ML NEB PRN ×2 (08:05→14:45)
[2018-04-30] MEDS: PROTONIX INJ 40 MG VIAL IVP SCH ×2 (08:21→20:22)
[2018-04-30] MEDS: ACCUPRIL PO SCH (08:21)
[2018-04-30] MEDS: LASIX IVP SCH ×2 (08:21→20:21)
[2018-04-30] MEDS: VITAMIN D3 PO SCH (08:22)
[2018-04-30] MEDS: LYRICA CAP 75 MG PO SCH ×2 (08:22→20:22)
[2018-04-30] MEDS: MAG-OX TAB PO SCH ×2 (08:22→20:23)
[2018-04-30] MEDS: MUCINEX EXPECTORANT PO SCH ×2 (08:22→20:22)
[2018-04-30] MEDS: PEPCID 20 MG IV PREMIX* 20 MG/50 ML BAG IV SCH ×2 (08:23→20:21)
--- NOTE | 2018-04-30 08:24 | PCM.PROG ---
Progress Note - Progress Note for Day of Date of Exam: 04/29/18 - Subjective Subjective: WAS ADMITTED FOR SYMPTOMATIC ANEMIA, DEHYDRATION, AND COPD. HE HAS RECEIVED 5 UNITS OF PACKED RED BLOOD CELLS SINCE ADMISSION. TODAY, HE IS ALERT AND ORIENTED, LYING IN BED ON MORNING ROUNDS. HE CONTINUES WITH WEAKNESS, DIFFUSE ABDOMINAL PAIN, AND SHORTNESS OF BREATH TODAY. HE ALSO REPORTS PAIN TO BILATERAL UPPER AND LOWER EXTREMITIES. HE REPORTS THAT IT FEELS LIKE NEUROPATHY. ON EXAMINATION, HEART IS REGULAR IN RATE AND RHYTHM. BILATERAL LUNGS ARE NOTED WITH RHONCHI THROUGHOUT. ABDOMEN IS ROUND, SOFT, AND NOTED WITH MILD, DIFFUSE TENDERNESS. NORMAL BOWEL SOUNDS NOTED IN ALL QUADRANTS. HIS VITALS THIS MORNING ARE 98.6-211-75-100%-174/96. LABS WERE OBTAINED. ABNORMAL LAB VALUES INCLUDE THE FOLLOWING: RBC 2.21, HGB 7.0, HCT 20.7, PLT COUNT 94, BUN 27, GLUCOSE 226, CALCIUM 8.4, TOTAL PROTEIN 5.4, ALBUMIN 2.4. A COLONOSCOPY WAS PERFORMED YESTERDAY AND FINDINGS INCLUDE THE FOLLOWING: DIVERTICULOSIS, SEVERAL POLYPS OF THE ASCENDING COLON AND HEPATIC FLEXURE THAT LOOS BENIGN. NO ANGIODYSPHLASIA OR INFLAMMATORY CHANGES. TODAY, WE WILL TRANSFUSE TWO UNITS OF PACKED RED BLOOD CELLS AND INCREASE LYRICA TO 75MG PO BID. OTHERWISE, WE PLAN TO FOLLOW UP WITH AM LABS AND CONTINUE TO MONITOR. - Past Medical Family Social History Past Med/Fam/Surg Hx: No changes since H&P Allergies: Allergies No Known Drug Allergies Allergy (Verified 04/23/18 17:31) - Review of Systems ROS: No change since H&P - Vital Signs and I&O's Vital Signs: Temperature 98.2 F Pulse Rate [Left] 101 Pulse Rate 87 Respiratory Rate 19 Blood Pressure [Left Arm] 159/55 Blood Pressure [Right Arm] 136/80 Blood Pressure 139/75 O2 Sat by Pulse Oximetry 96 Intake and Output: Intake & Output 04/27/18 04/28/18 04/29/18 04/30/18 11:59 11:59 11:59 11:59 Intake Total 3465 / 3465 5014 / 5014 2130 / 2130 3237 / 3237 Output Total 1045 / 1045 1400 / 1400 1250 / 1250 3200 / 3200 Balance 2420 / 2420 3614 / 3614 880 / 880 37 / 37 - Physical Exam Oriented: Normal Eyes: Normal Ear: Normal Nose: Normal Throat: Normal Respiratory: Generalized, Rhonchi Cardiovascular: Normal : Normal Auscultation: Bowel Sounds: Normal Palpation: Normal Tenderness: Normal Skin: Decreased Turgur Musculoskeletal: Back:Lumbar Psychiatric: Anxiety Affect: Anxious Speech Pattern: Clear, Appropriate - Laboratory and Diagnostics Result Diagrams: 04/30/18 04:51 04/30/18 04:51 Labs: 04/24/18 07:42 Stool Stool Culture - Final 04/24/18 07:42 Stool - Final 04/24/18 11:40 Sputum - Expectorated Sputum Sputum Culture - Final 04/24/18 11:40 Sputum - Expectorated Sputum - Final Laboratory WBC 5.4 X10^3/uL (3.6-10.0) 04/30/18 04:51 RBC 2.95 X10^6/uL (4.7-6.0) L 04/30/18 04:51 Hgb 9.3 g/dL (13.5-18.0) L 04/30/18 04:51 Hct 27.0 % (42.0-54.0) L 04/30/18 04:51 MCV 91.8 fL (80.0-100.0) 04/30/18 04:51 MCH 31.6 pg (27.0-34.0) 04/30/18 04:51 MCHC 34.4 g/dL (33.0-35.0) 04/30/18 04:51 RDW 16.0 % (11.6-16.5) 04/30/18 04:51 Plt Count 124 X10^3/uL (150.0-450.0) L 04/30/18 04:51 Plt Count Comment Decreased (ADEQUATE) 04/29/18 03:35 MPV 8.2 fL (7.4-11.0) 04/30/18 04:51 Neut % (Auto) 81.3 % (42.0-75.0) H 04/30/18 04:51 Lymph % (Auto) 5.6 % (21.0-51.0) L 04/30/18 04:51 [place] % (Auto) 9.2 % (0.0-13.0) 04/30/18 04:51 Eos % (Auto) 3.1 % (0.9-2.9) H 04/30/18 04:51 Baso % (Auto) 0.8 % (0.2-1.0) 04/30/18 04:51 Neut # (Auto) 4.4 x10^3/uL (2.2-4.8) 04/30/18 04:51 Lymph # (Auto) 0.3 X10^3/uL (1.3-2.9) L 04/30/18 04:51 [place] # (Auto) 0.5 x10^3/uL (0.3-0.8) 04/30/18 04:51 Eos # (Auto) 0.2 x10^3/uL (0.0-0.2) 04/30/18 04:51 Baso # (Auto) 0.0 X10^3/uL (0.0-0.1) 04/30/18 04:51 Absolute Nucleated RBC 0.1 /100WBC 04/30/18 04:51 Total Counted 100 04/28/18 07:28 Neutrophils % (Manual) 85 % (39-76) H 04/28/18 07:28 Band Neutrophils % 3 % (0-10) 04/28/18 07:28 Lymphocytes % (Manual) 10 % (13-43) L 04/28/18 07:28 Monocytes % (Manual) 2 % (4-9) L 04/28/18 07:28 Plt Morphology Comment Normal (NORMAL) 04/29/18 03:35 RBC Morphology Abnormal (NORMAL) 04/29/18 03:35 Hypochromasia Slight A 04/29/18 03:35 Anisocytosis Slight A 04/29/18 03:35 D-Dimer 655 ng/mL (0-400) H* 04/23/18 19:00 Sample Site Rr 04/24/18 13:05 ABG pH 7.460 (7.35-7.45) H 04/24/18 13:05 ABG pCO2 38.0 mmHg (35.0-45.0) 04/24/18 13:05 ABG pO2 110.0 mmHg (80.0-100.0) H 04/24/18 13:05 ABG HCO3 27.0 mmol/L (22-26) H 04/24/18 13:05 ABG O2 Saturation 99.0 % (90-100) 04/24/18 13:05 ABG Base Excess 3.1 mmol/L (-2.0-2.0) H 04/24/18 13:05 Gerardo Test Pos 04/24/18 13:05 A-a Gradient 42.0 mmHg 04/24/18 13:05 FiO2 28.0 04/24/18 13:05 Blood Gas Comments Pt nigel well. cdn 04/24/18 13:05 Sodium 142 mmol/L (136-145) 04/30/18 04:51 Corrected Sodium 144 mmol/L (136-145) 04/30/18 04:51 Potassium 4.1 mmol/L (3.5-5.1) 04/30/18 04:51 Chloride 107 mmol/L (98-107) 04/30/18 04:51 Carbon Dioxide 29.0 mmol/L (21-32) 04/30/18 04:51 BUN 24 mg/dL (7-18) H 04/30/18 04:51 Creatinine 1.24 mg/dL (0.70-1.30) 04/30/18 04:51 Est GFR (MDRD) Af Amer > 60 (>60) 04/30/18 04:51 Est GFR (MDRD) Non-Af > 60 (>60) 04/30/18 04:51 Glucose 175 mg/dL (65-99) H 04/30/18 04:51 POC Glucose (mg/dL) 156 mg/dL (65-99) H 04/30/18 05:30 Calcium 8.9 mg/dL (8.5-10.1) 04/30/18 04:51 Corrected Calcium 9.9 mg/dL (8.5-10.1) 04/30/18 04:51 Magnesium 1.9 mg/dL (1.7-2.9) 04/29/18 03:35 Iron 36 ug/dL (50-175) L 04/25/18 04:52 TIBC 253 ug/dL (250-450) 04/29/18 03:35 Transferrin 200 mg/dL (202-364) L 04/25/18 04:52 Ferritin 70 ng/mL (26-388) 04/25/18 04:52 Total Bilirubin 0.80 mg/dL (0.2-1.0) 04/30/18 04:51 AST 23 Units/L (15-37) 04/30/18 04:51 ALT 32 Units/L (12-78) 04/30/18 04:51 Alkaline Phosphatase 65 Units/L (46-116) 04/30/18 04:51 B-Natriuretic Peptide 114 pg/mL (0-79) H 04/28/18 07:28 Total Protein 6.1 g/dL (6.4-8.2) L 04/30/18 04:51 Albumin 2.7 g/dL (3.4-5.0) L 04/30/18 04:51 Globulin 3.4 g/dL (2.5-4.5) 04/30/18 04:51 Albumin/Globulin Ratio 0.8 Ratio (1.1-2.1) L 04/30/18 04:51 Vitamin B12 291 pg/mL (193-986) 04/25/18 04:52 Folate > 20.0 ng/mL (>8.6) 04/25/18 04:52 Specimen Type Catherized urine 04/23/18 22:27 Urine Color Pale yellow (YELLOW) 04/23/18 22: Urine Appearance Clear (CLEAR) 04/23/18 22: Urine pH 6.0 (5.0 - 8.0) 04/23/18 22: Ur Specific [place] 1.005 (1.000-1.030) 04/23/18 22: Urine Protein 2+ (NEGATIVE) 04/23/18 22: Urine Glucose (UA) Negative (NEGATIVE) 04/23/18 22: Urine Ketones Negative (NEGATIVE) 04/23/18 22: Urine Occult Blood 1+ (NEGATIVE) 04/23/18 22: Urine Nitrite Negative (NEGATIVE) 04/23/18 22: Urine Bilirubin Negative (NEGATIVE) 04/23/18 22: Urine Urobilinogen Normal (NORMAL) 04/23/18 22: Ur Leukocyte Esterase 1+ (NEGATIVE) 04/23/18 22:27 Urine RBC 3-5 /HPF (NONE SEEN) 04/23/18 22:27 Urine WBC 3-5 /HPF (NONE SEEN) 04/23/18 22:27 Ur Squamous Epith Cells Rare /HPF (NEGATIVE) 04/23/18 22:27 Urine Bacteria Negative /HPF (NEGATIVE) 04/23/18 22:27 Hyaline Casts Few /LPF (NEGATIVE) 04/23/18 22:27 Ur Culture Indicated? No/not indicated 04/23/18 22:27 Stool Description 100 g. black/liquid 04/27/18 02:12 Stl Occult Blood (IFOB) Positive (NEGATIVE) A 04/27/18 02:12 Stool for White Cells Negative (NEGATIVE) 04/24/18 07:42 Tissue Pathology To follow 04/28/18 11:32 Blood Type O NEGATIVE 04/27/18 19:37 Antibody Screen Negative 04/27/18 19:37 Crossmatch See Detail 04/27/18 19:37 - Plan (1) Severe anemia Status: Acute Plan: TRANSFUSE TWO UNITS PRBC, CONTINUE TO MONITOR (2) COPD (chronic obstructive pulmonary disease) Status: Chronic Qualifiers: COPD type: unspecified COPD Qualified Code(s): J44.9 - Chronic obstructive pulmonary disease, unspecified (3) Fluid overload Status: Acute Qualifiers: Hypervolemia type: unspecified Qualified Code(s): E87.70 - Fluid overload, unspecified Plan: CONTINUE LASIX, MONITOR CHEST XRAY
[2018-04-30] MEDS: VALIUM PO PRN ×2 (08:35→16:32)
[2018-04-30] MEDS: ROBITUSSIN DM PO PRN ×2 (08:35→20:21)
[2018-04-30] MEDS: PULMICORT NEB TX 0.5 MG NEB SCH ×2 (09:53→20:27)
[2018-04-30] MEDS ORDERED: LASIX IVP SCH (10:00)
[2018-04-30] MEDS ORDERED: LASIX IVP NR (11:00)
[2018-04-30] MEDS: VISTARIL PO PRN (12:10)
[2018-04-30] MEDS ORDERED: NS 1/2 1000 ML IV 1,000 ML ONE (14:50)
[2018-04-30] MEDS: NS 1/2 1000 ML IV 1,000 ML IV SCH (14:52)
[2018-04-30] MEDS ORDERED: HumuLIN R ONE (16:28)
[2018-04-30] MEDS: HumuLIN R SUBCUT PRN ×2 (16:31→16:36)
[2018-04-30] MEDS: SNACK - Diabetic Appropriate PO SCH (20:00)
[2018-04-30] MEDS: FLOMAX PO SCH (20:22)
[2018-04-30] MEDS: ZOCOR TAB 40 MG PO SCH (20:22)
[2018-04-30] MEDS: RESTORIL CAP 15 MG PO PRN (21:05)
[2018-05-01] MEDS: VISTARIL PO PRN (00:28)
[2018-05-01] MEDS: NORCO 5/325 MG TAB PO PRN ×3 (03:08→20:52)
[2018-05-01] MEDS: VALIUM PO PRN ×2 (04:56→16:38)
[2018-05-01] MEDS: DUONEB 0.5 MG/3 MG NEB SCH ×3 (05:02→20:40)
--- NOTE | 2018-05-01 05:08 | RAD ---
Chest, 1 view Indication: Shortness of breath. Comparison: 04/30/2018. Findings: There is unchanged cardiac silhouette enlargement and curvilinear density overlying the left mid lung. There is chronic elevation of left hemidiaphragm. Diffuse interstitial prominence of the lungs is unchanged. No new infiltrates or large effusion. No pneumothorax. Impression: No significant change from prior. Reported By:
[2018-05-01 05:31] LABS: BASOPHILS # (AUTO) 0.1 X10^3/uL (0.0-0.1); BASOPHILS % (AUTO) 0.8 % (0.2-1.0); EOSINOPHILS # (AUTO) 0.2 x10^3/uL (0.0-0.2); HEMATOCRIT 27.2 % (42.0-54.0); HEMOGLOBIN 9.5 g/dL (13.5-18.0); LYMPHOCYTES # (AUTO) 0.3 X10^3/uL (1.3-2.9); LYMPHOCYTES % (AUTO) 4.5 % (21.0-51.0); MEAN CORPUSCULAR HEMOGLOBIN 31.7 pg (27.0-34.0); MEAN CORPUSCULAR HGB CONC 34.8 g/dL (33.0-35.0); MEAN CORPUSCULAR VOLUME 90.9 fL (80.0-100.0); MEAN PLATELET VOLUME 8.2 fL (7.4-11.0); MONOCYTES # (AUTO) 0.7 x10^3/uL (0.3-0.8); MONOCYTES % (AUTO) 9.6 % (0.0-13.0); NEUTROPHILS # (AUTO) 5.6 x10^3/uL (2.2-4.8); NEUTROPHILS % (AUTO) 82.1 % (42.0-75.0); PLATELET COUNT 140 X10^3/uL (150.0-450.0); RED BLOOD COUNT 2.99 X10^6/uL (4.7-6.0); RED CELL DISTRIBUTION WIDTH 16.2 % (11.6-16.5); WHITE BLOOD COUNT 6.8 X10^3/uL (3.6-10.0)
[2018-05-01 05:47] LABS: ALANINE AMINOTRANSFERASE 29 Units/L (12-78); ALBUMIN 2.6 g/dL (3.4-5.0); ALKALINE PHOSPHATASE 58 Units/L (46-116); ASPARTATE AMINO TRANSFERASE 21 Units/L (15-37); BLOOD UREA NITROGEN 23 mg/dL (7-18); CALCIUM 8.7 mg/dL (8.5-10.1); CARBON DIOXIDE 33.3 mmol/L (21-32); CHLORIDE 104 mmol/L (98-107); COR CA(FOR HYPOALB) 9.8 mg/dL (8.5-10.1); COR NA(FOR HYPERGLY) 142 mmol/L (136-145); CREATININE 0.98 mg/dL (0.70-1.30); SODIUM 141 mmol/L (136-145); TOTAL PROTEIN 6.2 g/dL (6.4-8.2); eGFR NON BLACK RACES > 60 (>60)
[2018-05-01] MEDS: TESSALON PERLES PO SCH ×3 (05:50→22:00)
[2018-05-01] MEDS: HumuLIN R SUBCUT PRN ×2 (07:09→16:37)
[2018-05-01] MEDS ORDERED: GLUCOPHAGE ONE ×2 (07:56→16:29)
[2018-05-01] MEDS: PROVENTIL NEB TX 0.083% 2.5MG/ 3ML NEB PRN (08:31)
[2018-05-01] MEDS: PULMICORT NEB TX 0.5 MG NEB SCH ×2 (08:31→20:40)
[2018-05-01] MEDS: GLUCOPHAGE PO SCH ×2 (08:50→16:36)
[2018-05-01] MEDS: ACCUPRIL PO SCH (08:51)
[2018-05-01] MEDS: LASIX IVP SCH ×2 (08:52→20:49)
[2018-05-01] MEDS: LYRICA CAP 75 MG PO SCH ×2 (08:52→20:50)
[2018-05-01] MEDS: MUCINEX EXPECTORANT PO SCH ×2 (08:53→20:51)
[2018-05-01] MEDS: PEPCID 20 MG IV PREMIX* 20 MG/50 ML BAG IV SCH ×2 (08:53→20:49)
[2018-05-01] MEDS: MAG-OX TAB PO SCH ×2 (08:53→20:51)
[2018-05-01] MEDS: VITAMIN D3 PO SCH (08:54)
[2018-05-01] MEDS: PROTONIX INJ 40 MG VIAL IVP SCH ×2 (08:54→20:51)
[2018-05-01] MEDS: NS 1/2 1000 ML IV 1,000 ML IV SCH (14:03)
[2018-05-01] MEDS: ZOCOR TAB 40 MG PO SCH (20:50)
[2018-05-01] MEDS: FLOMAX PO SCH (20:50)
[2018-05-01] MEDS: RESTORIL CAP 15 MG PO PRN (20:50)
[2018-05-01] MEDS: SNACK - Diabetic Appropriate PO SCH (20:54)
[2018-05-02] MEDS: NORCO 5/325 MG TAB PO PRN ×3 (03:15→23:21)
[2018-05-02] MEDS: VISTARIL PO PRN (05:05)
[2018-05-02] MEDS: DUONEB 0.5 MG/3 MG NEB SCH ×4 (05:06→21:07)
[2018-05-02 05:33] LABS: BASOPHILS # (AUTO) 0.1 X10^3/uL (0.0-0.1); EOSINOPHILS # (AUTO) 0.2 x10^3/uL (0.0-0.2); EOSINOPHILS % (AUTO) 3.5 % (0.9-2.9); HEMATOCRIT 25.5 % (42.0-54.0); HEMOGLOBIN 8.7 g/dL (13.5-18.0); LYMPHOCYTES # (AUTO) 0.3 X10^3/uL (1.3-2.9); LYMPHOCYTES % (AUTO) 5.7 % (21.0-51.0); MEAN CORPUSCULAR HEMOGLOBIN 31.1 pg (27.0-34.0); MEAN CORPUSCULAR HGB CONC 34.3 g/dL (33.0-35.0); MEAN CORPUSCULAR VOLUME 90.9 fL (80.0-100.0); MEAN PLATELET VOLUME 8.2 fL (7.4-11.0); MONOCYTES # (AUTO) 0.6 x10^3/uL (0.3-0.8); MONOCYTES % (AUTO) 12.4 % (0.0-13.0); NEUTROPHILS % (AUTO) 77.4 % (42.0-75.0); PLATELET COUNT 152 X10^3/uL (150.0-450.0); RED BLOOD COUNT 2.81 X10^6/uL (4.7-6.0); RED CELL DISTRIBUTION WIDTH 15.9 % (11.6-16.5); WHITE BLOOD COUNT 5.1 X10^3/uL (3.6-10.0)
[2018-05-02 05:46] LABS: ALANINE AMINOTRANSFERASE 25 Units/L (12-78); ALBUMIN 2.5 g/dL (3.4-5.0); ALKALINE PHOSPHATASE 50 Units/L (46-116); ASPARTATE AMINO TRANSFERASE 18 Units/L (15-37); BLOOD UREA NITROGEN 28 mg/dL (7-18); CALCIUM 8.9 mg/dL (8.5-10.1); CHLORIDE 103 mmol/L (98-107); COR CA(FOR HYPOALB) 10.1 mg/dL (8.5-10.1); COR NA(FOR HYPERGLY) 143 mmol/L (136-145); CREATININE 0.99 mg/dL (0.70-1.30); SODIUM 141 mmol/L (136-145); eGFR NON BLACK RACES > 60 (>60)
[2018-05-02] MEDS: TESSALON PERLES PO SCH ×3 (05:49→21:30)
--- NOTE | 2018-05-02 06:13 | RAD ---
Examination: Portable AP chest History: SOB, lung cancer Comparison reference 05/01/2018 Findings: Stable cardiac enlargement, left diaphragm elevation. There is no change in appearance of heart, lungs or mediastinum. No large pleural effusion or developing pneumothorax. Right subclavian catheter terminates in SVC. Impression: No change since 05/01/2018. Reported By:
[2018-05-02] MEDS ORDERED: TUSSIONEX PENNKINETIC SUSP ONE (08:24)
[2018-05-02] MEDS: TUSSIONEX PENNKINETIC SUSP PO PRN ×2 (08:27→23:22)
[2018-05-02] MEDS: PROVENTIL NEB TX 0.083% 2.5MG/ 3ML NEB PRN (08:30)
[2018-05-02] MEDS: PULMICORT NEB TX 0.5 MG NEB SCH ×2 (08:30→21:07)
[2018-05-02] MEDS ORDERED: GLUCOPHAGE ONE ×2 (08:33→16:14)
[2018-05-02] MEDS: GLUCOPHAGE PO SCH ×2 (09:00→16:27)
[2018-05-02] MEDS: ACCUPRIL PO SCH (09:00)
[2018-05-02] MEDS: MAG-OX TAB PO SCH ×2 (09:01→20:48)
[2018-05-02] MEDS: MUCINEX EXPECTORANT PO SCH ×2 (09:01→20:49)
[2018-05-02] MEDS: LYRICA CAP 75 MG PO SCH ×2 (09:01→21:30)
[2018-05-02] MEDS: PEPCID 20 MG IV PREMIX* 20 MG/50 ML BAG IV SCH ×2 (09:02→20:47)
[2018-05-02] MEDS: PROTONIX INJ 40 MG VIAL IVP SCH ×2 (09:02→20:47)
[2018-05-02] MEDS: VITAMIN D3 PO SCH ×2 (09:03→11:00)
[2018-05-02] MEDS: LASIX IVP SCH ×2 (09:03→21:30)
[2018-05-02] MEDS: HumuLIN R SUBCUT PRN ×3 (12:08→20:51)
[2018-05-02] MEDS: NS 1/2 1000 ML IV 1,000 ML IV SCH (14:26)
[2018-05-02] MEDS ORDERED: NS 1/2 1000 ML IV 1,000 ML ONE (14:27)
--- NOTE | 2018-05-02 18:43 | PCM.PROG ---
Progress Note - Progress Note for Day of Date of Exam: 04/30/18 - Subjective Subjective: WAS ADMITTED FOR SYMPTOMATIC ANEMIA, DEHYDRATION, AND COPD. HE HAS RECEIVED 7 UNITS OF PACKED RED BLOOD CELLS SINCE ADMISSION. TODAY, HE IS ALERT AND ORIENTED, LYING IN BED ON MORNING ROUNDS. HE CONTINUES WITH SHORTNESS OF BREATH AND GENERALIZED WEAKNESS TODAY. HE REPORTS SLIGHT IM PROVEMENT IN ABDOMINAL PAIN. ON EXAMINATION, HEART IS REGULAR IN RATE AND RHYTHM. BILATERAL LUNGS ARE NOTED WITH RHONCHI THROUGHOUT. ABDOMEN IS ROUND, SOFT, AND NOTED WITH MILD, DIFFUSE TENDERNESS. NORMAL BOWEL SOUNDS NOTED IN ALL QUADRANTS. HIS VITALS THIS MORNING ARE 98.3-104-19-98%-137/78. LABS WERE OBTAINED. ABNORMAL LAB VALUES INCLUDE THE FOLLOWING: RBC RBC 2.95, HGB 9.3, HCT 27.0, PLT COUNT 124, BUN 24, GLUCOSE 175, BNP 218, TOTAL PROTEIN 6.1, ALBUMIN 2.7. A CHEST XRAY WAS OBTAINED THIS MORNING AND REVEALED: There is no interval change. There is chronic elevation of the left hemidiaphragm and a large wedge- shaped density extending from the left hilum peripherally in the left upper lobe . TODAY, WE WILL INCREASE LASIX TO 40MG IV BID. OTHERWISE, WE PLAN TO FOLLOW UP WITH AM LABS AND CONTINUE TO MONITOR. - Past Medical Family Social History Past Med/Fam/Surg Hx: No changes since H&P Allergies: Allergies No Known Drug Allergies Allergy (Verified 04/23/18 17:31) - Review of Systems ROS: No change since H&P - Vital Signs and I&O's Vital Signs: Temperature 97.3 F Pulse Rate [Left] 101 Pulse Rate 83 Respiratory Rate 18 Blood Pressure [Left Arm] 159/55 Blood Pressure [Right Arm] 136/80 Blood Pressure 117/67 O2 Sat by Pulse Oximetry 97 Intake and Output: Intake & Output 04/30/18 05/01/18 05/02/18 05/03/18 11:59 11:59 11:59 11:59 Intake Total 3237 / 3237 1906 / 1906 1563 / 1563 537 / 537 Output Total 3200 / 3200 5800 / 5800 3600 / 3600 1000 / 1000 Balance 37 / 37 -3894 / -3894 -2037 / -2037 -463 / -463 - Physical Exam Oriented: Normal Eyes: Normal Ear: Normal Nose: Normal Throat: Normal Respiratory: Generalized, Rhonchi Cardiovascular: Normal : Normal Auscultation: Bowel Sounds: Normal Palpation: Normal Tenderness: Normal Skin: Decreased Turgur Musculoskeletal: Back:Lumbar Psychiatric: Anxiety Affect: Anxious Speech Pattern: Clear - Laboratory and Diagnostics Result Diagrams: 05/02/18 03:58 05/02/18 03:58 Labs: 04/24/18 07:42 Stool Stool Culture - Final 04/24/18 07:42 Stool - Final 04/24/18 11:40 Sputum - Expectorated Sputum Sputum Culture - Final 04/24/18 11:40 Sputum - Expectorated Sputum - Final Laboratory WBC 5.1 X10^3/uL (3.6-10.0) 05/02/18 03:58 RBC 2.81 X10^6/uL (4.7-6.0) L 05/02/18 03:58 Hgb 8.7 g/dL (13.5-18.0) L 05/02/18 03:58 Hct 25.5 % (42.0-54.0) L 05/02/18 03:58 MCV 90.9 fL (80.0-100.0) 05/02/18 03:58 MCH 31.1 pg (27.0-34.0) 05/02/18 03:58 MCHC 34.3 g/dL (33.0-35.0) 05/02/18 03:58 RDW 15.9 % (11.6-16.5) 05/02/18 03:58 Plt Count 152 X10^3/uL (150.0-450.0) 05/02/18 03:58 Plt Count Comment Decreased (ADEQUATE) 04/29/18 03:35 MPV 8.2 fL (7.4-11.0) 05/02/18 03:58 Neut % (Auto) 77.4 % (42.0-75.0) H 05/02/18 03:58 Lymph % (Auto) 5.7 % (21.0-51.0) L 05/02/18 03:58 [place] % (Auto) 12.4 % (0.0-13.0) 05/02/18 03:58 Eos % (Auto) 3.5 % (0.9-2.9) H 05/02/18 03:58 Baso % (Auto) 1.0 % (0.2-1.0) 05/02/18 03:58 Neut # (Auto) 4.0 x10^3/uL (2.2-4.8) 05/02/18 03:58 Lymph # (Auto) 0.3 X10^3/uL (1.3-2.9) L 05/02/18 03:58 [place] # (Auto) 0.6 x10^3/uL (0.3-0.8) 05/02/18 03:58 Eos # (Auto) 0.2 x10^3/uL (0.0-0.2) 05/02/18 03:58 Baso # (Auto) 0.1 X10^3/uL (0.0-0.1) 05/02/18 03:58 Absolute Nucleated RBC 0.1 /100WBC 05/02/18 03:58 Total Counted 100 04/28/18 07:28 Neutrophils % (Manual) 85 % (39-76) H 04/28/18 07:28 Band Neutrophils % 3 % (0-10) 04/28/18 07:28 Lymphocytes % (Manual) 10 % (13-43) L 04/28/18 07:28 Monocytes % (Manual) 2 % (4-9) L 04/28/18 07:28 Plt Morphology Comment Normal (NORMAL) 04/29/18 03:35 RBC Morphology Abnormal (NORMAL) 04/29/18 03:35 Hypochromasia Slight A 04/29/18 03:35 Anisocytosis Slight A 04/29/18 03:35 D-Dimer 655 ng/mL (0-400) H* 04/23/18 19:00 Sample Site Rr 04/24/18 13:05 ABG pH 7.460 (7.35-7.45) H 04/24/18 13:05 ABG pCO2 38.0 mmHg (35.0-45.0) 04/24/18 13:05 ABG pO2 110.0 mmHg (80.0-100.0) H 04/24/18 13:05 ABG HCO3 27.0 mmol/L (22-26) H 04/24/18 13:05 ABG O2 Saturation 99.0 % (90-100) 04/24/18 13:05 ABG Base Excess 3.1 mmol/L (-2.0-2.0) H 04/24/18 13:05 Gerardo Test Pos 04/24/18 13:05 A-a Gradient 42.0 mmHg 04/24/18 13:05 FiO2 28.0 04/24/18 13:05 Blood Gas Comments Pt nigel well. cdn 04/24/18 13:05 Sodium 141 mmol/L (136-145) 05/02/18 03:58 Corrected Sodium 143 mmol/L (136-145) 05/02/18 03:58 Potassium 4.3 mmol/L (3.5-5.1) 05/02/18 03:58 Chloride 103 mmol/L (98-107) 05/02/18 03:58 Carbon Dioxide 33.0 mmol/L (21-32) H 05/02/18 03:58 BUN 28 mg/dL (7-18) H 05/02/18 03:58 Creatinine 0.99 mg/dL (0.70-1.30) 05/02/18 03:58 Est GFR (MDRD) Af Amer > 60 (>60) 05/02/18 03:58 Est GFR (MDRD) Non-Af > 60 (>60) 05/02/18 03:58 Glucose 168 mg/dL (65-99) H 05/02/18 03:58 POC Glucose (mg/dL) 180 mg/dL (65-99) H 05/02/18 16:11 Calcium 8.9 mg/dL (8.5-10.1) 05/02/18 03:58 Corrected Calcium 10.1 mg/dL (8.5-10.1) 05/02/18 03:58 Magnesium 1.9 mg/dL (1.7-2.9) 04/29/18 03:35 Iron 36 ug/dL (50-175) L 04/25/18 04:52 TIBC 253 ug/dL (250-450) 04/29/18 03:35 Transferrin 200 mg/dL (202-364) L 04/25/18 04:52 Ferritin 70 ng/mL (26-388) 04/25/18 04:52 Total Bilirubin 0.50 mg/dL (0.2-1.0) 05/02/18 03:58 AST 18 Units/L (15-37) 05/02/18 03:58 ALT 25 Units/L (12-78) 05/02/18 03:58 Alkaline Phosphatase 50 Units/L (46-116) 05/02/18 03:58 B-Natriuretic Peptide 218 pg/mL (0-79) H 04/30/18 04:51 Total Protein 6.0 g/dL (6.4-8.2) L 05/02/18 03:58 Albumin 2.5 g/dL (3.4-5.0) L 05/02/18 03:58 Globulin 3.5 g/dL (2.5-4.5) 05/02/18 03:58 Albumin/Globulin Ratio 0.7 Ratio (1.1-2.1) L 05/02/18 03:58 Vitamin B12 291 pg/mL (193-986) 04/25/18 04:52 Folate > 20.0 ng/mL (>8.6) 04/25/18 04:52 Specimen Type Catherized urine 04/23/18 22:27 Urine Color Pale yellow (YELLOW) 04/23/18 22:27 Urine Appearance Clear (CLEAR) 04/23/18 22:27 Urine pH 6.0 (5.0 - 8.0) 04/23/18 22: Ur Specific [place] 1.005 (1.000-1.030) 04/23/18 22:27 Urine Protein 2+ (NEGATIVE) 04/23/18 22:27 Urine Glucose (UA) Negative (NEGATIVE) 04/23/18 22:27 Urine Ketones Negative (NEGATIVE) 04/23/18 22: Urine Occult Blood 1+ (NEGATIVE) 04/23/18 22: Urine Nitrite Negative (NEGATIVE) 04/23/18 22: Urine Bilirubin Negative (NEGATIVE) 04/23/18 22: Urine Urobilinogen Normal (NORMAL) 04/23/18 22: Ur Leukocyte Esterase 1+ (NEGATIVE) 04/23/18 22:27 Urine RBC 3-5 /HPF (NONE SEEN) 04/23/18 22:27 Urine WBC 3-5 /HPF (NONE SEEN) 04/23/18 22:27 Ur Squamous Epith Cells Rare /HPF (NEGATIVE) 04/23/18 22: Urine Bacteria Negative /HPF (NEGATIVE) 04/23/18 22:27 Hyaline Casts Few /LPF (NEGATIVE) 04/23/18 22:27 Ur Culture Indicated? No/not indicated 04/23/18 22:27 Stool Description 100 g. black/liquid 04/27/18 02:12 Stl Occult Blood (IFOB) Positive (NEGATIVE) A 04/27/18 02:12 Stool for White Cells Negative (NEGATIVE) 04/24/18 07:42 Tissue Pathology To follow 04/28/18 11:32 Blood Type O NEGATIVE 04/27/18 19:37 Antibody Screen Negative 04/27/18 19:37 Crossmatch See Detail 04/27/18 19:37 - Plan (1) Severe anemia Status: Acute Plan: CONTINUE TO MONITOR (2) COPD (chronic obstructive pulmonary disease) Status: Chronic Qualifiers: COPD type: unspecified COPD Qualified Code(s): J44.9 - Chronic obstructive pulmonary disease, unspecified (3) Fluid overload Status: Acute Qualifiers: Hypervolemia type: unspecified Qualified Code(s): E87.70 - Fluid overload, unspecified Plan: CONTINUE LASIX, MONITOR CHEST XRAY
[2018-05-02] MEDS: SNACK - Diabetic Appropriate PO SCH (20:00)
[2018-05-02] MEDS: FLOMAX PO SCH (20:48)
[2018-05-02] MEDS: ZOCOR TAB 40 MG PO SCH (20:49)
[2018-05-02] MEDS: LOVENOX INJ 40 MG SYR SC SCH (21:30)
[2018-05-03 05:25] LABS: BASOPHILS # (AUTO) 0.1 X10^3/uL (0.0-0.1); EOSINOPHILS # (AUTO) 0.2 x10^3/uL (0.0-0.2); EOSINOPHILS % (AUTO) 2.9 % (0.9-2.9); HEMATOCRIT 22.6 % (42.0-54.0); HEMOGLOBIN 7.8 g/dL (13.5-18.0); LYMPHOCYTES # (AUTO) 0.4 X10^3/uL (1.3-2.9); LYMPHOCYTES % (AUTO) 6.7 % (21.0-51.0); MEAN CORPUSCULAR HEMOGLOBIN 31.7 pg (27.0-34.0); MEAN CORPUSCULAR HGB CONC 34.5 g/dL (33.0-35.0); MEAN CORPUSCULAR VOLUME 91.8 fL (80.0-100.0); MEAN PLATELET VOLUME 7.8 fL (7.4-11.0); MONOCYTES # (AUTO) 0.7 x10^3/uL (0.3-0.8); NEUTROPHILS # (AUTO) 4.2 x10^3/uL (2.2-4.8); NEUTROPHILS % (AUTO) 77.4 % (42.0-75.0); PLATELET COUNT 163 X10^3/uL (150.0-450.0); RED BLOOD COUNT 2.46 X10^6/uL (4.7-6.0); RED CELL DISTRIBUTION WIDTH 15.7 % (11.6-16.5); WHITE BLOOD COUNT 5.5 X10^3/uL (3.6-10.0)
[2018-05-03] MEDS: VISTARIL PO PRN (05:25)
[2018-05-03] MEDS: TESSALON PERLES PO SCH ×3 (05:25→22:00)
[2018-05-03] MEDS: NORCO 5/325 MG TAB PO PRN ×2 (05:26→16:00)
[2018-05-03 05:29] LABS: ALANINE AMINOTRANSFERASE 22 Units/L (12-78); ALBUMIN 2.3 g/dL (3.4-5.0); ALKALINE PHOSPHATASE 43 Units/L (46-116); ASPARTATE AMINO TRANSFERASE 15 Units/L (15-37); BLOOD UREA NITROGEN 28 mg/dL (7-18); CALCIUM 8.7 mg/dL (8.5-10.1); CARBON DIOXIDE 34.1 mmol/L (21-32); CHLORIDE 103 mmol/L (98-107); COR CA(FOR HYPOALB) 10.1 mg/dL (8.5-10.1); COR NA(FOR HYPERGLY) 143 mmol/L (136-145); SODIUM 142 mmol/L (136-145); TOTAL PROTEIN 5.7 g/dL (6.4-8.2); eGFR NON BLACK RACES > 60 (>60)
[2018-05-03] MEDS: DUONEB 0.5 MG/3 MG NEB SCH ×3 (05:40→21:00)
[2018-05-03] MEDS: HumuLIN R SUBCUT PRN ×3 (06:05→20:34)
[2018-05-03 06:13] LABS: ANISOCYTOSIS SLIGHT; HYPOCHROMASIA SLIGHT; PLATELET MORPHOLOGY COMMENT NORMAL (NORMAL)
--- NOTE | 2018-05-03 07:43 | RAD ---
AP Chest Indication: Shortness of breath Comparison: 05/02/2018 Findings: The right chest wall MediPort is unchanged in positioning with persistent kinking along the chest wall just inferior to the right clavicle needing clinical correlation for function of catheter. Trachea is midline. Heart size is unchanged. Moderate elevation of the left hemidiaphragm with dense consolidation within the left upper lobe unchanged from prior examination. Right lung demonstrates no new airspace opacity. No pleural effusion or pneumothorax. No new osseous abnormality. Impression: No significant change from multiple prior radiographic evaluations. Reported By:
[2018-05-03] MEDS: PULMICORT NEB TX 0.5 MG NEB SCH ×2 (08:13→21:00)
--- NOTE | 2018-05-03 08:26 | PCM.PROG ---
Progress Note - Progress Note for Day of Date of Exam: 05/01/18 - Subjective Subjective: WAS ADMITTED FOR SYMPTOMATIC ANEMIA, DEHYDRATION, AND COPD. HE HAS RECEIVED 7 UNITS OF PACKED RED BLOOD CELLS SINCE ADMISSION. TODAY, HE IS ALERT AND ORIENTED, LYING IN BED ON MORNING ROUNDS. HE CONTINUES WITH SHORTNESS OF BREATH AND GENERALIZED WEAKNESS TODAY. HE REPORTS SLIGHT IM PROVEMENT IN ABDOMINAL PAIN. ON EXAMINATION, HEART IS REGULAR IN RATE AND RHYTHM. BILATERAL LUNGS ARE NOTED WITH RHONCHI THROUGHOUT. ABDOMEN IS ROUND, SOFT, AND NOTED WITH MILD, DIFFUSE TENDERNESS. NORMAL BOWEL SOUNDS NOTED IN ALL QUADRANTS. HIS VITALS THIS MORNING ARE 98.3-104-19-98%-137/78. LABS WERE OBTAINED. ABNORMAL LAB VALUES INCLUDE THE FOLLOWING: RBC RBC 2.95, HGB 9.3, HCT 27.0, PLT COUNT 124, BUN 24, GLUCOSE 175, BNP 218, TOTAL PROTEIN 6.1, ALBUMIN 2.7. A CHEST XRAY WAS OBTAINED THIS MORNING AND REVEALED: There is no interval change. There is chronic elevation of the left hemidiaphragm and a large wedge- shaped density extending from the left hilum peripherally in the left upper lobe . TODAY, WE WILL INCREASE LASIX TO 40MG IV BID. OTHERWISE, WE PLAN TO FOLLOW UP WITH AM LABS AND CONTINUE TO MONITOR. - Past Medical Family Social History Past Med/Fam/Surg Hx: No changes since H&P Allergies: Allergies No Known Drug Allergies Allergy (Verified 04/23/18 17:31) - Review of Systems ROS: No change since H&P - Vital Signs and I&O's Vital Signs: Temperature 98.6 F Pulse Rate [Left] 101 Pulse Rate 89 Respiratory Rate 20 Blood Pressure [Left Arm] 159/55 Blood Pressure [Right Arm] 136/80 Blood Pressure 146/71 O2 Sat by Pulse Oximetry 93 Intake and Output: Intake & Output 04/30/18 05/01/18 05/02/18 05/03/18 11:59 11:59 11:59 11:59 Intake Total 3237 / 3237 1906 / 1906 1563 / 1563 1496 / 1496 Output Total 3200 / 3200 5800 / 5800 3600 / 3600 2600 / 2600 Balance 37 / 37 -3894 / -3894 -2037 / -203 -1104 / -1104 - Physical Exam Oriented: Normal Eyes: Normal Ear: Normal Nose: Normal Throat: Normal Respiratory: Generalized, Diminished Cardiovascular: Normal, Edema : Normal Auscultation: Bowel Sounds: Normal Tenderness: Normal Skin: Decreased Turgur Musculoskeletal: Right, Left, Leg, Back:Lumbar Psychiatric: Anxiety Affect: Anxious Speech Pattern: Clear - Laboratory and Diagnostics Result Diagrams: 05/03/18 04:04 05/03/18 04:04 Labs: 04/24/18 07:42 Stool Stool Culture - Final 04/24/18 07:42 Stool - Final 04/24/18 11:40 Sputum - Expectorated Sputum Sputum Culture - Final 04/24/18 11:40 Sputum - Expectorated Sputum - Final Laboratory WBC 5.5 X10^3/uL (3.6-10.0) 05/03/18 04:04 RBC 2.46 X10^6/uL (4.7-6.0) L 05/03/18 04:04 Hgb 7.8 g/dL (13.5-18.0) L 05/03/18 04:04 Hct 22.6 % (42.0-54.0) L 05/03/18 04:04 MCV 91.8 fL (80.0-100.0) 05/03/18 04:04 MCH 31.7 pg (27.0-34.0) 05/03/18 04:04 MCHC 34.5 g/dL (33.0-35.0) 05/03/18 04:04 RDW 15.7 % (11.6-16.5) 05/03/18 04:04 Plt Count 163 X10^3/uL (150.0-450.0) 05/03/18 04:04 Plt Count Comment Adequate (ADEQUATE) 05/03/18 04:04 MPV 7.8 fL (7.4-11.0) 05/03/18 04:04 Neut % (Auto) 77.4 % (42.0-75.0) H 05/03/18 04:04 Lymph % (Auto) 6.7 % (21.0-51.0) L 05/03/18 04:04 [place] % (Auto) 12.0 % (0.0-13.0) 05/03/18 04:04 Eos % (Auto) 2.9 % (0.9-2.9) 05/03/18 04:04 Baso % (Auto) 1.0 % (0.2-1.0) 05/03/18 04:04 Neut # (Auto) 4.2 x10^3/uL (2.2-4.8) 05/03/18 04:04 Lymph # (Auto) 0.4 X10^3/uL (1.3-2.9) L 05/03/18 04:04 [place] # (Auto) 0.7 x10^3/uL (0.3-0.8) 05/03/18 04:04 Eos # (Auto) 0.2 x10^3/uL (0.0-0.2) 05/03/18 04:04 Baso # (Auto) 0.1 X10^3/uL (0.0-0.1) 05/03/18 04:04 Absolute Nucleated RBC 0.1 /100WBC 05/03/18 04:04 Total Counted 100 04/28/18 07:28 Neutrophils % (Manual) 85 % (39-76) H 04/28/18 07:28 Band Neutrophils % 3 % (0-10) 04/28/18 07:28 Lymphocytes % (Manual) 10 % (13-43) L 04/28/18 07:28 Monocytes % (Manual) 2 % (4-9) L 04/28/18 07:28 Plt Morphology Comment Normal (NORMAL) 05/03/18 04:04 RBC Morphology Abnormal (NORMAL) 05/03/18 04:04 Hypochromasia Slight A 05/03/18 04:04 Anisocytosis Slight A 05/03/18 04:04 D-Dimer 655 ng/mL (0-400) H* 04/23/18 19:00 Sample Site Rr 04/24/18 13:05 ABG pH 7.460 (7.35-7.45) H 04/24/18 13:05 ABG pCO2 38.0 mmHg (35.0-45.0) 04/24/18 13:05 ABG pO2 110.0 mmHg (80.0-100.0) H 04/24/18 13:05 ABG HCO3 27.0 mmol/L (22-26) H 04/24/18 13:05 ABG O2 Saturation 99.0 % (90-100) 04/24/18 13:05 ABG Base Excess 3.1 mmol/L (-2.0-2.0) H 04/24/18 13:05 Gerardo Test Pos 04/24/18 13:05 A-a Gradient 42.0 mmHg 04/24/18 13:05 FiO2 28.0 04/24/18 13:05 Blood Gas Comments Pt nigel well. cdn 04/24/18 13:05 Sodium 142 mmol/L (136-145) 05/03/18 04:04 Corrected Sodium 143 mmol/L (136-145) 05/03/18 04:04 Potassium 4.1 mmol/L (3.5-5.1) 05/03/18 04:04 Chloride 103 mmol/L (98-107) 05/03/18 04:04 Carbon Dioxide 34.1 mmol/L (21-32) H 05/03/18 04:04 BUN 28 mg/dL (7-18) H 05/03/18 04:04 Creatinine 1.10 mg/dL (0.70-1.30) 05/03/18 04:04 Est GFR (MDRD) Af Amer > 60 (>60) 05/03/18 04:04 Est GFR (MDRD) Non-Af > 60 (>60) 05/03/18 04:04 Glucose 152 mg/dL (65-99) H 05/03/18 04:04 POC Glucose (mg/dL) 158 mg/dL (65-99) H 05/03/18 05:44 Calcium 8.7 mg/dL (8.5-10.1) 05/03/18 04:04 Corrected Calcium 10.1 mg/dL (8.5-10.1) 05/03/18 04:04 Magnesium 1.9 mg/dL (1.7-2.9) 04/29/18 03:35 Iron 36 ug/dL (50-175) L 04/25/18 04:52 TIBC 253 ug/dL (250-450) 04/29/18 03:35 Transferrin 200 mg/dL (202-364) L 04/25/18 04:52 Ferritin 70 ng/mL (26-388) 04/25/18 04:52 Total Bilirubin 0.50 mg/dL (0.2-1.0) 05/03/18 04:04 AST 15 Units/L (15-37) 05/03/18 04:04 ALT 22 Units/L (12-78) 05/03/18 04:04 Alkaline Phosphatase 43 Units/L (46-116) L 05/03/18 04:04 B-Natriuretic Peptide 218 pg/mL (0-79) H 04/30/18 04:51 Total Protein 5.7 g/dL (6.4-8.2) L 05/03/18 04:04 Albumin 2.3 g/dL (3.4-5.0) L 05/03/18 04:04 Globulin 3.4 g/dL (2.5-4.5) 05/03/18 04:04 Albumin/Globulin Ratio 0.7 Ratio (1.1-2.1) L 05/03/18 04:04 Vitamin B12 291 pg/mL (193-986) 04/25/18 04:52 Folate > 20.0 ng/mL (>8.6) 04/25/18 04:52 Specimen Type Catherized urine 04/23/18 22: Urine Color Pale yellow (YELLOW) 04/23/18 22: Urine Appearance Clear (CLEAR) 04/23/18 22: Urine pH 6.0 (5.0 - 8.0) 04/23/18 22: Ur Specific [place] 1.005 (1.000-1.030) 04/23/18 22: Urine Protein 2+ (NEGATIVE) 04/23/18 22: Urine Glucose (UA) Negative (NEGATIVE) 04/23/18 22: Urine Ketones Negative (NEGATIVE) 04/23/18 22: Urine Occult Blood 1+ (NEGATIVE) 04/23/18 22: Urine Nitrite Negative (NEGATIVE) 04/23/18 22: Urine Bilirubin Negative (NEGATIVE) 04/23/18 22: Urine Urobilinogen Normal (NORMAL) 04/23/18 22: Ur Leukocyte Esterase 1+ (NEGATIVE) 04/23/18 22: Urine RBC 3-5 /HPF (NONE SEEN) 04/23/18 22:27 Urine WBC 3-5 /HPF (NONE SEEN) 04/23/18 22: Ur Squamous Epith Cells Rare /HPF (NEGATIVE) 04/23/18 22: Urine Bacteria Negative /HPF (NEGATIVE) 04/23/18 22:27 Hyaline Casts Few /LPF (NEGATIVE) 04/23/18 22:27 Ur Culture Indicated? No/not indicated 04/23/18 22:27 Stool Description 100 g. black/liquid 04/27/18 02:12 Stl Occult Blood (IFOB) Positive (NEGATIVE) A 04/27/18 02:12 Stool for White Cells Negative (NEGATIVE) 04/24/18 07:42 Tissue Pathology To follow 04/28/18 11:32 Blood Type O NEGATIVE 04/27/18 19:37 Antibody Screen Negative 04/27/18 19:37 Crossmatch See Detail 04/27/18 19:37 - Plan (1) Severe anemia Status: Acute Plan: MONITOR H&H. SUPPLEMENTAL O2. S/P ESDOSCOPY, BP CONTROL. RESP THERAPY, IV LASIX, STRICT I&OS. PAIN CONTROL, WE RECOMMEND MCC PLACEMENT/REHAB THERAPY WHEN HGB IS STABLE (2) Respiratory distress Status: Acute (3) Hx of cancer of lung Status: Chronic (4) Diabetes Status: Chronic Qualifiers: Diabetes mellitus type: type 2 Diabetes mellitus alf insulin use: with intermediate manager use Diabetes mellitus complication status: without complication Qualified Code(s): E11.9 - Type 2 diabetes mellitus without complications; Z79.4 - residential (current) use of insulin; Z79.4 - manager intermediate (current) use of insulin; Z79.4 - manager intermediate (current) use of insulin; Z79.4 - manager intermediate (current) use of insulin (5) Elevated d-dimer Status: Acute (6) COPD (chronic obstructive pulmonary disease) Status: Chronic Qualifiers: COPD type: unspecified COPD Qualified Code(s): J44.9 - Chronic obstructive pulmonary disease, unspecified (7) Morbid obesity Status: Acute (8) Weakness Status: Acute
--- NOTE | 2018-05-03 08:29 | PCM.PROG ---
Progress Note - Progress Note for Day of Date of Exam: 05/02/18 - Subjective Subjective: WAS ADMITTED FOR SYMPTOMATIC ANEMIA, DEHYDRATION, AND COPD. HE HAS RECEIVED 7 UNITS OF PACKED RED BLOOD CELLS SINCE ADMISSION. TODAY, HE IS ALERT AND ORIENTED, LYING IN BED ON MORNING ROUNDS. PT CO LEG PAIN, "RESTLESS LEGS". PT IS CURRENTLY ON VALIUM AND LYRICA PO. PT HGB DOWN 8.7 THIS AM, RENAL FUNCTION STABLE BUN 28, CREAT 0.99. DISCUSSED NEED FOR SMALL BOWEL STUDY PER GASTROENTEROLOGY, CAN BE PERFORMED ON OUTPT BASIS. CONTINUE STRICT I& OS. WE RECOMMEND REHAB/INTERMEDIATE WHEN HGB IS STABLE. - Past Medical Family Social History Past Med/Fam/Surg Hx: No changes since H&P Allergies: Allergies No Known Drug Allergies Allergy (Verified 04/23/18 17:31) - Review of Systems ROS: No change since H&P - Vital Signs and I&O's Vital Signs: Temperature 98.6 F Pulse Rate [Left] 101 Pulse Rate 89 Respiratory Rate 20 Blood Pressure [Left Arm] 159/55 Blood Pressure [Right Arm] 136/80 Blood Pressure 146/71 O2 Sat by Pulse Oximetry 93 Intake and Output: Intake & Output 04/30/18 05/01/18 05/02/18 05/03/18 11:59 11:59 11:59 11:59 Intake Total 3237 / 3237 1906 / 1906 1563 / 1563 1496 / 1496 Output Total 3200 / 3200 5800 / 5800 3600 / 3600 2600 / 2600 Balance 37 / 37 -3894 / -3894 -2037 / -2037 -1104 / -1104 - Physical Exam Oriented: Normal Eyes: Normal Ear: Normal Nose: Normal Throat: Normal Respiratory: Generalized, Diminished Cardiovascular: Normal, Edema : Normal Auscultation: Bowel Sounds: Normal Tenderness: Normal Skin: Decreased Turgur Musculoskeletal: Right, Left, Leg, Back:Lumbar Psychiatric: Anxiety Affect: Anxious Speech Pattern: Clear - Laboratory and Diagnostics Result Diagrams: 05/03/18 04:04 05/03/18 04:04 Labs: 04/24/18 07:42 Stool Stool Culture - Final 04/24/18 07:42 Stool - Final 04/24/18 11:40 Sputum - Expectorated Sputum Sputum Culture - Final 04/24/18 11:40 Sputum - Expectorated Sputum - Final Laboratory WBC 5.5 X10^3/uL (3.6-10.0) 05/03/18 04:04 RBC 2.46 X10^6/uL (4.7-6.0) L 05/03/18 04:04 Hgb 7.8 g/dL (13.5-18.0) L 05/03/18 04:04 Hct 22.6 % (42.0-54.0) L 05/03/18 04:04 MCV 91.8 fL (80.0-100.0) 05/03/18 04:04 MCH 31.7 pg (27.0-34.0) 05/03/18 04:04 MCHC 34.5 g/dL (33.0-35.0) 05/03/18 04:04 RDW 15.7 % (11.6-16.5) 05/03/18 04:04 Plt Count 163 X10^3/uL (150.0-450.0) 05/03/18 04:04 Plt Count Comment Adequate (ADEQUATE) 05/03/18 04:04 MPV 7.8 fL (7.4-11.0) 05/03/18 04:04 Neut % (Auto) 77.4 % (42.0-75.0) H 05/03/18 04:04 Lymph % (Auto) 6.7 % (21.0-51.0) L 05/03/18 04:04 Hand % (Auto) 12.0 % (0.0-13.0) 05/03/18 04:04 Eos % (Auto) 2.9 % (0.9-2.9) 05/03/18 04:04 Baso % (Auto) 1.0 % (0.2-1.0) 05/03/18 04:04 Neut # (Auto) 4.2 x10^3/uL (2.2-4.8) 05/03/18 04:04 Lymph # (Auto) 0.4 X10^3/uL (1.3-2.9) L 05/03/18 04:04 [place] # (Auto) 0.7 x10^3/uL (0.3-0.8) 05/03/18 04:04 Eos # (Auto) 0.2 x10^3/uL (0.0-0.2) 05/03/18 04:04 Baso # (Auto) 0.1 X10^3/uL (0.0-0.1) 05/03/18 04:04 Absolute Nucleated RBC 0.1 /100WBC 05/03/18 04:04 Total Counted 100 04/28/18 07:28 Neutrophils % (Manual) 85 % (39-76) H 04/28/18 07:28 Band Neutrophils % 3 % (0-10) 04/28/18 07:28 Lymphocytes % (Manual) 10 % (13-43) L 04/28/18 07:28 Monocytes % (Manual) 2 % (4-9) L 04/28/18 07:28 Plt Morphology Comment Normal (NORMAL) 05/03/18 04:04 RBC Morphology Abnormal (NORMAL) 05/03/18 04:04 Hypochromasia Slight A 05/03/18 04:04 Anisocytosis Slight A 05/03/18 04:04 D-Dimer 655 ng/mL (0-400) H* 04/23/18 19:00 Sample Site Rr 04/24/18 13:05 ABG pH 7.460 (7.35-7.45) H 04/24/18 13:05 ABG pCO2 38.0 mmHg (35.0-45.0) 04/24/18 13:05 ABG pO2 110.0 mmHg (80.0-100.0) H 04/24/18 13:05 ABG HCO3 27.0 mmol/L (22-26) H 04/24/18 13:05 ABG O2 Saturation 99.0 % (90-100) 04/24/18 13:05 ABG Base Excess 3.1 mmol/L (-2.0-2.0) H 04/24/18 13:05 Gerardo Test Pos 04/24/18 13:05 A-a Gradient 42.0 mmHg 04/24/18 13:05 FiO2 28.0 04/24/18 13:05 Blood Gas Comments Pt nigel well. cdn 04/24/18 13:05 Sodium 142 mmol/L (136-145) 05/03/18 04:04 Corrected Sodium 143 mmol/L (136-145) 05/03/18 04:04 Potassium 4.1 mmol/L (3.5-5.1) 05/03/18 04:04 Chloride 103 mmol/L (98-107) 05/03/18 04:04 Carbon Dioxide 34.1 mmol/L (21-32) H 05/03/18 04:04 BUN 28 mg/dL (7-18) H 05/03/18 04:04 Creatinine 1.10 mg/dL (0.70-1.30) 05/03/18 04:04 Est GFR (MDRD) Af Amer > 60 (>60) 05/03/18 04:04 Est GFR (MDRD) Non-Af > 60 (>60) 05/03/18 04:04 Glucose 152 mg/dL (65-99) H 05/03/18 04:04 POC Glucose (mg/dL) 158 mg/dL (65-99) H 05/03/18 05:44 Calcium 8.7 mg/dL (8.5-10.1) 05/03/18 04:04 Corrected Calcium 10.1 mg/dL (8.5-10.1) 05/03/18 04:04 Magnesium 1.9 mg/dL (1.7-2.9) 04/29/18 03:35 Iron 36 ug/dL (50-175) L 04/25/18 04:52 TIBC 253 ug/dL (250-450) 04/29/18 03:35 Transferrin 200 mg/dL (202-364) L 04/25/18 04:52 Ferritin 70 ng/mL (26-388) 04/25/18 04:52 Total Bilirubin 0.50 mg/dL (0.2-1.0) 05/03/18 04:04 AST 15 Units/L (15-37) 05/03/18 04:04 ALT 22 Units/L (12-78) 05/03/18 04:04 Alkaline Phosphatase 43 Units/L (46-116) L 05/03/18 04:04 B-Natriuretic Peptide 218 pg/mL (0-79) H 04/30/18 04:51 Total Protein 5.7 g/dL (6.4-8.2) L 05/03/18 04:04 Albumin 2.3 g/dL (3.4-5.0) L 05/03/18 04:04 Globulin 3.4 g/dL (2.5-4.5) 05/03/18 04:04 Albumin/Globulin Ratio 0.7 Ratio (1.1-2.1) L 05/03/18 04:04 Vitamin B12 291 pg/mL (193-986) 04/25/18 04:52 Folate > 20.0 ng/mL (>8.6) 04/25/18 04:52 Specimen Type Catherized urine 04/23/18 22:27 Urine Color Pale yellow (YELLOW) 04/23/18 22:27 Urine Appearance Clear (CLEAR) 04/23/18 22: Urine pH 6.0 (5.0 - 8.0) 04/23/18 22: Ur Specific [place] 1.005 (1.000-1.030) 04/23/18 22: Urine Protein 2+ (NEGATIVE) 04/23/18 22: Urine Glucose (UA) Negative (NEGATIVE) 04/23/18 22: Urine Ketones Negative (NEGATIVE) 04/23/18 22: Urine Occult Blood 1+ (NEGATIVE) 04/23/18 22:27 Urine Nitrite Negative (NEGATIVE) 04/23/18 22: Urine Bilirubin Negative (NEGATIVE) 04/23/18 22:27 Urine Urobilinogen Normal (NORMAL) 04/23/18 22:27 Ur Leukocyte Esterase 1+ (NEGATIVE) 04/23/18 22:27 Urine RBC 3-5 /HPF (NONE SEEN) 04/23/18 22:27 Urine WBC 3-5 /HPF (NONE SEEN) 04/23/18 22:27 Ur Squamous Epith Cells Rare /HPF (NEGATIVE) 04/23/18 22:27 Urine Bacteria Negative /HPF (NEGATIVE) 04/23/18 22:27 Hyaline Casts Few /LPF (NEGATIVE) 04/23/18 22:27 Ur Culture Indicated? No/not indicated 04/23/18 22:27 Stool Description 100 g. black/liquid 04/27/18 02:12 Stl Occult Blood (IFOB) Positive (NEGATIVE) A 04/27/18 02:12 Stool for White Cells Negative (NEGATIVE) 04/24/18 07:42 Tissue Pathology To follow 04/28/18 11:32 Blood Type O NEGATIVE 04/27/18 19:37 Antibody Screen Negative 04/27/18 19:37 Crossmatch See Detail 04/27/18 19:37 - Plan (1) Severe anemia Status: Acute Plan: MONITOR H&H. SUPPLEMENTAL O2. S/P ESDOSCOPY, BP CONTROL. RESP THERAPY, IV LASIX, STRICT I&OS. PAIN CONTROL, WE RECOMMEND INTERMEDIATE PLACEMENT/REHAB THERAPY WHEN HGB IS STABLE (2) Respiratory distress Status: Acute (3) Hx of cancer of lung Status: Chronic (4) Diabetes Status: Chronic Qualifiers: Diabetes mellitus type: type 2 Diabetes mellitus care home insulin use: with emt intermediate use Diabetes mellitus complication status: without complication Qualified Code(s): E11.9 - Type 2 diabetes mellitus without complications; Z79.4 - emt intermediate (current) use of insulin; Z79.4 - emt intermediate (current) use of insulin; Z79.4 - emt intermediate (current) use of insulin; Z79.4 - emt intermediate (current) use of insulin (5) Elevated d-dimer Status: Acute (6) COPD (chronic obstructive pulmonary disease) Status: Chronic Qualifiers: COPD type: unspecified COPD Qualified Code(s): J44.9 - Chronic obstructive pulmonary disease, unspecified (7) Morbid obesity Status: Acute (8) Weakness Status: Acute
[2018-05-03] MEDS ORDERED: GLUCOPHAGE ONE ×2 (08:38→18:31)
[2018-05-03] MEDS: ACCUPRIL PO SCH (08:51)
[2018-05-03] MEDS: VALIUM PO PRN (08:51)
[2018-05-03] MEDS: LYRICA CAP 75 MG PO SCH ×2 (08:52→20:31)
[2018-05-03] MEDS: GLUCOPHAGE PO SCH ×2 (08:52→18:32)
[2018-05-03] MEDS: MUCINEX EXPECTORANT PO SCH ×2 (08:52→20:32)
[2018-05-03] MEDS: MAG-OX TAB PO SCH ×2 (08:53→20:31)
[2018-05-03] MEDS: LASIX IVP SCH ×2 (08:53→20:31)
[2018-05-03] MEDS: PROTONIX INJ 40 MG VIAL IVP SCH ×2 (08:53→20:30)
[2018-05-03] MEDS: LOVENOX INJ 40 MG SYR SC SCH (08:53)
[2018-05-03] MEDS: PEPCID 20 MG IV PREMIX* 20 MG/50 ML BAG IV SCH ×2 (08:53→20:30)
[2018-05-03] MEDS ORDERED: PEPCID 20 MG IV PREMIX* 20 MG/50 ML BAG IV SCH (10:00)
[2018-05-03] MEDS ORDERED: MUCOMYST 20% 200 MG/ML NEB SCH (10:15)
[2018-05-03] MEDS: VITAMIN D3 PO SCH (11:11)
[2018-05-03] MEDS: THEO-DUR TAB 200 MG PO SCH ×2 (11:11→20:32)
[2018-05-03] MEDS: SOLU-Medrol 40 MG VIAL IVP SCH ×3 (11:11→22:00)
[2018-05-03] MEDS: LEVAQUIN PREMIX IV 500 MG 500 MG/100 ML BAG IV SCH (11:11)
[2018-05-03] MEDS: MUCOMYST 20% 200 MG/ML NEB SCH ×2 (14:31→21:00)
[2018-05-03] MEDS: FLOMAX PO SCH (20:31)
[2018-05-03] MEDS: ZOCOR TAB 40 MG PO SCH (20:31)
[2018-05-03] MEDS: SNACK - Diabetic Appropriate PO SCH (20:32)
--- NOTE | 2018-05-03 20:52 | PCM.PROG ---
Progress Note - Subjective Subjective: WAS ADMITTED FOR SYMPTOMATIC ANEMIA, DEHYDRATION, AND COPD. HE HAS RECEIVED 7 UNITS OF PACKED RED BLOOD CELLS SINCE ADMISSION. TODAY, HE IS ALERT AND ORIENTED, LYING IN BED ON MORNING ROUNDS. HE CONTINUES WITH SHORTNESS OF BREATH, GENERALIZED WEAKNESS , AND RESTLESS LEGS TODAY. HE ALSO CONTINUES WITH COUGH AND SHORTNESS OF BREATH. ON EXAMINATION, HEART IS REGULAR IN RATE AND RHYTHM. BILATERAL LUNGS ARE NOTED WITH SCATTERED WHEEZING AND RHONCHI THROUGHOUT. ABDOMEN IS ROUND, SOFT, AND NOTED WITH MILD, DIFFUSE TENDERNESS. NORMAL BOWEL SOUNDS NOTED IN ALL QUADRANTS. HIS VITALS THIS MORNING ARE 97.2-85-23-96%-141/89. LABS WERE OBTAINED. ABNORMAL LAB VALUES INCLUDE THE FOLLOWING: RBC 2.46, HGB 7.8, HCT 22.6, CARBON DIOXIDE 34.1, BUN 28, GLUCOSE 152, ALK PHOS 43, TOTAL PROTEIN 5.7, ALBUMIN 2.3. A CHEST XRAY WAS OBTAINED THIS MORNING AND REVEALED: The right chest wall MediPort is unchanged in positioning with persistent kinking along the chest wall just inferior to the right clavicle needing clinical correlation for function of catheter. Trachea is midline. Heart size is unchanged. Moderate elevation of the left hemidiaphragm with dense consolidation within the left upper lobe unchanged from prior examination. Right lung demonstrates no new airspace opacity. No pleural effusion or pneumothorax. No new osseous abnormality. HE IS COOPERATING WELL WITH PHYSICAL THERAPY. TODAY, WE WILL START LEVAQUIN 500MG IV DAILY, ADD MUCOMYST TO NEB TX, MICHELLE-DUR 200MG PO BID, SOLU-MEDROL 40MG IV Q8H, PEPCID IV, AND PROTONIX IV. OTHERWISE, WE PLAN TO FOLLOW UP WITH AM LABS AND CHEST XRAY AND CONTINUE TO MONITOR. - Past Medical Family Social History Past Med/Fam/Surg Hx: No changes since H&P Allergies: Allergies No Known Drug Allergies Allergy (Verified 04/23/18 17:31) - Review of Systems ROS: No change since H&P - Vital Signs and I&O's Vital Signs: Temperature 98.8 F Pulse Rate [Left] 101 Pulse Rate 92 Respiratory Rate 16 Blood Pressure [Left Arm] 159/55 Blood Pressure [Right Arm] 136/80 Blood Pressure 161/93 O2 Sat by Pulse Oximetry 94 Intake and Output: Intake & Output 05/01/18 05/02/18 05/03/1805/04/19 11:59 11:59 11:59 11:59 Intake Total 1906 / 1906 1563 / 1563 1496 / 1496 897 / 897 Output Total 5800 / 5800 3600 / 3600 2600 / 2600 1400 / 1400 Balance -3894 / -3894 -2037 / -2037 -1104 / -1104 -503 / -503 - Physical Exam Oriented: Normal Eyes: Normal Ear: Normal Nose: Normal Throat: Normal Respiratory: Generalized, Diminished Cardiovascular: Normal, Edema : Normal Auscultation: Bowel Sounds: Normal Tenderness: Normal Skin: Decreased Turgur Musculoskeletal: Right, Left, Leg, Back:Lumbar Psychiatric: Anxiety Affect: Anxious Speech Pattern: Clear - Laboratory and Diagnostics Result Diagrams: 05/03/18 04:04 05/03/18 04:04 Labs: 04/24/18 07:42 Stool Stool Culture - Final 04/24/18 07:42 Stool - Final 04/24/18 11:40 Sputum - Expectorated Sputum Sputum Culture - Final 04/24/18 11:40 Sputum - Expectorated Sputum - Final Laboratory WBC 5.5 X10^3/uL (3.6-10.0) 05/03/18 04:04 RBC 2.46 X10^6/uL (4.7-6.0) L 05/03/18 04:04 Hgb 7.8 g/dL (13.5-18.0) L 05/03/18 04:04 Hct 22.6 % (42.0-54.0) L 05/03/18 04:04 MCV 91.8 fL (80.0-100.0) 05/03/18 04:04 MCH 31.7 pg (27.0-34.0) 05/03/18 04:04 MCHC 34.5 g/dL (33.0-35.0) 05/03/18 04:04 RDW 15.7 % (11.6-16.5) 05/03/18 04:04 Plt Count 163 X10^3/uL (150.0-450.0) 05/03/18 04:04 Plt Count Comment Adequate (ADEQUATE) 05/03/18 04:04 MPV 7.8 fL (7.4-11.0) 05/03/18 04:04 Neut % (Auto) 77.4 % (42.0-75.0) H 05/03/18 04:04 Lymph % (Auto) 6.7 % (21.0-51.0) L 05/03/18 04:04 [place] % (Auto) 12.0 % (0.0-13.0) 05/03/18 04:04 Eos % (Auto) 2.9 % (0.9-2.9) 05/03/18 04:04 Baso % (Auto) 1.0 % (0.2-1.0) 05/03/18 04:04 Neut # (Auto) 4.2 x10^3/uL (2.2-4.8) 05/03/18 04:04 Lymph # (Auto) 0.4 X10^3/uL (1.3-2.9) L 05/03/18 04:04 [place] # (Auto) 0.7 x10^3/uL (0.3-0.8) 05/03/18 04:04 Eos # (Auto) 0.2 x10^3/uL (0.0-0.2) 05/03/18 04:04 Baso # (Auto) 0.1 X10^3/uL (0.0-0.1) 05/03/18 04:04 Absolute Nucleated RBC 0.1 /100WBC 05/03/18 04:04 Total Counted 100 04/28/18 07:28 Neutrophils % (Manual) 85 % (39-76) H 04/28/18 07:28 Band Neutrophils % 3 % (0-10) 04/28/18 07:28 Lymphocytes % (Manual) 10 % (13-43) L 04/28/18 07:28 Monocytes % (Manual) 2 % (4-9) L 04/28/18 07:28 Plt Morphology Comment Normal (NORMAL) 05/03/18 04:04 RBC Morphology Abnormal (NORMAL) 05/03/18 04:04 Hypochromasia Slight A 05/03/18 04:04 Anisocytosis Slight A 05/03/18 04:04 D-Dimer 655 ng/mL (0-400) H* 04/23/18 19:00 Sample Site Rr 04/24/18 13:05 ABG pH 7.460 (7.35-7.45) H 04/24/18 13:05 ABG pCO2 38.0 mmHg (35.0-45.0) 04/24/18 13:05 ABG pO2 110.0 mmHg (80.0-100.0) H 04/24/18 13:05 ABG HCO3 27.0 mmol/L (22-26) H 04/24/18 13:05 ABG O2 Saturation 99.0 % (90-100) 04/24/18 13:05 ABG Base Excess 3.1 mmol/L (-2.0-2.0) H 04/24/18 13:05 Gerardo Test Pos 04/24/18 13:05 A-a Gradient 42.0 mmHg 04/24/18 13:05 FiO2 28.0 04/24/18 13:05 Blood Gas Comments Pt nigel well. cdn 04/24/18 13:05 Sodium 142 mmol/L (136-145) 05/03/18 04:04 Corrected Sodium 143 mmol/L (136-145) 05/03/18 04:04 Potassium 4.1 mmol/L (3.5-5.1) 05/03/18 04:04 Chloride 103 mmol/L (98-107) 05/03/18 04:04 Carbon Dioxide 34.1 mmol/L (21-32) H 05/03/18 04:04 BUN 28 mg/dL (7-18) H 05/03/18 04:04 Creatinine 1.10 mg/dL (0.70-1.30) 05/03/18 04:04 Est GFR (MDRD) Af Amer > 60 (>60) 05/03/18 04:04 Est GFR (MDRD) Non-Af > 60 (>60) 05/03/18 04:04 Glucose 152 mg/dL (65-99) H 05/03/18 04:04 POC Glucose (mg/dL) 307 mg/dL (65-99) H 05/03/18 19:59 Calcium 8.7 mg/dL (8.5-10.1) 05/03/18 04:04 Corrected Calcium 10.1 mg/dL (8.5-10.1) 05/03/18 04:04 Magnesium 1.9 mg/dL (1.7-2.9) 04/29/18 03:35 Iron 36 ug/dL (50-175) L 04/25/18 04:52 TIBC 253 ug/dL (250-450) 04/29/18 03:35 Transferrin 200 mg/dL (202-364) L 04/25/18 04:52 Ferritin 70 ng/mL (26-388) 04/25/18 04:52 Total Bilirubin 0.50 mg/dL (0.2-1.0) 05/03/18 04:04 AST 15 Units/L (15-37) 05/03/18 04:04 ALT 22 Units/L (12-78) 05/03/18 04:04 Alkaline Phosphatase 43 Units/L (46-116) L 05/03/18 04:04 B-Natriuretic Peptide 218 pg/mL (0-79) H 04/30/18 04:51 Total Protein 5.7 g/dL (6.4-8.2) L 05/03/18 04:04 Albumin 2.3 g/dL (3.4-5.0) L 05/03/18 04:04 Globulin 3.4 g/dL (2.5-4.5) 05/03/18 04:04 Albumin/Globulin Ratio 0.7 Ratio (1.1-2.1) L 05/03/18 04:04 Vitamin B12 291 pg/mL (193-986) 04/25/18 04:52 Folate > 20.0 ng/mL (>8.6) 04/25/18 04:52 Specimen Type Catherized urine 04/23/18 22: Urine Color Pale yellow (YELLOW) 04/23/18 22: Urine Appearance Clear (CLEAR) 04/23/18 22: Urine pH 6.0 (5.0 - 8.0) 04/23/18 22: Ur Specific [place] 1.005 (1.000-1.030) 04/23/18 22: Urine Protein 2+ (NEGATIVE) 04/23/18 22: Urine Glucose (UA) Negative (NEGATIVE) 04/23/18 22: Urine Ketones Negative (NEGATIVE) 04/23/18 22: Urine Occult Blood 1+ (NEGATIVE) 04/23/18 22: Urine Nitrite Negative (NEGATIVE) 04/23/18 22: Urine Bilirubin Negative (NEGATIVE) 04/23/18 22:27 Urine Urobilinogen Normal (NORMAL) 04/23/18 22:27 Ur Leukocyte Esterase 1+ (NEGATIVE) 04/23/18 22:27 Urine RBC 3-5 /HPF (NONE SEEN) 04/23/18 22:27 Urine WBC 3-5 /HPF (NONE SEEN) 04/23/18 22:27 Ur Squamous Epith Cells Rare /HPF (NEGATIVE) 04/23/18 22:27 Urine Bacteria Negative /HPF (NEGATIVE) 04/23/18 22:27 Hyaline Casts Few /LPF (NEGATIVE) 04/23/18 22:27 Ur Culture Indicated? No/not indicated 04/23/18 22:27 Stool Description 100 g. black/liquid 04/27/18 02:12 Stl Occult Blood (IFOB) Positive (NEGATIVE) A 04/27/18 02:12 Stool for White Cells Negative (NEGATIVE) 04/24/18 07:42 Tissue Pathology To follow 04/28/18 11:32 Blood Type O NEGATIVE 04/27/18 19:37 Antibody Screen Negative 04/27/18 19:37 Crossmatch See Detail 04/27/18 19:37 - Plan (1) Severe anemia Status: Acute Plan: MONITOR H&H. SUPPLEMENTAL O2. S/P ESDOSCOPY, BP CONTROL. RESP THERAPY, IV LASIX, STRICT I&OS. PAIN CONTROL, WE RECOMMEND ALF PLACEMENT/REHAB THERAPY WHEN HGB IS STABLE (2) COPD (chronic obstructive pulmonary disease) Status: Chronic Qualifiers: COPD type: unspecified COPD Qualified Code(s): J44.9 - Chronic obstructive pulmonary disease, unspecified Plan: IV ANTIBIOTICS, RESPIRATORY TX, MICHELLE-DUR 200MG PO BID, SOLU-MEDROL 40MG IV Q8H, CONTINUE TO MONITOR (3) Fluid overload Status: Acute Qualifiers: Hypervolemia type: unspecified Qualified Code(s): E87.70 - Fluid overload, unspecified Plan: CONTINUE LASIX, MONITOR CHEST XRAY
[2018-05-04] MEDS: NORCO 5/325 MG TAB PO PRN (00:54)
[2018-05-04 05:35] LABS: BASOPHILS % (AUTO) 0.2 % (0.2-1.0); HEMATOCRIT 25.6 % (42.0-54.0); HEMOGLOBIN 8.7 g/dL (13.5-18.0); LYMPHOCYTES # (AUTO) 0.2 X10^3/uL (1.3-2.9); LYMPHOCYTES % (AUTO) 3.5 % (21.0-51.0); MEAN CORPUSCULAR HGB CONC 34.2 g/dL (33.0-35.0); MEAN CORPUSCULAR VOLUME 90.6 fL (80.0-100.0); MEAN PLATELET VOLUME 8.1 fL (7.4-11.0); MONOCYTES # (AUTO) 0.2 x10^3/uL (0.3-0.8); MONOCYTES % (AUTO) 3.7 % (0.0-13.0); NEUTROPHILS # (AUTO) 4.5 x10^3/uL (2.2-4.8); NEUTROPHILS % (AUTO) 92.6 % (42.0-75.0); PLATELET COUNT 178 X10^3/uL (150.0-450.0); RED BLOOD COUNT 2.82 X10^6/uL (4.7-6.0); RED CELL DISTRIBUTION WIDTH 15.4 % (11.6-16.5); WHITE BLOOD COUNT 4.9 X10^3/uL (3.6-10.0)
[2018-05-04] MEDS: MUCOMYST 20% 200 MG/ML NEB SCH ×3 (05:40→20:45)
[2018-05-04] MEDS: DUONEB 0.5 MG/3 MG NEB SCH ×3 (05:40→20:45)
[2018-05-04 05:43] LABS: ALANINE AMINOTRANSFERASE 23 Units/L (12-78); ALBUMIN 2.4 g/dL (3.4-5.0); ALKALINE PHOSPHATASE 44 Units/L (46-116); ASPARTATE AMINO TRANSFERASE 15 Units/L (15-37); BLOOD UREA NITROGEN 28 mg/dL (7-18); CALCIUM 9.2 mg/dL (8.5-10.1); CARBON DIOXIDE 28.9 mmol/L (21-32); CHLORIDE 101 mmol/L (98-107); COR CA(FOR HYPOALB) 10.5 mg/dL (8.5-10.1); COR NA(FOR HYPERGLY) 140 mmol/L (136-145); SODIUM 135 mmol/L (136-145); TOTAL PROTEIN 6.3 g/dL (6.4-8.2); eGFR NON BLACK RACES 57 (>60)
[2018-05-04] MEDS: HumuLIN R SUBCUT PRN ×3 (05:45→20:46)
[2018-05-04] MEDS: SOLU-Medrol 40 MG VIAL IVP SCH ×3 (06:04→21:05)
[2018-05-04] MEDS: TESSALON PERLES PO SCH ×3 (06:05→21:05)
[2018-05-04 06:46] LABS: PLATELET MORPHOLOGY COMMENT NORMAL (NORMAL)
[2018-05-04] MEDS ORDERED: GLUCOPHAGE ONE ×2 (08:59→17:32)
[2018-05-04] MEDS: LEVAQUIN PREMIX IV 500 MG 500 MG/100 ML BAG IV SCH (09:08)
[2018-05-04] MEDS: PROTONIX INJ 40 MG VIAL IVP SCH ×2 (09:08→20:46)
[2018-05-04] MEDS: LASIX IVP SCH ×2 (09:08→20:46)
[2018-05-04] MEDS: VALIUM PO PRN ×2 (09:09→17:47)
[2018-05-04] MEDS: VITAMIN D3 PO SCH (09:09)
[2018-05-04] MEDS: MAG-OX TAB PO SCH ×2 (09:10→20:47)
[2018-05-04] MEDS: THEO-DUR TAB 200 MG PO SCH (09:10)
[2018-05-04] MEDS: GLUCOPHAGE PO SCH ×2 (09:10→17:45)
[2018-05-04] MEDS: ACCUPRIL PO SCH (09:11)
[2018-05-04] MEDS: LOVENOX INJ 40 MG SYR SC SCH (09:11)
[2018-05-04] MEDS: MUCINEX EXPECTORANT PO SCH ×2 (09:11→20:47)
[2018-05-04] MEDS: LYRICA CAP 75 MG PO SCH ×2 (09:11→20:48)
[2018-05-04] MEDS: PULMICORT NEB TX 0.5 MG NEB SCH ×2 (09:14→20:45)
[2018-05-04] MEDS: PEPCID 20 MG IV PREMIX* 20 MG/50 ML BAG IV SCH ×2 (10:55→20:46)
[2018-05-04] MEDS: TUSSIONEX PENNKINETIC SUSP PO PRN (14:40)
[2018-05-04] MEDS: ATIVAN TAB 0.5 MG PO PRN ×2 (14:40→16:28)
[2018-05-04] MEDS: NS 1/2 1000 ML IV 1,000 ML IV SCH ×2 (18:57→20:45)
--- NOTE | 2018-05-04 20:28 | PCM.PROG ---
Progress Note - Progress Note for Day of Date of Exam: 05/04/18 - Subjective Subjective: WAS ADMITTED FOR SYMPTOMATIC ANEMIA, DEHYDRATION, AND COPD. HE HAS RECEIVED 7 UNITS OF PACKED RED BLOOD CELLS SINCE ADMISSION. TODAY, HE IS ALERT AND ORIENTED, LYING IN BED ON MORNING ROUNDS. HE CONTINUES WITH SHORTNESS OF BREATH, COUGH, AND GENERALIZED WEAKNESS, BUT REPORTS SLIGHT IMPROVEMENT SINCE YESTERDAY. ON EXAMINATION, HEART IS REGULAR IN RATE AND RHYTHM. BILATERAL LUNGS ARE NOTED WITH SCATTERED WHEEZING AND RHONCHI THROUGHOUT. ABDOMEN IS ROUND, SOFT, AND NOTED WITH MILD, DIFFUSE TENDERNESS. NORMAL BOWEL SOUNDS NOTED IN ALL QUADRANTS. HIS VITALS THIS MORNING ARE 98.5-1 05-23-95%-156/79. LABS WERE OBTAINED. ABNORMAL LAB VALUES INCLUDE THE FOLLOWING: RBC 2.82, HGB 8.7, HCT 25.6, SODIUM 135, BUN 28, GLUCOSE 323, ALK PHOS 44, TOTAL PROTEIN 6.3, ALBUMIN 2.4. STOOL AND SPUTUM CULTURE PENDING. HE IS COOPERATING WELL WITH PHYSICAL THERAPY. TODAY, WE WILL INCREASE MICHELLE-DUR TO 300 PO BID. OTHERWISE, WE PLAN TO FOLLOW UP WITH AM LABS AND CHEST XRAY AND CONTINUE TO MONITOR. - Past Medical Family Social History Past Med/Fam/Surg Hx: No changes since H&P Allergies: Allergies No Known Drug Allergies Allergy (Verified 04/23/18 17:31) - Review of Systems ROS: No change since H&P - Vital Signs and I&O's Vital Signs: Temperature 98.5 F Pulse Rate [Left] 101 Pulse Rate 79 Respiratory Rate 13 Blood Pressure [Left Arm] 159/55 Blood Pressure [Right Arm] 136/80 Blood Pressure 161/81 O2 Sat by Pulse Oximetry 92 Intake and Output: Intake & Output 05/02/18 05/03/18 05/04/18 05/05/18 11:59 11:59 11:59 11:59 Intake Total 1563 / 1563 1496 / 1496 2662 / 2662 340 / 340 Output Total 3600 / 3600 2600 / 2600 4200 / 4200 2100 / 2100 Balance -2037 / -2037 -1104 / -1104 -1538 / -1538 -1760 / -1760 - Physical Exam Oriented: Normal Eyes: Normal Ear: Normal Nose: Normal Throat: Normal Respiratory: Generalized, Diminished Cardiovascular: Normal, Edema : Normal Auscultation: Bowel Sounds: Normal Palpation: Normal Tenderness: Normal Skin: Decreased Turgur Musculoskeletal: Right, Left, Leg, Back:Lumbar Psychiatric: Anxiety Affect: Anxious Speech Pattern: Clear, Appropriate - Laboratory and Diagnostics Result Diagrams: 05/04/18 03:57 05/04/18 03:57 Labs: 04/24/18 07:42 Stool Stool Culture - Final 04/24/18 07:42 Stool - Final 04/24/18 11:40 Sputum - Expectorated Sputum Sputum Culture - Final 04/24/18 11:40 Sputum - Expectorated Sputum - Final Laboratory WBC 4.9 X10^3/uL (3.6-10.0) 05/04/18 03:57 RBC 2.82 X10^6/uL (4.7-6.0) L 05/04/18 03:57 Hgb 8.7 g/dL (13.5-18.0) L 05/04/18 03:57 Hct 25.6 % (42.0-54.0) L 05/04/18 03:57 MCV 90.6 fL (80.0-100.0) 05/04/18 03:57 MCH 31.0 pg (27.0-34.0) 05/04/18 03:57 MCHC 34.2 g/dL (33.0-35.0) 05/04/18 03:57 RDW 15.4 % (11.6-16.5) 05/04/18 03:57 Plt Count 178 X10^3/uL (150.0-450.0) 05/04/18 03:57 Plt Count Comment Adequate (ADEQUATE) 05/04/18 03:57 MPV 8.1 fL (7.4-11.0) 05/04/18 03:57 Neut % (Auto) 92.6 % (42.0-75.0) H 05/04/18 03:57 Lymph % (Auto) 3.5 % (21.0-51.0) L 05/04/18 03:57 [place] % (Auto) 3.7 % (0.0-13.0) 05/04/18 03:57 Eos % (Auto) 0.0 % (0.9-2.9) L 05/04/18 03:57 Baso % (Auto) 0.2 % (0.2-1.0) 05/04/18 03:57 Neut # (Auto) 4.5 x10^3/uL (2.2-4.8) 05/04/18 03:57 Lymph # (Auto) 0.2 X10^3/uL (1.3-2.9) L 05/04/18 03:57 [place] # (Auto) 0.2 x10^3/uL (0.3-0.8) L 05/04/18 03:57 Eos # (Auto) 0.0 x10^3/uL (0.0-0.2) 05/04/18 03:57 Baso # (Auto) 0.0 X10^3/uL (0.0-0.1) 05/04/18 03:57 Absolute Nucleated RBC 0.0 /100WBC 05/04/18 03:57 Total Counted 100 05/04/18 03:57 Neutrophils % (Manual) 92 % (39-76) H 05/04/18 03:57 Band Neutrophils % 3 % (0-10) 04/28/18 07:28 Lymphocytes % (Manual) 6 % (13-43) L 05/04/18 03:57 Monocytes % (Manual) 2 % (4-9) L 05/04/18 03:57 Plt Morphology Comment Normal (NORMAL) 05/04/18 03:57 RBC Morphology Normal (NORMAL) 05/04/18 03:57 Hypochromasia Slight A 05/03/18 04:04 Anisocytosis Slight A 05/03/18 04:04 D-Dimer 655 ng/mL (0-400) H* 04/23/18 19:00 Sample Site Rr 04/24/18 13:05 ABG pH 7.460 (7.35-7.45) H 04/24/18 13:05 ABG pCO2 38.0 mmHg (35.0-45.0) 04/24/18 13:05 ABG pO2 110.0 mmHg (80.0-100.0) H 04/24/18 13:05 ABG HCO3 27.0 mmol/L (22-26) H 04/24/18 13:05 ABG O2 Saturation 99.0 % (90-100) 04/24/18 13:05 ABG Base Excess 3.1 mmol/L (-2.0-2.0) H 04/24/18 13:05 Gerardo Test Pos 04/24/18 13:05 A-a Gradient 42.0 mmHg 04/24/18 13:05 FiO2 28.0 04/24/18 13:05 Blood Gas Comments Pt nigel well. cdn 04/24/18 13:05 Sodium 135 mmol/L (136-145) L 05/04/18 03:57 Corrected Sodium 140 mmol/L (136-145) 05/04/18 03:57 Potassium 4.3 mmol/L (3.5-5.1) 05/04/18 03:57 Chloride 101 mmol/L (98-107) 05/04/18 03:57 Carbon Dioxide 28.9 mmol/L (21-32) 05/04/18 03:57 BUN 28 mg/dL (7-18) H 05/04/18 03:57 Creatinine 1.30 mg/dL (0.70-1.30) 05/04/18 03:57 Est GFR (MDRD) Af Amer > 60 (>60) 05/04/18 03:57 Est GFR (MDRD) Non-Af 57 (>60) L 05/04/18 03:57 Glucose 323 mg/dL (65-99) H 05/04/18 03:57 POC Glucose (mg/dL) 255 mg/dL (65-99) H 05/04/18 20:14 Calcium 9.2 mg/dL (8.5-10.1) 05/04/18 03:57 Corrected Calcium 10.5 mg/dL (8.5-10.1) H 05/04/18 03:57 Magnesium 1.9 mg/dL (1.7-2.9) 04/29/18 03:35 Iron 36 ug/dL (50-175) L 04/25/18 04:52 TIBC 253 ug/dL (250-450) 04/29/18 03:35 Transferrin 200 mg/dL (202-364) L 04/25/18 04:52 Ferritin 70 ng/mL (26-388) 04/25/18 04:52 Total Bilirubin 0.30 mg/dL (0.2-1.0) 05/04/18 03:57 AST 15 Units/L (15-37) 05/04/18 03:57 ALT 23 Units/L (12-78) 05/04/18 03:57 Alkaline Phosphatase 44 Units/L (46-116) L 05/04/18 03:57 B-Natriuretic Peptide 218 pg/mL (0-79) H 04/30/18 04:51 Total Protein 6.3 g/dL (6.4-8.2) L 05/04/18 03:57 Albumin 2.4 g/dL (3.4-5.0) L 05/04/18 03:57 Globulin 3.9 g/dL (2.5-4.5) 05/04/18 03:57 Albumin/Globulin Ratio 0.6 Ratio (1.1-2.1) L 05/04/18 03:57 Vitamin B12 291 pg/mL (193-986) 04/25/18 04:52 Folate > 20.0 ng/mL (>8.6) 04/25/18 04:52 Specimen Type Catherized urine 04/23/18 22:27 Urine Color Pale yellow (YELLOW) 04/23/18 22: Urine Appearance Clear (CLEAR) 04/23/18 22: Urine pH 6.0 (5.0 - 8.0) 04/23/18 22: Ur Specific [place] 1.005 (1.000-1.030) 04/23/18 22: Urine Protein 2+ (NEGATIVE) 04/23/18 22: Urine Glucose (UA) Negative (NEGATIVE) 04/23/18 22: Urine Ketones Negative (NEGATIVE) 04/23/18 22: Urine Occult Blood 1+ (NEGATIVE) 04/23/18 22: Urine Nitrite Negative (NEGATIVE) 04/23/18 22: Urine Bilirubin Negative (NEGATIVE) 04/23/18 22: Urine Urobilinogen Normal (NORMAL) 04/23/18 22: Ur Leukocyte Esterase 1+ (NEGATIVE) 04/23/18 22: Urine RBC 3-5 /HPF (NONE SEEN) 04/23/18 22:27 Urine WBC 3-5 /HPF (NONE SEEN) 04/23/18 22:27 Ur Squamous Epith Cells Rare /HPF (NEGATIVE) 04/23/18 22: Urine Bacteria Negative /HPF (NEGATIVE) 04/23/18 22: Hyaline Casts Few /LPF (NEGATIVE) 04/23/18 22:27 Ur Culture Indicated? No/not indicated 04/23/18 22:27 Stool Description 100 g. black/liquid 04/27/18 02:12 Stl Occult Blood (IFOB) Positive (NEGATIVE) A 04/27/18 02:12 Stool for White Cells Negative (NEGATIVE) 04/24/18 07:42 Tissue Pathology To follow 04/28/18 11:32 Blood Type O NEGATIVE 04/27/18 19:37 Antibody Screen Negative 04/27/18 19:37 Crossmatch See Detail 04/27/18 19:37 - Plan (1) Severe anemia Status: Acute Plan: MONITOR H&H. SUPPLEMENTAL O2. S/P ESDOSCOPY, BP CONTROL. RESP THERAPY, IV LASIX, STRICT I&OS. PAIN CONTROL, WE RECOMMEND [facility] PLACEMENT/REHAB THERAPY WHEN HGB IS STABLE (2) COPD (chronic obstructive pulmonary disease) Status: Chronic Qualifiers: COPD type: unspecified COPD Qualified Code(s): J44.9 - Chronic obstructive pulmonary disease, unspecified Plan: IV ANTIBIOTICS, RESPIRATORY TX, MICHELLE-DUR 200MG PO BID, SOLU-MEDROL 40MG IV Q8H, CONTINUE TO MONITOR (3) Fluid overload Status: Acute Qualifiers: Hypervolemia type: unspecified Qualified Code(s): E87.70 - Fluid overload, unspecified Plan: CONTINUE LASIX, MONITOR CHEST XRAY
[2018-05-04] MEDS ORDERED: NS 1/2 1000 ML IV 1,000 ML ONE (20:32)
[2018-05-04] MEDS: ZOCOR TAB 40 MG PO SCH (20:47)
[2018-05-04] MEDS: SNACK - Diabetic Appropriate PO SCH (20:48)
[2018-05-04] MEDS: THEO-DUR TAB 300 MG PO SCH (20:48)
[2018-05-04] MEDS: FLOMAX PO SCH (20:48)
[2018-05-04] MEDS: RESTORIL CAP 15 MG PO PRN (20:53)
[2018-05-05] MEDS: VALIUM PO PRN (01:00)
[2018-05-05] MEDS: MUCOMYST 20% 200 MG/ML NEB SCH ×3 (05:02→14:45)
[2018-05-05] MEDS: DUONEB 0.5 MG/3 MG NEB SCH ×3 (05:02→14:45)
[2018-05-05] MEDS: SOLU-Medrol 40 MG VIAL IVP SCH (05:58)
[2018-05-05] MEDS: TESSALON PERLES PO SCH (05:58)
[2018-05-05] MEDS: HumuLIN R SUBCUT PRN ×2 (05:59→12:57)
[2018-05-05 06:49] LABS: ALANINE AMINOTRANSFERASE 29 Units/L (12-78); ALBUMIN 2.6 g/dL (3.4-5.0); ALKALINE PHOSPHATASE 38 Units/L (46-116); ASPARTATE AMINO TRANSFERASE 31 Units/L (15-37); BASOPHILS % (AUTO) 0.2 % (0.2-1.0); BLOOD UREA NITROGEN 31 mg/dL (7-18); CALCIUM 9.3 mg/dL (8.5-10.1); CARBON DIOXIDE 29.1 mmol/L (21-32); CHLORIDE 101 mmol/L (98-107); COR CA(FOR HYPOALB) 10.4 mg/dL (8.5-10.1); COR NA(FOR HYPERGLY) 141 mmol/L (136-145); CREATININE 1.09 mg/dL (0.70-1.30); HEMATOCRIT 27.5 % (42.0-54.0); HEMOGLOBIN 9.4 g/dL (13.5-18.0); LYMPHOCYTES # (AUTO) 0.2 X10^3/uL (1.3-2.9); LYMPHOCYTES % (AUTO) 3.3 % (21.0-51.0); MEAN CORPUSCULAR HEMOGLOBIN 30.7 pg (27.0-34.0); MEAN CORPUSCULAR HGB CONC 34.3 g/dL (33.0-35.0); MEAN CORPUSCULAR VOLUME 89.6 fL (80.0-100.0); MEAN PLATELET VOLUME 8.7 fL (7.4-11.0); MONOCYTES # (AUTO) 0.4 x10^3/uL (0.3-0.8); MONOCYTES % (AUTO) 5.7 % (0.0-13.0); NEUTROPHILS # (AUTO) 6.5 x10^3/uL (2.2-4.8); NEUTROPHILS % (AUTO) 90.8 % (42.0-75.0); PLATELET COUNT 166 X10^3/uL (150.0-450.0); RED BLOOD COUNT 3.07 X10^6/uL (4.7-6.0); RED CELL DISTRIBUTION WIDTH 15.1 % (11.6-16.5); SODIUM 137 mmol/L (136-145); TOTAL PROTEIN 6.6 g/dL (6.4-8.2); WHITE BLOOD COUNT 7.1 X10^3/uL (3.6-10.0); eGFR NON BLACK RACES > 60 (>60)
--- NOTE | 2018-05-05 07:21 | RAD ---
HISTORY: Shortness of breath Study: Chest AP portable Comparison: 05/03/2018 Findings: There is a port present on the right. The heart remains enlarged. No congestive heart failure is noted. The right lung is clear. Marked increased density is present in the left upper lobe consistent with consolidation and atelectasis unchanged from the prior examination. The left hemidiaphragm remains elevated. The bony thorax is unremarkable with the exception of a right shoulder hemiarthroplasty on the right and chronic rotator cuff disease on the left. IMPRESSION: No significant change from the prior examination Reported By:
[2018-05-05 07:24] LABS: PLATELET MORPHOLOGY COMMENT NORMAL (NORMAL)
[2018-05-05] MEDS ORDERED: GLUCOPHAGE ONE (08:12)
[2018-05-05] MEDS: PULMICORT NEB TX 0.5 MG NEB SCH (08:40)
[2018-05-05] MEDS: PROTONIX INJ 40 MG VIAL IVP SCH (08:54)
[2018-05-05] MEDS: ACCUPRIL PO SCH (08:55)
[2018-05-05] MEDS: LASIX IVP SCH (08:55)
[2018-05-05] MEDS: LYRICA CAP 75 MG PO SCH (08:55)
[2018-05-05] MEDS: VITAMIN D3 PO SCH (08:55)
[2018-05-05] MEDS: THEO-DUR TAB 300 MG PO SCH (08:55)
[2018-05-05] MEDS: GLUCOPHAGE PO SCH (08:56)
[2018-05-05] MEDS: LEVAQUIN PREMIX IV 500 MG 500 MG/100 ML BAG IV SCH (08:56)
[2018-05-05] MEDS: LOVENOX INJ 40 MG SYR SC SCH (08:56)
[2018-05-05] MEDS: ATIVAN TAB 0.5 MG PO PRN (08:56)
[2018-05-05] MEDS: MUCINEX EXPECTORANT PO SCH (08:56)
[2018-05-05] MEDS: PEPCID 20 MG IV PREMIX* 20 MG/50 ML BAG IV SCH (08:56)
[2018-05-05] MEDS: MAG-OX TAB PO SCH (09:00)
[2018-05-05 09:55] VITALS: BP 184/93
[2018-05-05] MEDS ORDERED: HEMOCYTE-PLUS PO SCH (11:00)
== END 2018-05-05 14:30 | DRG 812 ==
LOC: ER 17:31 → MED/SURG 17:31 → ICU 04-26 11:03 → MED/SURG 05-04 10:00
PROVIDERS: ADMIT Internal Medicine; ATTEND Internal Medicine
DX: R53.1 Weakness; E86.0 Dehydration; I50.9 Heart failure, unspecified; I11.0 Hypertensive heart disease with heart failure; E66.01 Morbid (severe) obesity due to excess calories; R79.1 Abnormal coagulation profile; K29.90 Gastroduodenitis, unspecified, without bleeding; D62 Acute posthemorrhagic anemia; R06.03 Acute respiratory distress; J44.9 Chronic obstructive pulmonary disease, unspecified; R06.02 Shortness of breath; Z85.118 Personal history of other malignant neoplasm of bronchus and lung; K44.9 Diaphragmatic hernia without obstruction or gangrene; R26.89 Other abnormalities of gait and mobility; E87.79 Other fluid overload; E11.65 Type 2 diabetes mellitus with hyperglycemia
CPT/HCPCS: 36415; 36430; 36591; 36600; 51702; 71010; 71045; 71275; 74176; 80053; 81001; 82270; 82378; 82607; 82728; 82746; 82803; 83540; 83550; 83630; 83735; 83880; 84466; 85014; 85018; 85025; 85378; 86850; 86900; 86901; 86922; 87045; 87070; 87205; 87427; 87449; 87899; 88305; 93005; 94640; 94760; 96365; 96374; 97163; 97166; 99100; 99218; 99231; 99284; A4216; A4217; A4222; C9113; P9016; Q0177; S0028; G0378; J1200; J1642; J1650; J1815; J1940; J1956; J2704; J2920; J3010; J3490; J7030; J7040; J7050; J7613; J7620; J7626